=== PATIENT | male | born 1960 | race African-American/Black ===

== ENCOUNTER 2016-08-28 00:13 | Inpatient (IN) | payer MEDICARE, MEDICAID ==
[2016-08-28] VITALS (8 sets, daily range): BP systolic 97–140; BP diastolic 59–78
[~2016-08-28] VITALS: Ht 180.3 cm; Wt 49.9 kg
[2016-08-28] MEDS ORDERED: Morphine Sulfate 2mg/ml Inj IVP ONE (00:30)
[2016-08-28] MEDS ORDERED: Famotidine 20 MG/ 2ML VIAL IVP ONE (01:00)
[2016-08-28 01:16] LABS: APPEARANCE,URINE CLEAR; BASOPHILS % (AUTO) 0.6 % (0.0-2.0); EOSINOPHILS % (AUTO) 1.7 % (0.0-3.0); KETONES,URINE NEGATIVE (NEGATIVE); LEUKOCYTE ESTERASE ,URINE NEGATIVE (NEGATIVE); LYMPHOCYTES % (AUTO) 9.8 % (20.0-45.0); MEAN CORPUSCULAR HEMOGLOBIN 26.6 PG (27.0-31.0); MEAN CORPUSCULAR HGB CONC 31.3 G/DL (32.0-36.0); MEAN CORPUSCULAR VOLUME 85 FL (80-99); MEAN PLATELET VOLUME 5.5 FL (6.5-10.1); MONOCYTES % (AUTO) 5.2 % (1.0-10.0); NEUTROPHILS % (AUTO) 82.7 % (45.0-75.0); NITRITE,URINE NEGATIVE (NEGATIVE); PH,URINE 7 (4.5-8.0); PLATELET COUNT 455 K/UL (150-450); RED BLOOD COUNT 3.73 M/UL (4.70-6.10); RED CELL DISTRIBUTION WIDTH 18.5 % (11.6-14.8); UROBILINOGEN,URINE NORMAL MG/DL (0.0-1.0); WHITE BLOOD COUNT 17.8 K/UL (4.8-10.8)
[2016-08-28 01:17] LABS: PROTEIN,URINE NEGATIVE (NEGATIVE)
[2016-08-28 01:30] LABS: ALANINE AMINOTRANSFERASE 20 U/L (3-41); ALBUMIN/GLOBULIN RATIO 0.6 (1.0-2.7); ANION GAP 13 (5-15); ASPARTATE AMINO TRANSFERASE 34 U/L (5-40); CALCIUM 8.6 mg/dL (8.6-10.2); CARBON DIOXIDE 26 mEQ/L (20-30); CHLORIDE 101 mEQ/L (98-107); CREATININE 0.9 mg/dL (0.7-1.2); GLOMERULAR FILTRATION RATE > 60 mL/min (>60); HEMOLYSIS 19; LIPASE 44 U/L (< 60); POTASSIUM 3.8 mEQ/L (3.4-4.9); SODIUM 140 mEQ/L (135-145); TOTAL PROTEIN 6.3 g/dL (6.6-8.7)
[2016-08-28] MEDS ORDERED: TOPROL XL50 MG ORAL (03:29)
[2016-08-28] MEDS ORDERED: PANTOPRAZOLE SO40 MG ORAL (03:29)
[2016-08-28] MEDS ORDERED: NORCO 10-325 T1 EACH ORAL (03:29)
[2016-08-28] MEDS ORDERED: TAMSULOSIN HCL0.4 MG ORAL (03:29)
[2016-08-28] MEDS ORDERED: DOCUSATE SODIU100 MG ORAL (03:29)
[2016-08-28] MEDS ORDERED: AMLODIPINE BESY10 MG ORAL (03:29)
[2016-08-28] MEDS ORDERED: MILK OF MA2400 MG/10 ORAL (03:29)
--- NOTE | 2016-08-28 03:44 | Emergency Room Report ---
History of Present Illness General Chief Complaint: Abdominal Pain Source: Patient, Medical Record, EMS Present Illness HPI Is a 56-year-old male coming from a senior care. He had a history of gastritis and drug abuse. He was admitted recently to the senior care after abdominal surgery for what sounds like a perforated ulcer. He present tonight with chief complaint abdominal pain with vomiting and diarrhea. This occurred acutely. He said he was vomiting blood and bloody diarrhea. Lerona weak and tired. Denies chest pain. Denies any fever or chills. Pain is 5/10. Allergies: Coded Allergies: No Known Allergies (Unverified , 08/28/16) Patient History Past Medical History: see triage record, old chart reviewed Past Surgical History: other Pertinent Family History: none Social History: Denies: drug use Immunizations: other Reviewed Nursing Documentation: PMH: Agreed, PSxH: Agreed Nursing Documentation-PMH Hx COPD: Yes Hx Cerebrovascular Accident: Yes Review of Systems Eye: Denies: blurred vision, eye pain ENT: Denies: ear pain, nose congestion, throat swelling Respiratory: Denies: cough, shortness of breath Cardiovascular: Denies: chest pain, palpitations Gastrointestinal: Reports: abdominal pain, diarrhea, nausea, vomiting Musculoskeletal: Denies: back pain, joint pain Skin: Denies: rash Neurological: Denies: headache, numbness Endocrine: Denies: increased thirst, increased urine Hematologic/Lymphatic: Denies: easy bruising All Other Systems: negative except mentioned in HPI Physical Exam Vital Signs Date Time Temp Pulse Resp B/P Pulse Ox O2 Delivery O2 Flow Rate FiO2 08/28/16 00:18 97.9 79 18 116/78 100 Room Air vitals normal Sp02 EP Interpretation: reviewed, normal General Appearance: no apparent distress, alert, thin, Chronically Ill Head: normocephalic, atraumatic Eyes: bilateral eye EOMI, bilateral eye PERRL ENT: hearing grossly normal, normal pharynx Neck: full range of motion, supple, no meningismus Respiratory: chest non-tender, lungs clear, normal breath sounds Cardiovascular #1: regular rate, rhythm, no murmur Gastrointestinal: no mass, no organomegaly, no bruit, non-distended, abnormal bowel sounds - Decreased, tenderness - Epigastric Musculoskeletal: back normal, normal range of motion Psychiatric: mood/affect normal Skin: warm/dry Medical Decision Making Diagnostic Impression: Primary Impression: SBO (small bowel obstruction) Additional Impressions: Upper GI bleed Dehydration Anemia in chronic illness ER Course Patient present with epigastric pain and upper GI bleed. Able globe stable. He refused an NG tube. No active bleeding here. Patient hydrated here. Will admit for further workup. Laboratory Tests Test 08/28/16 01:00 White Blood Count 17.8 K/UL (4.8-10.8) H Red Blood Count 3.73 M/UL (4.70-6.10) L Hemoglobin 9.9 G/DL (14.2-18.0) L Hematocrit 31.7 % (42.0-52.0) L Mean Corpuscular Volume 85 FL (80-99) Mean Corpuscular Hemoglobin 26.6 PG (27.0-31.0) L Mean Corpuscular Hemoglobin Concent 31.3 G/DL (32.0-36.0) L Red Cell Distribution Width 18.5 % (11.6-14.8) H Platelet Count 455 K/UL (150-450) H Mean Platelet Volume 5.5 FL (6.5-10.1) L Neutrophils (%) (Auto) 82.7 % (45.0-75.0) H Lymphocytes (%) (Auto) 9.8 % (20.0-45.0) L Monocytes (%) (Auto) 5.2 % (1.0-10.0) Eosinophils (%) (Auto) 1.7 % (0.0-3.0) Basophils (%) (Auto) 0.6 % (0.0-2.0) Urine Color Yellow Urine Appearance Clear Urine pH 7 (4.5-8.0) Urine Specific [place] 1.010 (1.005-1.035) Urine Protein Negative (NEGATIVE) Urine Glucose (UA) 1+ (NEGATIVE) H Urine Ketones Negative (NEGATIVE) Urine Occult Blood Negative (NEGATIVE) Urine Nitrite Negative (NEGATIVE) Urine Bilirubin Negative (NEGATIVE) Urine Urobilinogen Normal MG/DL (0.0-1.0) Urine Leukocyte Esterase Negative (NEGATIVE) Sodium Level 140 mEQ/L (135-145) Potassium Level 3.8 mEQ/L (3.4-4.9) Chloride Level 101 mEQ/L (98-107) Carbon Dioxide Level 26 mEQ/L (20-30) Anion Gap 13 (5-15) Blood Urea Nitrogen 13 mg/dL (7-23) Creatinine 0.9 mg/dL (0.7-1.2) Estimat Glomerular Filtration Rate > 60 mL/min (>60) Glucose Level 143 mg/dL (74-106) H Calcium Level 8.6 mg/dL (8.6-10.2) Total Bilirubin < 0.2 mg/dL (0.0-1.2) Aspartate Amino Transf (AST/SGOT) 34 U/L (5-40) Alanine Aminotransferase (ALT/SGPT) 20 U/L (3-41) Alkaline Phosphatase 98 U/L (40-129) Total Protein 6.3 g/dL (6.6-8.7) L Albumin 2.4 g/dL (3.5-5.2) L Globulin 3.9 g/dL Albumin/Globulin Ratio 0.6 (1.0-2.7) L Lipase 44 U/L (< 60) Lab Results Impression labs with leukocytosis EKG Diagnostic Results EKG Time: 03:43 Rate: normal Rhythm: NSR ST Segments: no acute changes Rhythm Strip Diag. Results Rhythm Strip Time: 03:43 EP Interpretation: yes Rate: 78 Rhythm: NSR, no PVC's, no ectopy CT/MRI/US Diagnostic Results CT/MRI/US Diagnostic Results : Imaging Test Ordered: CT abdomen and pelvis Impression Read by radiologist. Findings concern for obstruction at the level of the third duodenum. Postsurgical changes Last Vital Signs Date Time Temp Pulse Resp B/P Pulse Ox O2 Delivery O2 Flow Rate FiO2 08/28/16 00:25 98.2 76 18 97/59 96 Room Air Status: improved Disposition: ADMITTED INPATIENT Condition: Serious Referrals: NON PHYSICIAN (PCP) NHI LAWRENCE M.D. Aug 28, 2016 03:44
[2016-08-28] MEDS ORDERED: Nitroglycerin Subl 0.4mg tab (Bottle Of 25) SL PRN (07:15)
[2016-08-28] MEDS ORDERED: Miralax 17gm pkt ORAL PRN (07:15)
[2016-08-28] MEDS ORDERED: Mylanta II UD 30ml ORAL PRN (07:15)
--- NOTE | 2016-08-28 07:34 | General Progress Note ---
Progress Note Progress Note Pt with PUD perforation with recent surgery at [facility], discharged 1 week ago, eating well etc.. He developed N/V yesterday with 1 episode of bloody emesis, brought to ED. Now comfortable, no N/V, pain decreased but expected postop pain. Afebrile, VSS Abdomen: soft, BS normal, no masses, old drain sites dry, no distention. WBC 17K H/H OK, Lytes OK. CAT scan abd: distended stomach, otherwise no other obvious problems except for colonic stool large amts. IMP: abdominal pain, 1 episode of bloody emesis yesterday S/P peptic ulcer disease recently operated for perf'd ulcer with OK recovery, R/O gastric outlet obstruction. For now, GI eval, poss endoscopy or UGI series to r/o gastric outlet obstruction. NAM Kang Aug 28, 2016 07:34
--- NOTE | 2016-08-28 08:52 | Diagnostic Imaging Report ---
Indications: Abdominal pain Technique: Continuous helical CT imaging of the abdomen and pelvis was performed with automatic exposure control on a Siemens sensation [address] scanner. Axial, coronal, sagittal images reconstructed at 3 mm slice thickness. No oral or IV contrast was administered per requesting physician's order, despite no contraindications listed. CTDI volume(s): 11 mGy Total DLP: 576 mGy-cm Findings: Comparison: None Lack of IV and oral contrast limits evaluation. Stomach, duodenum to point of crossing between the aorta and superior mesenteric artery are significantly dilated, fluid-filled with air-fluid levels. Multiple branching curvilinear opacities are present adjacent to the gastroduodenal junction. Remainder the gastrointestinal tract nondilated. Multiple segments of small bowel mural thickening in the left side of the abdomen cannot be excluded. Appendix unremarkable. Increased feces throughout colon. He 0.5 cm elongated cystic lesion versus fluid-filled structure resides within or adjacent to the posterior margin of hepatic segment 3. No extraluminal gas or loculated fluid collections demonstrated. Gas is present within multiple mildly dilated left intrahepatic bile ducts. Gallbladder wall is diffusely thickened and edematous. Common bile duct mildly distended and fluid-filled with tiny gas bubble, maximum diameter 8 mm. Subcentimeter circumscribed low-attenuation focus upper pole cortex right kidney. Scattered arterial mural calcifications. No obvious flow-limiting stenosis or occlusion. Urinary bladder distended with apparent mild diffuse mural thickening. Remainder visualized abdominopelvic anatomy demonstrates no other obvious acute abnormality. Increased interstitial markings and dependent portions both lung bases. Disc margin osteophytes lumbar, lower thoracic spine. Impression: Pneumobilia may be secondary to prior sphincterotomy/recent instrumentation, ascending cholangitis, less likely pathologic communication between the bile ducts and adjacent bowel. Diffuse mural thickening/edema of the gallbladder may be secondary to adjacent pathology, though intrinsic inflammation not excluded. Correlate clinically. Nonspecific 3.5 cm fluid-filled structure adjacent to left hepatic lobe, may represent hepatic cysts or adjacent nonspecific fluid collection, etiology indeterminate. Abscess not excludable. Curvilinear densities in right upper quadrant demonstrate a vascular appearance and may represent previous arterial embolization. Correlate historically. Substantial dilation of stomach and duodenum to level of superior mesenteric artery, nondilated distally. This may represent obstruction by extrinsic compression secondary to nutcracker syndrome Pathologic mural thickening of multiple left abdominal small bowel loops not excludable, nonspecific if real Suggestion of constipation Arteriosclerosis Small right renal cortical cyst Pulmonary bibasal interstitial disease, nonspecific Mild degenerative spondylosis Repeat CT scan with full oral and IV contrast preparation recommended for more complete evaluation. This correlates with [facility] preliminary report.
[2016-08-28] MEDS ORDERED: Heparin 5000 units/ml inj SUBQ SCH (09:00)
[2016-08-28] MEDS: D5 1/2NS 1,000 ML IV SCH ×2 (09:50→22:20)
[2016-08-28] MEDS: Piperacillin/Tazobactam 3.375 GM in NS 110 ML IVPB SCH ×2 (10:19→18:12)
--- NOTE | 2016-08-28 12:19 | History and Physical ---
History of Present Illness General Date patient seen: Aug 28, 2016 Reason for Hospitalization: Abdominal Pain Present Illness HPI 56 year old male with hx of Hepatitis C, HTN, cocaine use PUD perforation with recent surgery at [facility], discharged 1 week ago. He developed N/V yesterday with 1 episode of bloody emesis, brought to ED. He is admitted to telemetry for further evaluation. Surgery has seen the patient already. Awaiting GI evaluation. Allergies: Coded Allergies: No Known Allergies (Unverified , 08/28/16) Medication History Scheduled Amlodipine Besylate* (Amlodipine Besylate*), 10 MG ORAL DAILY, (Reported) Docusate Sodium* (Docusate Sodium*), 100 MG ORAL TWICE A DAY, (Reported) Magnesium Hydroxide* (Milk Of Magnesia*), 30 ML ORAL DAILY, (Reported) Metoprolol Succinate* (Toprol Xl*), 50 MG ORAL DAILY, (Reported) Pantoprazole* (Pantoprazole*), 40 MG ORAL DAILY, (Reported) Tamsulosin Hcl (Tamsulosin Hcl*), 0.4 MG ORAL BEDTIME, (Reported) Scheduled PRN Hydrocodone Bit/Acetaminophen 10-325* ([place] 10-325*), 1 TAB ORAL Q6H PRN for For Pain, (Reported) Patient History Healthcare decision maker Resuscitation status Full Code Advanced Directive on File No Past Medical/Surgical History Past Medical/Surgical History: (1) HTN (hypertension) (2) Cocaine abuse (3) Hepatitis C Review of Systems All Other Systems: negative except mentioned in HPI Physical Exam Lines, tubes and drains: central line HEENT: normocephalic, atraumatic Neck: non-tender, normal alignment Respiratory/Chest: chest wall non-tender, lungs clear Breasts: no masses Cardiovascular/Chest: normal peripheral pulses, normal rate Genitourinary/Rectal: normal genital exam Skin Exam: normal pigmentation Last 24 Hour Vital Signs Date Time Temp Pulse Resp B/P Pulse Ox O2 Delivery O2 Flow Rate FiO2 08/28/16 08:43 71 140/78 08/28/16 08:43 79 123/68 08/28/16 08:00 98.2 71 18 140/78 100 Room Air 08/28/16 04:35 98.1 79 20 123/68 100 Room Air 08/28/16 04:34 88 08/28/16 04:25 98.2 72 16 105/69 99 Room Air 08/28/16 04:25 72 16 105/69 99 Room Air 08/28/16 02:20 98.4 74 18 101/68 97 Room Air 08/28/16 01:38 98.4 08/28/16 00:25 98.2 76 18 97/59 96 Room Air 08/28/16 00:18 97.9 79 18 116/78 100 Room Air Intake and Output 08/27/16 08/28/16 19:00 07:00 Intake Total 1120 ml Output Total 300 ml Balance 820 ml Intake Oral 120 ml IV Total 1000 ml Output Urine Total 300 ml # Voids 1 Laboratory Tests Test 08/28/16 01:00 White Blood Count 17.8 K/UL (4.8-10.8) H Red Blood Count 3.73 M/UL (4.70-6.10) L Hemoglobin 9.9 G/DL (14.2-18.0) L Hematocrit 31.7 % (42.0-52.0) L Mean Corpuscular Volume 85 FL (80-99) Mean Corpuscular Hemoglobin 26.6 PG (27.0-31.0) L Mean Corpuscular Hemoglobin Concent 31.3 G/DL (32.0-36.0) L Red Cell Distribution Width 18.5 % (11.6-14.8) H Platelet Count 455 K/UL (150-450) H Mean Platelet Volume 5.5 FL (6.5-10.1) L Neutrophils (%) (Auto) 82.7 % (45.0-75.0) H Lymphocytes (%) (Auto) 9.8 % (20.0-45.0) L Monocytes (%) (Auto) 5.2 % (1.0-10.0) Eosinophils (%) (Auto) 1.7 % (0.0-3.0) Basophils (%) (Auto) 0.6 % (0.0-2.0) Urine Color Yellow Urine Appearance Clear Urine pH 7 (4.5-8.0) Urine Specific [place] 1.010 (1.005-1.035) Urine Protein Negative (NEGATIVE) Urine Glucose (UA) 1+ (NEGATIVE) H Urine Ketones Negative (NEGATIVE) Urine Occult Blood Negative (NEGATIVE) Urine Nitrite Negative (NEGATIVE) Urine Bilirubin Negative (NEGATIVE) Urine Urobilinogen Normal MG/DL (0.0-1.0) Urine Leukocyte Esterase Negative (NEGATIVE) Sodium Level 140 mEQ/L (135-145) Potassium Level 3.8 mEQ/L (3.4-4.9) Chloride Level 101 mEQ/L (98-107) Carbon Dioxide Level 26 mEQ/L (20-30) Anion Gap 13 (5-15) Blood Urea Nitrogen 13 mg/dL (7-23) Creatinine 0.9 mg/dL (0.7-1.2) Estimat Glomerular Filtration Rate > 60 mL/min (>60) Glucose Level 143 mg/dL (74-106) H Calcium Level 8.6 mg/dL (8.6-10.2) Total Bilirubin < 0.2 mg/dL (0.0-1.2) Aspartate Amino Transf (AST/SGOT) 34 U/L (5-40) Alanine Aminotransferase (ALT/SGPT) 20 U/L (3-41) Alkaline Phosphatase 98 U/L (40-129) Total Protein 6.3 g/dL (6.6-8.7) L Albumin 2.4 g/dL (3.5-5.2) L Globulin 3.9 g/dL Albumin/Globulin Ratio 0.6 (1.0-2.7) L Lipase 44 U/L (< 60) Height (Feet): 5 Height (Inches): 11.00 Weight (Pounds): 110 Medications Current Medications Medications (Trade) Dose Ordered Sig/Jaime Route PRN Reason Start Time Stop Time Status Last Admin Dose Admin Acetaminophen (Tylenol) 650 mg Q4H PRN ORAL fever 08/28/16 07:15 09/27/16 07:14 Al Hydroxide/Mg Hydroxide (Mylanta II) 30 ml Q6H PRN ORAL dyspepsia 08/28/16 07:15 09/27/16 07:14 Amlodipine Besylate (Norvasc) 10 mg DAILY ORAL 08/28/16 09:00 09/27/16 08:59 08/28/16 08:43 Dextrose STAT PRN IV Hypoglycemia 08/28/16 07:15 09/27/16 07:14 Dextrose/Sodium Chloride (D5 0.45% NS) 1,000 ml @ 75 mls/hr [id number] IV 08/28/16 09:00 09/27/16 08:59 08/28/16 09:50 Diphenhydramine HCl (Benadryl) 25 mg Q6H PRN ORAL Itching/Pruritis 08/28/16 07:15 09/27/16 07:14 Famotidine (Pepcid I.v.) 20 mg Q12HR IVP 08/28/16 21:00 09/27/16 20:59 Metoprolol Succinate (Toprol XL) 50 mg DAILY ORAL 08/28/16 09:00 09/27/16 08:59 08/28/16 08:43 Morphine Sulfate (Morphine Sulfate) 2 mg EVERY 4 HOURS PRN IVP severe Pain (Pain Scale 7-10) 08/28/16 07:15 09/04/16 07:14 Nitroglycerin (Ntg) 0.4 mg Q5M X 3 DOSES PRN SL Prn Chest Pain 08/28/16 07:15 09/27/16 07:14 Ondansetron HCl (Zofran) 4 mg Q6H PRN IVP Nausea & Vomiting 08/28/16 07:15 09/27/16 07:14 Piperacillin Sod/ Tazobactam Sod/ Sodium Chloride (Zosyn/Sodium Chloride) 110 ml @ 27.5 mls/hr Q8H IVPB 08/28/16 10:00 09/04/16 09:59 08/28/16 10:19 Polyethylene Glycol (Miralax) 17 gm HSPRN PRN ORAL Constipation 08/28/16 07:15 09/27/16 07:14 Tamsulosin HCl 0.4 mg 0.4 mg BEDTIME ORAL 08/28/16 21:00 09/27/16 20:59 Temazepam (Restoril) 15 mg HSPRN PRN ORAL Insomnia 08/28/16 07:15 09/04/16 07:14 Assessment/Plan Problem List: (1) Upper GI bleed ICD Codes: K92.2 - Gastrointestinal hemorrhage, unspecified SNOMED: 76419471 (2) Dehydration ICD Codes: E86.0 - Dehydration SNOMED: 64074696 (3) Perforated gastric ulcer ICD Codes: K25.5 - Chronic or unspecified gastric ulcer with perforation SNOMED: 0827643 (4) HTN (hypertension) ICD Codes: I10 - Essential (primary) hypertension SNOMED: 64194012 (5) Cocaine abuse ICD Codes: F14.10 - Cocaine abuse, uncomplicated SNOMED: 22520925, 466711012 (6) Hepatitis C ICD Codes: B19.20 - Unspecified viral hepatitis C without hepatic coma SNOMED: 63271831 Assessment/Plan NPO IV fluids symptomatic treatment check electrolytes prbc prn dvt prophylaxis monitor bp check h/h in am watch coagulation KASH PAUL Aug 28, 2016 12:19
--- NOTE | 2016-08-28 14:39 | Diagnostic Imaging Report ---
APPROVED REPORT CPT Code: 08913 Present Symptoms Comments: Abdominal pain BILATERAL: Imaging reveals a patent deep venous system bilaterally. There is no evidence of thrombus within the femoral, popliteal or tibial segments. The greater saphenous veins are also within normal limits. Doppler indicates normal spontaneous flow within these segments.
--- NOTE | 2016-08-28 15:17 | GI Initial Consult Note ---
López,Ning Angelo NTucker 08/28/16 1516: History of Present Illness General Date patient seen: Aug 28, 2016 Time patient seen: 15:11 Reason for Hospitalization: Abdominal Pain Referring physician: KASH STROUD Reason for Consultation: UGIB Present Illness HPI Is a 56-year-old male coming from a [facility]. He had a history of gastritis and drug abuse. He was admitted recently to the [facility] after abdominal surgery for what sounds like a perforated ulcer. He present tonight with chief complaint abdominal pain with vomiting and diarrhea. This occurred acutely. He said he was vomiting blood and bloody diarrhea. [place] weak and tired. Denies chest pain. Denies any fever or chills. Pain is 5/10. GI Consult. HPI as noted above. GI consulted for UGIB. Pt seen on floor, awake A&Ox4 NAD with no active s/sx of hematemesis or coffee grounds. According to the patient, he recently underwent an abdominal surgical at [facility] for possible umbilical hernia repair vs ulcer perforation. He stated he had episodes of hematemesis with bloody diarrhea. He presents today with leukocytosis and anemia due to acute blood loss. Unknown colonoscopy history. Home Meds Reported Medications Magnesium Hydroxide* (MILK OF MAGNESIA*) 2,400 Mg/10 Ml Oral.susp, 30 ML ORAL DAILY, ML 08/28/16 Hydrocodone Bit/Acetaminophen 10-325* (NORCO 10-325*) 1 Each Tablet, 1 TAB ORAL Q6H Y for For Pain, #10 TAB 0 Refills PRN PAIN 08/28/16 Docusate Sodium* (DOCUSATE SODIUM*) 100 Mg Capsule, 100 MG ORAL TWICE A DAY, CAP 08/28/16 Pantoprazole* (PANTOPRAZOLE*) 40 Mg Tablet.dr, 40 MG ORAL DAILY, TAB 08/28/16 Tamsulosin Hcl (TAMSULOSIN HCL*) 0.4 Mg Cap.er.24h, 0.4 MG ORAL BEDTIME, CAP 08/28/16 Metoprolol Succinate* (TOPROL XL*) 50 Mg Tab.er.24h, 50 MG ORAL DAILY, TAB 08/28/16 Amlodipine Besylate* (AMLODIPINE BESYLATE*) 10 Mg Tablet, 10 MG ORAL DAILY, TAB 08/28/16 Med list reviewed/reconciled: Yes Allergies: Coded Allergies: No Known Allergies (Unverified , 08/28/16) Patient History History Provided By: Patient, Medical Record PMH Narrative Hx COPD: Yes Hx Cerebrovascular Accident: Yes Social History: Reports: alcohol use - social, smoking - 20+ years Review of Systems All Other Systems: negative except mentioned in HPI Physical Exam Vital Signs Date Time Temp Pulse Resp B/P Pulse Ox O2 Delivery O2 Flow Rate FiO2 08/28/16 00:18 97.9 79 18 116/78 100 Room Air Sp02 EP Interpretation: reviewed Labs Laboratory Tests Test 08/28/16 01:00 White Blood Count 17.8 K/UL (4.8-10.8) H Red Blood Count 3.73 M/UL (4.70-6.10) L Hemoglobin 9.9 G/DL (14.2-18.0) L Hematocrit 31.7 % (42.0-52.0) L Mean Corpuscular Volume 85 FL (80-99) Mean Corpuscular Hemoglobin 26.6 PG (27.0-31.0) L Mean Corpuscular Hemoglobin Concent 31.3 G/DL (32.0-36.0) L Red Cell Distribution Width 18.5 % (11.6-14.8) H Platelet Count 455 K/UL (150-450) H Mean Platelet Volume 5.5 FL (6.5-10.1) L Neutrophils (%) (Auto) 82.7 % (45.0-75.0) H Lymphocytes (%) (Auto) 9.8 % (20.0-45.0) L Monocytes (%) (Auto) 5.2 % (1.0-10.0) Eosinophils (%) (Auto) 1.7 % (0.0-3.0) Basophils (%) (Auto) 0.6 % (0.0-2.0) Urine Color Yellow Urine Appearance Clear Urine pH 7 (4.5-8.0) Urine Specific [place] 1.010 (1.005-1.035) Urine Protein Negative (NEGATIVE) Urine Glucose (UA) 1+ (NEGATIVE) H Urine Ketones Negative (NEGATIVE) Urine Occult Blood Negative (NEGATIVE) Urine Nitrite Negative (NEGATIVE) Urine Bilirubin Negative (NEGATIVE) Urine Urobilinogen Normal MG/DL (0.0-1.0) Urine Leukocyte Esterase Negative (NEGATIVE) Sodium Level 140 mEQ/L (135-145) Potassium Level 3.8 mEQ/L (3.4-4.9) Chloride Level 101 mEQ/L (98-107) Carbon Dioxide Level 26 mEQ/L (20-30) Anion Gap 13 (5-15) Blood Urea Nitrogen 13 mg/dL (7-23) Creatinine 0.9 mg/dL (0.7-1.2) Estimat Glomerular Filtration Rate > 60 mL/min (>60) Glucose Level 143 mg/dL (74-106) H Calcium Level 8.6 mg/dL (8.6-10.2) Total Bilirubin < 0.2 mg/dL (0.0-1.2) Aspartate Amino Transf (AST/SGOT) 34 U/L (5-40) Alanine Aminotransferase (ALT/SGPT) 20 U/L (3-41) Alkaline Phosphatase 98 U/L (40-129) Total Protein 6.3 g/dL (6.6-8.7) L Albumin 2.4 g/dL (3.5-5.2) L Globulin 3.9 g/dL Albumin/Globulin Ratio 0.6 (1.0-2.7) L Lipase 44 U/L (< 60) General Appearance: well appearing, no apparent distress, alert, thin Head: normocephalic EENT: normal ENT inspection Neck: full range of motion, supple Respiratory: normal breath sounds, no respiratory distress Cardiovascular: normal rate Gastrointestinal: soft Rectal: deferred Genitourinary: no CVA tenderness Musculoskeletal: back normal Neurologic: normal inspection, alert, oriented x3, responsive Psychiatric: normal inspection, judgement/insight normal, memory normal Skin: normal inspection, normal color, no rash, warm/dry Lymphatic: normal inspection, no adenopathy Current Medications Current Medications Medications (Trade) Dose Ordered Sig/Jaime Route PRN Reason Start Time Stop Time Status Last Admin Dose Admin Acetaminophen (Tylenol) 650 mg Q4H PRN ORAL fever 08/28/16 07:15 09/27/16 07:14 Al Hydroxide/Mg Hydroxide (Mylanta II) 30 ml Q6H PRN ORAL dyspepsia 08/28/16 07:15 09/27/16 07:14 Amlodipine Besylate (Norvasc) 10 mg DAILY ORAL 08/28/16 09:00 09/27/16 08:59 08/28/16 08:43 Dextrose STAT PRN IV Hypoglycemia 08/28/16 07:15 09/27/16 07:14 Dextrose/Sodium Chloride (D5 0.45% NS) 1,000 ml @ 75 mls/hr [id number] IV 08/28/16 09:00 09/27/16 08:59 08/28/16 09:50 Diphenhydramine HCl (Benadryl) 25 mg Q6H PRN ORAL Itching/Pruritis 08/28/16 07:15 09/27/16 07:14 Famotidine (Pepcid I.v.) 20 mg Q12HR IVP 08/28/16 21:00 09/27/16 20:59 Metoprolol Succinate (Toprol XL) 50 mg DAILY ORAL 08/28/16 09:00 09/27/16 08:59 08/28/16 08:43 Morphine Sulfate (Morphine Sulfate) 2 mg EVERY 4 HOURS PRN IVP severe Pain (Pain Scale 7-10) 08/28/16 07:15 09/04/16 07:14 Nitroglycerin (Ntg) 0.4 mg Q5M X 3 DOSES PRN SL Prn Chest Pain 08/28/16 07:15 09/27/16 07:14 Ondansetron HCl (Zofran) 4 mg Q6H PRN IVP Nausea & Vomiting 08/28/16 07:15 09/27/16 07:14 Piperacillin Sod/ Tazobactam Sod/ Sodium Chloride (Zosyn/Sodium Chloride) 110 ml @ 27.5 mls/hr Q8H IVPB 08/28/16 10:00 09/04/16 09:59 08/28/16 10:19 Polyethylene Glycol (Miralax) 17 gm HSPRN PRN ORAL Constipation 08/28/16 07:15 09/27/16 07:14 Tamsulosin HCl 0.4 mg 0.4 mg BEDTIME ORAL 08/28/16 21:00 09/27/16 20:59 Temazepam (Restoril) 15 mg HSPRN PRN ORAL Insomnia 08/28/16 07:15 09/04/16 07:14 GI: Plan Problems: (1) Severe malnutrition (2) Hepatitis C (3) Anemia in chronic illness (4) Upper GI bleed (5) Perforated gastric ulcer (6) Dehydration Plan EGD scheduled for tomorrow. - CLD, NPO @ [place]. - hold all blood thinners monitor H&H, transfuse prn ppi BID abx fu labs obtain records from [facility] Discussed with . Thank you for referring this patient, we will follow. GAYLE GARCIA 08/29/16 1113: History of Present Illness General Reason for Hospitalization: Abdominal Pain Present Illness Home Meds Reported Medications Magnesium Hydroxide* (MILK OF MAGNESIA*) 2,400 Mg/10 Ml Oral.susp, 30 ML ORAL DAILY, ML 08/28/16 Hydrocodone Bit/Acetaminophen 10-325* (NORCO 10-325*) 1 Each Tablet, 1 TAB ORAL Q6H Y for For Pain, #10 TAB 0 Refills PRN PAIN 08/28/16 Docusate Sodium* (DOCUSATE SODIUM*) 100 Mg Capsule, 100 MG ORAL TWICE A DAY, CAP 08/28/16 Pantoprazole* (PANTOPRAZOLE*) 40 Mg Tablet.dr, 40 MG ORAL DAILY, TAB 08/28/16 Tamsulosin Hcl (TAMSULOSIN HCL*) 0.4 Mg Cap.er.24h, 0.4 MG ORAL BEDTIME, CAP 08/28/16 Metoprolol Succinate* (TOPROL XL*) 50 Mg Tab.er.24h, 50 MG ORAL DAILY, TAB 08/28/16 Amlodipine Besylate* (AMLODIPINE BESYLATE*) 10 Mg Tablet, 10 MG ORAL DAILY, TAB 08/28/16 Allergies: Coded Allergies: No Known Allergies (Unverified , 08/28/16) GI: Plan Plan The patient was seen and examined at bedside and all new and available data was reviewed in the patients chart. I agree with the above findings, impression and plan. (Patient seen earlier today. Signature stamp does not reflect patient encounter time.). -Ester Ray MDh Angelo Covarrubias Aug 28, 2016 15:16 AGYLE GARCIA Aug 29, 2016 11:13
--- NOTE | 2016-08-28 18:37 | Consultation ---
Consult Note Consult Note ID CONSULT: Dict# [id number] Assessment/Plan ASSESSMENT: 56 y/o male with: // Pneumobilia - post-op vs r/o cholangitis / cholecystitis - LFTs WNL - CT: Diffuse mural thickening/edema of the gallbladder may be secondary to adjacent pathology, though intrinsic inflammation not excluded. // Nonspecific 3.5 cm fluid-filled structure adjacent to left hepatic lobe, may represent hepatic cysts or adjacent nonspecific fluid collection, etiology indeterminate. Abscess not excludable. // h/o HCV - LFTs WNL // Leukocytosis, left shift, afebrile // UGIB / hematemesis - GI following, plan EGD - SP recent perforated PUD, hernia repair @ [facility] // Acute blood loss anemia // Gastric distension r/o gastric outlet obstruction // Thrombocytosis // Cachexia // h/o polysubstance abuse // [place] resident // NKDA // Full Code PLAN: - continue empiric zosyn d# 1 - check blood cultures, HIV - EGD per GI - monitor H&H, transfuse prn - monitor CBC, temperatures - monitor CMP Thanks! Will follow COLTON GALVAN Aug 28, 2016 18:37
[2016-08-28] MEDS: Tamsulosin 0.4mg cap ORAL SCH (20:20)
[2016-08-28] MEDS ORDERED: Famotidine 20 MG/ 2ML VIAL IVP SCH (21:00)
[2016-08-28] MEDS: Morphine Sulfate 2mg/ml Inj IVP PRN (21:10)
--- NOTE | 2016-08-28 22:00 | Consultation ---
DATE OF CONSULTATION: 08/28/2016 INFECTIOUS DISEASE CONSULTATION REQUESTING PHYSICIAN: Nilesh Reddy M.D. REASON FOR CONSULTATION: Leukocytosis. HISTORY OF PRESENT ILLNESS: This is a 56-year-old male with a history of polysubstance abuse, was [facility] on [facility]/2016 for evaluation of nausea and hematemesis. The patient reported that he recently had a perforated peptic ulcer repair at [facility]. Denies abdominal pain, fevers, or chills. He has leukocytosis with left shift. No fevers. Hemoglobin is 9.9 and reactive thrombocytosis. No cultures have been sent and he has been started on empiric Zosyn. ID now consulted to assist in management. PAST MEDICAL HISTORY: 1. Gastroesophageal reflux disease. 2. Hepatitis C. 3. Hypertension. 4. Chronic obstructive pulmonary disease. 5. Peptic ulcer disease. 6. History of stroke. PAST SURGICAL HISTORY: Perforated peptic ulcer and hernia repair at [facility]. ALLERGIES: No known drug allergies. MEDICATIONS: 1. Zosyn. 2. Flomax. 3. Protonix. 4. Norvasc. 5. Metoprolol. FAMILY HISTORY: Noncontributory. SOCIAL HISTORY: The patient is resident of a [facility]. He has a history of polysubstance abuse. REVIEW OF SYSTEMS: As per history of present illness. Ten systems reviewed. All pertinent positives and negatives noted. PHYSICAL EXAMINATION: VITAL SIGNS: Maximum temperature 98.4 degrees, blood pressure 111/60, heart rate in the 70s, respiratory rate is 17, and saturating at 100% on room air. GENERAL: No apparent distress. Nontoxic appearing. HEENT: Poor dentition. No thrush. CARDIOVASCULAR: Regular rate and rhythm. No murmurs. PULMONARY: Clear to auscultation bilaterally. GASTROINTESTINAL: Well-healed surgical incision. Hypoactive bowel sounds. Nondistended. Mild tenderness to palpation. MUSCULOSKELETAL: No edema. SKIN: No rash. NEUROLOGIC: Alert and oriented x3, nonfocal. LABORATORY DATA: White blood cell count 17.8 with left shift, hemoglobin 9.9, and platelets 455,000. Sodium 140, potassium 3.8, chloride 101, bicarbonate 26, BUN 13, and creatinine 0.9. Liver function tests and lipase are within normal limits. Urinalysis is negative. MICROBIOLOGY: None. IMAGIN. On 08/28/2016, bilateral lower extremity Doppler ultrasound negative for DVT. 2. CT of abdomen and pelvis with pneumobilia, gallbladder wall thickening, perihepatic fluid, gastric and duodenal distention. Please refer to the full report for full details. ASSESSMENT: 1. Pneumobilia may be postoperative in nature rule out cholangitis or cholecystitis. Liver function tests are within normal limits. CT shows diffuse wall thickening of the gallbladder. 2. Nonspecific perihepatic fluid. Abscess not excludable. 3. History of hepatitis C with normal liver function tests. 4. Leukocytosis with left shift and afebrile. 5. Upper gastrointestinal bleed/hematemesis. Gastrointestinal is following and is planned for esophagogastroduodenoscopy. He is status post recent perforated peptic ulcer and hernia repair at [facility]. 6. Acute blood loss anemia. 7. Gastric distention rule out gastric outlet obstruction. 8. Thrombocytosis. 9. Cachexia. 10. History of polysubstance abuse. 11. skilled nursing resident. 12. No known drug allergies. 13. Full Code. PLAN: 1. Continue empiric Zosyn day #1. 2. Check blood cultures. 3. Upper endoscopy per GI. 4. Monitor H and H and transfuse as needed. 5. Monitor CBC and temperatures. 6. Monitor CMP. Thank you. We will follow. Hector Davidson M.D. DR: FLYNN JOB#: [id number] CC: Nilesh Reddy M.D.; Fax#: [phone] Palu M.D; Fax#: [phone]
[2016-08-29] VITALS (10 sets, daily range): BP systolic 99–140; BP diastolic 60–90
--- NOTE | 2016-08-29 00:29 | Wound Care Consultation ---
Wound Assessment Wound Assessment #1: Wound Present on Admission: Yes New Wound: No Status Change of Wound: No Wound Location Body Site Modif: mid Wound Location Body Site: sacral Wound Type: pressure ulcer Deborah Test: Does not Deborah Wound Thickness: Full Thickness - sacr tissue Wound Length: 1.0 Wound Width: 1.0 Percent of Wound [place]/Red: 100 Wound Drainage Amount: None Wound Drainage Odor: None/Absent Tissue Surrounding Wound: Intact Wound General Appearance: Asymptomatic Wound Assessment #2: Wound Number: #2 Wound Present on Admission: Yes New Wound: No Status Change of Wound: No Wound Location Body Site Modif: right Wound Location Body Site: knee Wound Type: pressure ulcer Deborah Test: Does not Deborah Pressure Ulcer Stage: II - resolving Wound Thickness: Partial Thickness Wound Length: 1.5 Wound Width: 1.0 Percent of Wound [place]/Red: 100 Wound Drainage Amount: None Wound Drainage Odor: None/Absent Tissue Surrounding Wound: Intact Wound General Appearance: Reddened Wound Assessment #3: Wound Number: #3 Wound Present on Admission: Yes New Wound: No Status Change of Wound: No Wound Location Body Site: back Wound Type: pressure ulcer Deborah Test: Does not Deborah Pressure Ulcer Stage: II Wound Thickness: Partial Thickness Wound Length: 0.8 Wound Width: 0.5 Wound Depth: 0.1 Percent of Wound [place]/Red: 100 Wound Drainage Description: Serosanguineous Wound Drainage Amount: Scant Wound Drainage Odor: None/Absent Tissue Surrounding Wound: Intact Wound General Appearance: Reddened Wound Comment #1 Sacral area full thickness scar tissue pressure ulcer #2 Right knee stage II resolving pressure ulcer #3 Mid Back stage II pressure ulcer #4 Scattered dry scabs on abdominal area Recommendation -Right knee stage II resolving pressure ulcer and Mid Back stage II pressure ulcer Cleanse with saline, pat dry, apply Triad cream, cover with bordered gauze daily and PRN soiled/dislodged -Keep clean and dry -Turn and reposition -Optimize nutrition -Low air loss SPR overlay mattress -Heel protector on both heels -Offload both heels -Assess and f/u accordingly for any changes BERONICA MOODY RN Aug 29, 2016 00:29
[2016-08-29] MEDS: Piperacillin/Tazobactam 3.375 GM in NS 110 ML IVPB SCH ×3 (02:25→20:37)
--- NOTE | 2016-08-29 06:41 | Anethesia Preoperative Eval ---
Anesthesia Pre-op PMH/ROS General Date of Evaluation: Aug 29, 2016 Time of Evaluation: 06:40 Anesthesiologist: chela Mallampati Score Class I : Soft palate, uvula, fauces, pillars visible Class II: Soft palate, uvula, fauces visible Class III: Soft palate, base of uvula visible Class IV: Only hard plate visible Mallampati Classification: Class II Surgeon: tyshawn Diagnosis: gibleed Surgical Procedure: colonoscopy Anesthesia History: none Social History: smoking Family History: no anesthesia problems Allergies: Coded Allergies: No Known Allergies (Unverified , 08/28/16) Medications: see eMAR Past Medical History Pulmonary: Reports: COPD Neurologic/Psychiatric: Reports: CVA Hematology/Immune: Reports: anemia PMH Narrative: substance abuse Anesthesia Pre-op Phys. Exam Physician Exam Last Vital Signs Date Time Temp Pulse Resp B/P Pulse Ox O2 Delivery O2 Flow Rate FiO2 08/29/16 11:21 97.5 91 20 114/74 100 Nasal Cannula 2.0 Last Vital Signs Date Time Temp Pulse Resp B/P Pulse Ox O2 Delivery O2 Flow Rate FiO2 08/29/16 04:00 97.6 100 20 99/64 100 Room Air Constitutional: NAD Neurologic: CN 2-12 intact Cardiovascular: RRR Respiratory: CTA Gastrointestinal: S/NT/ND Airway Exam Mallampati Score: Class II MO: full Neck: supple TMD: 2fb ROM: full Teeth: missing Anesthesia Pre-op A/P Labs Labs Test 08/28/16 01:00 08/29/16 07:25 White Blood Count 17.8 K/UL (4.8-10.8) 11.2 K/UL (4.8-10.8) Red Blood Count 3.73 M/UL (4.70-6.10) 2.41 M/UL (4.70-6.10) Hemoglobin 9.9 G/DL (14.2-18.0) 6.5 G/DL (14.2-18.0) Hematocrit 31.7 % (42.0-52.0) 20.4 % (42.0-52.0) Mean Corpuscular Volume 85 FL (80-99) 85 FL (80-99) Mean Corpuscular Hemoglobin 26.6 PG (27.0-31.0) 27.1 PG (27.0-31.0) Mean Corpuscular Hemoglobin Concent 31.3 G/DL (32.0-36.0) 31.9 G/DL (32.0-36.0) Red Cell Distribution Width 18.5 % (11.6-14.8) 19.0 % (11.6-14.8) Platelet Count 455 K/UL (150-450) 367 K/UL (150-450) Mean Platelet Volume 5.5 FL (6.5-10.1) 5.4 FL (6.5-10.1) Neutrophils (%) (Auto) 82.7 % (45.0-75.0) % (45.0-75.0) Lymphocytes (%) (Auto) 9.8 % (20.0-45.0) % (20.0-45.0) Monocytes (%) (Auto) 5.2 % (1.0-10.0) % (1.0-10.0) Eosinophils (%) (Auto) 1.7 % (0.0-3.0) % (0.0-3.0) Basophils (%) (Auto) 0.6 % (0.0-2.0) % (0.0-2.0) Urine Color Yellow Urine Appearance Clear Urine pH 7 (4.5-8.0) Urine Specific [place] 1.010 (1.005-1.035) Urine Protein Negative (NEGATIVE) Urine Glucose (UA) 1+ (NEGATIVE) Urine Ketones Negative (NEGATIVE) Urine Occult Blood Negative (NEGATIVE) Urine Nitrite Negative (NEGATIVE) Urine Bilirubin Negative (NEGATIVE) Urine Urobilinogen Normal MG/DL (0.0-1.0) Urine Leukocyte Esterase Negative (NEGATIVE) Sodium Level 140 mEQ/L (135-145) 139 mEQ/L (135-145) Potassium Level 3.8 mEQ/L (3.4-4.9) 4.0 mEQ/L (3.4-4.9) Chloride Level 101 mEQ/L (98-107) 101 mEQ/L (98-107) Carbon Dioxide Level 26 mEQ/L (20-30) 25 mEQ/L (20-30) Anion Gap 13 (5-15) 13 (5-15) Blood Urea Nitrogen 13 mg/dL (7-23) 29 mg/dL (7-23) Creatinine 0.9 mg/dL (0.7-1.2) 0.9 mg/dL (0.7-1.2) Estimat Glomerular Filtration Rate > 60 mL/min (>60) > 60 mL/min (>60) Glucose Level 143 mg/dL (74-106) 110 mg/dL (74-106) Calcium Level 8.6 mg/dL (8.6-10.2) 8.3 mg/dL (8.6-10.2) Total Bilirubin < 0.2 mg/dL (0.0-1.2) < 0.2 mg/dL (0.0-1.2) Aspartate Amino Transf (AST/SGOT) 34 U/L (5-40) 26 U/L (5-40) Alanine Aminotransferase (ALT/SGPT) 20 U/L (3-41) 17 U/L (3-41) Alkaline Phosphatase 98 U/L (40-129) 63 U/L (40-129) Total Protein 6.3 g/dL (6.6-8.7) 6.0 g/dL (6.6-8.7) Albumin 2.4 g/dL (3.5-5.2) 2.4 g/dL (3.5-5.2) Globulin 3.9 g/dL 3.6 g/dL Albumin/Globulin Ratio 0.6 (1.0-2.7) 0.6 (1.0-2.7) Lipase 44 U/L (< 60) 29 U/L (< 60) Differential Total Cells Counted 100 Neutrophils % (Manual) 76 % (45-75) Lymphocytes % (Manual) 21 % (20-45) Monocytes % (Manual) 2 % (1-10) Eosinophils % (Manual) 1 % (0-3) Basophils % (Manual) 0 % (0-2) Band Neutrophils 0 % (0-8) Other Cell Type Pathologist comment Platelet Estimate Adequate Platelet Morphology Normal Hypochromasia 1+ Anisocytosis 1+ Prothrombin Time 10.0 SEC (9.30-11.50) Prothromb Time International Ratio 1.0 (0.9-1.1) Activated Partial Thromboplast Time 26 SEC (23-33) Amylase Level 69 U/L (10-110) HIV (1&2) Antibody Rapid Negative (NEGATIVE) Risk Assessment & Plan Assessment: gi bleed anemia Plan: colonoscopy Status Change Before Surgery: No Pre-Antibiotics Drug: LUIGI Gan Aug 29, 2016 06:41
--- NOTE | 2016-08-29 07:58 | General Progress Note ---
Progress Note Progress Note Afebrile, wants to "go home".. No pain, no N/V or distention. Awaiting UGI endoscopy today. Nothing surgical at this time unless GI finds an obstructive process. NAM GILLESPIE Aug 29, 2016 07:58
[2016-08-29 08:02] LABS: MEAN CORPUSCULAR HEMOGLOBIN 27.1 PG (27.0-31.0); MEAN CORPUSCULAR HGB CONC 31.9 G/DL (32.0-36.0); MEAN CORPUSCULAR VOLUME 85 FL (80-99); MEAN PLATELET VOLUME 5.4 FL (6.5-10.1); PLATELET COUNT 367 K/UL (150-450); RED BLOOD COUNT 2.41 M/UL (4.70-6.10); WHITE BLOOD COUNT 11.2 K/UL (4.8-10.8)
[2016-08-29 08:31] LABS: ALANINE AMINOTRANSFERASE 17 U/L (3-41); ALBUMIN/GLOBULIN RATIO 0.6 (1.0-2.7); AMYLASE 69 U/L (10-110); ANION GAP 13 (5-15); ASPARTATE AMINO TRANSFERASE 26 U/L (5-40); CALCIUM 8.3 mg/dL (8.6-10.2); CARBON DIOXIDE 25 mEQ/L (20-30); CHLORIDE 101 mEQ/L (98-107); CREATININE 0.9 mg/dL (0.7-1.2); GLOMERULAR FILTRATION RATE > 60 mL/min (>60); HEMOLYSIS 1; LIPASE 29 U/L (< 60); SODIUM 139 mEQ/L (135-145)
[2016-08-29] MEDS: Morphine Sulfate 2mg/ml Inj IVP PRN ×4 (08:35→20:39)
--- NOTE | 2016-08-29 09:18 | Pre-Procedure Note/Attestation ---
Pre-Procedure Note/Attestation Complete Prior to Procedure Planned Procedure: not applicable Procedure Narrative: egd Indications for Procedure Pre-Operative Diagnosis: gib Attestation I attest that I discussed the nature of the procedure; its benefits; risks and complications; and alternatives (and the risks and benefits of such alternatives ), prior to the procedure, with the patient (or the patient's legal installation service representative). I attest that, if there was a reasonable possibility of needing a blood transfusion, the patient (or the patient's legal installation service representative) was given the [facility] standardized written summary, pursuant to the Deandre Sanju Blood Safety Act ([place] Health and Safety Code # 1645, as amended). I attest that I re-evaluated the patient just prior to the surgery and that there has been no change in the patient's H&P, except as documented below: GAYLE GARCIA Aug 29, 2016 09:18
[2016-08-29 09:33] LABS: ANISOCYTOSIS 1+; BAND NEUTROPHILS % (MANUAL) 0 % (0-8); BASOPHILS % (MANUAL) 0 % (0-2); EOSINOPHILS % (MANUAL) 1 % (0-3); HYPOCHROMASIA 1+; LYMPHOCYTES % (MANUAL) 21 % (20-45); NEUTROPHILS % (MANUAL) 76 % (45-75); PLATELET ESTIMATE ADEQUATE; PLATELET MORPHOLOGY NORMAL; TOTAL CELLS COUNTED 100
--- NOTE | 2016-08-29 10:00 | Infectious Diseases Prog Note ---
Assessment/Plan Assessment/Plan ASSESSMENT: 56 y/o male with: // Pneumobilia - post-op doubt cholangitis vs cholecystitis - LFTs WNL - CT: Diffuse mural thickening/edema of the gallbladder may be secondary to adjacent pathology, though intrinsic inflammation not excluded. // Nonspecific 3.5 cm fluid-filled structure adjacent to left hepatic lobe, may represent hepatic cysts or adjacent nonspecific fluid collection, etiology indeterminate. Abscess not excludable. // h/o HCV - LFTs WNL // Leukocytosis, left shift, improving // HIV: neg // UGIB / hematemesis - GI following, plan EGD - SP recent perforated PUD, hernia repair @ [facility] // Acute blood loss anemia // Gastric distension r/o gastric outlet obstruction // Thrombocytosis // Cachexia // h/o polysubstance abuse // [facility] resident // NKDA // Full Code PLAN: - continue empiric zosyn d# 2 - monitor blood cultures, - EGD per GI - monitor H&H, transfuse prn - monitor CBC, temperatures - monitor CMP - GI and GenSx following Subjective Allergies: Coded Allergies: No Known Allergies (Unverified , 08/28/16) Subjective EGD today Objective Vital Signs Last 24 Hour Vital Signs Date Time Temp Pulse Resp B/P Pulse Ox O2 Delivery O2 Flow Rate FiO2 08/29/16 07:42 97.0 107 20 100/61 99 Room Air 08/29/16 04:00 97.6 100 20 99/64 100 Room Air 08/29/16 04:00 109 08/29/16 00:00 97.6 114 20 116/60 100 Room Air 08/29/16 00:00 120 08/28/16 20:00 79 08/28/16 20:00 99.5 79 20 131/77 100 Room Air 08/28/16 16:00 99.5 82 17 111/68 100 Room Air 08/28/16 16:00 88 08/28/16 12:00 99.4 77 18 127/75 100 Room Air 08/28/16 12:00 77 Height (Feet): 5 Height (Inches): 11.00 Weight (Pounds): 110 HEENT: anicteric Respiratory/Chest: no accessory muscle use Cardiovascular: no gallop/murmur Abdomen: no organomegaly Laboratory Tests Test 08/29/16 07:25 White Blood Count 11.2 K/UL (4.8-10.8) H Red Blood Count 2.41 M/UL (4.70-6.10) L Hemoglobin 6.5 G/DL (14.2-18.0) Hematocrit 20.4 % (42.0-52.0) #L Mean Corpuscular Volume 85 FL (80-99) Mean Corpuscular Hemoglobin 27.1 PG (27.0-31.0) Mean Corpuscular Hemoglobin Concent 31.9 G/DL (32.0-36.0) L Red Cell Distribution Width 19.0 % (11.6-14.8) H Platelet Count 367 K/UL (150-450) Mean Platelet Volume 5.4 FL (6.5-10.1) L Neutrophils (%) (Auto) % (45.0-75.0) Lymphocytes (%) (Auto) % (20.0-45.0) Monocytes (%) (Auto) % (1.0-10.0) Eosinophils (%) (Auto) % (0.0-3.0) Basophils (%) (Auto) % (0.0-2.0) Differential Total Cells Counted 100 Neutrophils % (Manual) 76 % (45-75) H Lymphocytes % (Manual) 21 % (20-45) Monocytes % (Manual) 2 % (1-10) Eosinophils % (Manual) 1 % (0-3) Basophils % (Manual) 0 % (0-2) Band Neutrophils 0 % (0-8) Platelet Estimate Adequate Platelet Morphology Normal Hypochromasia 1+ Anisocytosis 1+ Prothrombin Time 10.0 SEC (9.30-11.50) Prothromb Time International Ratio 1.0 (0.9-1.1) Activated Partial Thromboplast Time 26 SEC (23-33) Sodium Level 139 mEQ/L (135-145) Potassium Level 4.0 mEQ/L (3.4-4.9) Chloride Level 101 mEQ/L (98-107) Carbon Dioxide Level 25 mEQ/L (20-30) Anion Gap 13 (5-15) Blood Urea Nitrogen 29 mg/dL (7-23) H Creatinine 0.9 mg/dL (0.7-1.2) Estimat Glomerular Filtration Rate > 60 mL/min (>60) Glucose Level 110 mg/dL (74-106) H Calcium Level 8.3 mg/dL (8.6-10.2) L Total Bilirubin < 0.2 mg/dL (0.0-1.2) Aspartate Amino Transf (AST/SGOT) 26 U/L (5-40) Alanine Aminotransferase (ALT/SGPT) 17 U/L (3-41) Alkaline Phosphatase 63 U/L (40-129) Total Protein 6.0 g/dL (6.6-8.7) L Albumin 2.4 g/dL (3.5-5.2) L Globulin 3.6 g/dL Albumin/Globulin Ratio 0.6 (1.0-2.7) L Amylase Level 69 U/L (10-110) Lipase 29 U/L (< 60) HIV (1&2) Antibody Rapid Negative (NEGATIVE) Current Medications Medications (Trade) Dose Ordered Sig/Jaime Route PRN Reason Start Time Stop Time Status Last Admin Dose Admin Acetaminophen (Tylenol) 650 mg Q4H PRN ORAL fever 08/28/16 07:15 09/27/16 07:14 Al Hydroxide/Mg Hydroxide (Mylanta II) 30 ml Q6H PRN ORAL dyspepsia 08/28/16 07:15 09/27/16 07:14 08/28/16 23:17 Amlodipine Besylate (Norvasc) 10 mg DAILY ORAL 08/28/16 09:00 09/27/16 08:59 08/28/16 08:43 Dextrose STAT PRN IV Hypoglycemia 08/28/16 07:15 09/27/16 07:14 Dextrose/Sodium Chloride (D5 0.45% NS) 1,000 ml @ 75 mls/hr [id number] IV 08/28/16 09:00 09/27/16 08:59 08/28/16 09:50 Diphenhydramine HCl (Benadryl) 25 mg Q6H PRN ORAL Itching/Pruritis 08/28/16 07:15 09/27/16 07:14 Metoprolol Succinate (Toprol XL) 50 mg DAILY ORAL 08/28/16 09:00 09/27/16 08:59 08/28/16 08:43 Morphine Sulfate (Morphine Sulfate) 2 mg EVERY 4 HOURS PRN IVP severe Pain (Pain Scale 7-10) 08/28/16 07:15 09/04/16 07:14 08/29/16 08:35 Nicotine (Nicoderm) 1 patch Q24H TDERMAL 08/29/16 10:00 09/28/16 09:59 08/29/16 09:43 Nitroglycerin (Ntg) 0.4 mg Q5M X 3 DOSES PRN SL Prn Chest Pain 08/28/16 07:15 09/27/16 07:14 Ondansetron HCl (Zofran) 4 mg Q6H PRN IVP Nausea & Vomiting 08/28/16 07:15 09/27/16 07:14 Pantoprazole (Protonix) 40 mg EVERY 12 HOURS ORAL 08/28/16 21:00 09/27/16 20:59 08/29/16 09:42 Piperacillin Sod/ Tazobactam Sod/ Sodium Chloride (Zosyn/Sodium Chloride) 110 ml @ 27.5 mls/hr Q8H IVPB 08/28/16 10:00 09/04/16 09:59 08/29/16 09:42 Polyethylene Glycol (Miralax) 17 gm HSPRN PRN ORAL Constipation 08/28/16 07:15 09/27/16 07:14 08/28/16 18:30 Tamsulosin HCl 0.4 mg 0.4 mg BEDTIME ORAL 08/28/16 21:00 09/27/16 20:59 08/28/16 20:20 Temazepam (Restoril) 15 mg HSPRN PRN ORAL Insomnia 08/28/16 07:15 09/04/16 07:14 WILLIAM MARTINEZ M.D. Aug 29, 2016 10:00
[2016-08-29] MEDS: D5 1/2NS 1,000 ML IV SCH (11:42)
[2016-08-29 12:06] LABS: OTHERS PATHOLOGIST COMMENT
--- NOTE | 2016-08-29 12:57 | Pulmonology Progress Note ---
Assessment/Plan Problems: (1) Upper GI bleed (2) Dehydration (3) Perforated gastric ulcer (4) HTN (hypertension) (5) Cocaine abuse (6) Hepatitis C Assessment/Plan CT: Nonspecific 3.5 cm fluid-filled structure adjacent to left hepatic lobe, may represent hepatic cysts or adjacent nonspecific fluid collection, etiology indeterminate. Abscess not excludable. awaiting endoscopy prbc prn no bm or vominting abx as per ID Subjective ROS Limited/Unobtainable: No Constitutional: Reports: no symptoms HEENT: Repors: no symptoms Respiratory: Reports: no symptoms Cardiovascular: Reports: no symptoms Allergies: Coded Allergies: No Known Allergies (Unverified , 08/28/16) Objective Last 24 Hour Vital Signs Date Time Temp Pulse Resp B/P Pulse Ox O2 Delivery O2 Flow Rate FiO2 08/29/16 11:21 97.5 91 20 114/74 100 Nasal Cannula 2.0 08/29/16 08:00 109 08/29/16 07:42 97.0 107 20 100/61 99 Room Air 08/29/16 04:00 97.6 100 20 99/64 100 Room Air 08/29/16 04:00 109 08/29/16 00:00 97.6 114 20 116/60 100 Room Air 08/29/16 00:00 120 08/28/16 20:00 79 08/28/16 20:00 99.5 79 20 131/77 100 Room Air 08/28/16 16:00 99.5 82 17 111/68 100 Room Air 08/28/16 16:00 88 Intake and Output 08/28/16 08/29/16 19:00 07:00 Intake Total 1455.0 ml 592.5 ml Output Total 600 ml 1000 ml Balance 855.0 ml -407.5 ml Intake Oral 670 ml IV Total 785.0 ml 592.5 ml Output Urine Total 600 ml 1000 ml # Voids 3 # Bowel Movements 3 General Appearance: cachetic HEENT: normocephalic, atraumatic Respiratory/Chest: chest wall non-tender, lungs clear Cardiovascular: normal peripheral pulses, normal rate Abdomen: normal bowel sounds Genitourinary: normal external genitalia Extremities: no cyanosis Skin: no lesions 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 Microbiology Date/Time Source Procedure Growth Status 08/28/16 04:20 Nasal Nares MRSA Culture - Final Staphylococcus Aureus - Mrsa Complete Laboratory Tests 08/29/16 07:25: White Blood Count 11.2H, Red Blood Count 2.41L, Hemoglobin 6.5#*L, Hematocrit 20.4#L, Mean Corpuscular Volume 85, Mean Corpuscular Hemoglobin 27.1, Mean Corpuscular Hemoglobin Concent 31.9L, Red Cell Distribution Width 19.0H, Platelet Count 367, Mean Platelet Volume 5.4L, Neutrophils (%) (Auto) , Lymphocytes (%) (Auto) , Monocytes (%) (Auto) , Eosinophils (%) (Auto) , Basophils (%) (Auto) , Differential Total Cells Counted 100, Neutrophils % ( Manual) 76H, Lymphocytes % (Manual) 21, Monocytes % (Manual) 2, Eosinophils % ( Manual) 1, Basophils % (Manual) 0, Band Neutrophils 0, Other Cell Type Pathologist comment, Platelet Estimate Adequate, Platelet Morphology Normal, Hypochromasia 1+, Anisocytosis 1+, Prothrombin Time 10.0, Prothromb Time International Ratio 1.0, Activated Partial Thromboplast Time 26, Sodium Level 139, Potassium Level 4.0, Chloride Level 101, Carbon Dioxide Level 25, Anion Gap 13, Blood Urea Nitrogen 29H, Creatinine 0.9, Estimat Glomerular Filtration Rate > 60, Glucose Level 110H, Calcium Level 8.3L, Total Bilirubin < 0.2, Aspartate Amino Transf (AST/SGOT) 26, Alanine Aminotransferase (ALT/SGPT) 17, Alkaline Phosphatase 63, Total Protein 6.0L, Albumin 2.4L, Globulin 3.6, Albumin /Globulin Ratio 0.6L, Amylase Level 69, Lipase 29, HIV (1&2) Antibody Rapid Negative Current Medications Medications (Trade) Dose Ordered Sig/Jaime Route PRN Reason Start Time Stop Time Status Last Admin Dose Admin Acetaminophen (Tylenol) 650 mg Q4H PRN ORAL fever 08/28/16 07:15 09/27/16 07:14 Al Hydroxide/Mg Hydroxide (Mylanta II) 30 ml Q6H PRN ORAL dyspepsia 08/28/16 07:15 09/27/16 07:14 08/28/16 23:17 Amlodipine Besylate (Norvasc) 10 mg DAILY ORAL 08/28/16 09:00 09/27/16 08:59 08/28/16 08:43 Dextrose STAT PRN IV Hypoglycemia 08/28/16 07:15 09/27/16 07:14 Dextrose/Sodium Chloride (D5 0.45% NS) 1,000 ml @ 75 mls/hr [id number] IV 08/28/16 09:00 09/27/16 08:59 08/29/16 11:42 Diphenhydramine HCl (Benadryl) 25 mg Q6H PRN ORAL Itching/Pruritis 08/28/16 07:15 09/27/16 07:14 Metoprolol Succinate (Toprol XL) 50 mg DAILY ORAL 08/28/16 09:00 09/27/16 08:59 08/28/16 08:43 Morphine Sulfate (Morphine Sulfate) 2 mg EVERY 4 HOURS PRN IVP severe Pain (Pain Scale 7-10) 08/28/16 07:15 09/04/16 07:14 08/29/16 08:35 Nicotine (Nicoderm) 1 patch Q24H TDERMAL 08/29/16 10:00 09/28/16 09:59 08/29/16 09:43 Nitroglycerin (Ntg) 0.4 mg Q5M X 3 DOSES PRN SL Prn Chest Pain 08/28/16 07:15 09/27/16 07:14 Ondansetron HCl (Zofran) 4 mg Q6H PRN IVP Nausea & Vomiting 08/28/16 07:15 09/27/16 07:14 Pantoprazole (Protonix) 40 mg EVERY 12 HOURS ORAL 08/28/16 21:00 09/27/16 20:59 08/29/16 09:42 Piperacillin Sod/ Tazobactam Sod/ Sodium Chloride (Zosyn/Sodium Chloride) 110 ml @ 27.5 mls/hr Q8H IVPB 08/28/16 10:00 09/04/16 09:59 08/29/16 09:42 Polyethylene Glycol (Miralax) 17 gm HSPRN PRN ORAL Constipation 08/28/16 07:15 09/27/16 07:14 08/28/16 18:30 Tamsulosin HCl 0.4 mg 0.4 mg BEDTIME ORAL 08/28/16 21:00 09/27/16 20:59 08/28/16 20:20 Temazepam (Restoril) 15 mg HSPRN PRN ORAL Insomnia 08/28/16 07:15 09/04/16 07:14 KASH PAUL Aug 29, 2016 12:57
--- NOTE | 2016-08-29 13:45 | Consultation ---
DATE OF CONSULTATION: SURGICAL CONSULTATION CONSULTING PHYSICIAN: Yariel Louie M.D. REFERRING PHYSICIAN: Nilesh Reddy M.D. PERTINENT HISTORY: The patient is a thin 56-year-old male, who recently underwent an exploratory laparotomy for perforated ulcer. We do not have the records to see the location of the ulcer, but it with the upper gastrointestinal. He did well at [facility] where the surgery was done, and was discharged to go home approximately a week ago. There is evidence of a upper midline scar as well as the drains on the right and left side, and he comes into the hospital now with some nausea, vomiting, abdominal distention and blood in the emesis. For that reason, we were called for evaluation for possible bleeding from the stomach. PAST MEDICAL HISTORY: As above. MEDICATIONS: See chart. ALLERGIES: None known. REVIEW OF SYSTEMS: HEENT: No headaches or tinnitus. Cardiopulmonary: No history of chest pain, shortness of breath, cough or sputum. Gastrointestinal: As above, has damion eating okay at home until he developed the nausea and vomiting. Did not have difficulties before he left the hospital a week ago in regards to his eating. Bowel movements have been normal. No blood in the stool. No melena. PHYSICAL EXAMINATION: VITAL SIGNS: Blood pressure is 130/82, temperature is 98.0 degrees, pulse is 88, and respirations are 16. GENERAL: Well-developed, thin middle-aged male, in no distress, wants to go home. Denies any abdominal pain. No further nausea or vomiting since the emergency room arrival. No evidence of any further bleeding. HEENT: The mucosa are slightly pale. Mouth, throat is clear. NECK: Supple. LUNGS: Clear. HEART: Rhythmic and regular. ABDOMEN: Soft and flat. Bowel sounds are normoactive. No masses. EXTREMITIES: Good range of motion. No edema or cyanosis. IMPRESSION: 1. Status post exploratory laparotomy for perforated ulcer most likely gastric or duodenal, unknown type at repair [facility]. 2. Hematemesis, nausea or vomiting, rule out gastric outlet obstruction from inflammatory changes and/or some degree of obstruction after the hernia surgery. PLAN: The patient is admitted, will be watched closely, there is no significant leukocytosis at this time and no evidence of abscess on the CAT scan, there is some inflammatory changes around the gallbladder in the right upper quadrant and the stomach is distended with possible insight. PLAN: The patient is admitted, will be kept NPO. Gastroenterology has been requested to evaluate with a possible upper gastrointestinal endoscopy and/or an upper gastrointestinal with small-bowel follow-through. At this point, there is no evidence of any surgical issue, however there is still significant stenosis we may have to address this surgically in near future, otherwise inflammatory process should subside. We will follow the patient with you. Yariel Louie M.D. DR: DARIAN/serenity JOB#: [id number] CC:
[2016-08-29] MEDS ORDERED: Propofol 10mg/ml 20ml IV ONE (14:00)
[2016-08-29] MEDS ORDERED: Lidocaine 1% MPF 10mg/ml 5ml ONE (14:00)
[2016-08-29] MEDS ORDERED: NS 550ML IV ONE (14:05)
[2016-08-29] MEDS ORDERED: Tubing Blood Filter IV ONE (14:05)
--- NOTE | 2016-08-29 14:34 | Pre-Procedure Note/Attestation ---
Pre-Procedure Note/Attestation Complete Prior to Procedure Planned Procedure: not applicable Indications for Procedure Pre-Operative Diagnosis: gib Attestation I attest that I discussed the nature of the procedure; its benefits; risks and complications; and alternatives (and the risks and benefits of such alternatives ), prior to the procedure, with the patient (or the patient's legal advertising representative). I attest that, if there was a reasonable possibility of needing a blood transfusion, the patient (or the patient's legal advertising representative) was given the [facility] standardized written summary, pursuant to the Deandre Sanju Blood Safety Act ([place] Health and Safety Code # 1645, as amended). I attest that I re-evaluated the patient just prior to the surgery and that there has been no change in the patient's H&P, except as documented below: GAYLE GARCIA Aug 29, 2016 14:34
--- NOTE | 2016-08-29 15:04 | Cardiology Report ---
APPROVED REPORT EKG Measurement Heart [id number] MI [id number] Normal sinus rhythm Moderate voltage criteria for LVH, may be normal variant Prolonged QT Abnormal ECG
--- NOTE | 2016-08-29 15:34 | Endoscopy Procedure Note ---
Endoscopy Procedure Note Indication for Procedure: gib Procedures Performed: EGD Operative Findings/Diagnosis: gastric ulcer Specimen: yes Pt Tolerated Procedure Well: Yes Estimated Blood Loss: none Anesthesiologist: gomez holman Anesthesia: MAC Implant(s) used?: No 50 yrs or older w/o bx or poly: Not Applicable 10yrs. F/U not recommended: Not Applicable GAYLE GARCIA Aug 29, 2016 15:34
--- NOTE | 2016-08-29 15:37 | Immediate Post-Op Evaluation ---
Immediate Post-Op Evalulation Immediate Post-Op Evalulation Procedure: egd Date of Evaluation: Aug 29, 2016 Time of Evaluation: 15:36 IV Fluids: 250 ml 0.9ns Blood Products: pRBCs Estimated Blood Loss: Negligible Blood Pressure Systolic: 126 Blood Pressure Diastolic: 80 Pulse Rate: 85 Respiratory Rate: 18 O2 Sat by Pulse Oximetry: 100 Temperature (Fahrenheit): 97.8 Pain Score (1-10): 0 Nausea: No Vomiting: No Complications none Patient Status: awake, reacts, patent Hydration Status: adequate Drug: LUIGI Gan Aug 29, 2016 15:37
--- NOTE | 2016-08-29 15:39 | 48 Hour Post Anesthesia Eval ---
Post Anesthesia Evaluation Procedure: egd Date of Evaluation: Aug 29, 2016 Blood Pressure Systolic: 119 0: 89 Pulse Rate: 90 Respiratory Rate: 18 Temperature (Fahrenheit): 97.8 O2 Sat by Pulse Oximetry: 100 Nausea: No Vomiting: No Pain Intensity: 0 Hydration Status: adequate Cardiopulmonary Status: stable Mental Status/LOC: patient returned to baseline Post-Anesthesia Complications: none Follow-up care needed: N/A LUIGI MULLINS Aug 29, 2016 15:39
[2016-08-29] MEDS ORDERED: Hydromorphone 0.5mg/0.5ml inj IVP PRN (15:45)
[2016-08-29] MEDS ORDERED: Atropine Inj 1mg/10ml Syr IV PRN (15:45)
[2016-08-29] MEDS ORDERED: Midazolam 2mg/2ml Inj IVP PRN (15:45)
[2016-08-29] MEDS ORDERED: DiphenhydrAMINE 50mg/ml Inj IVP PRN (15:45)
--- NOTE | 2016-08-29 16:30 | Procedure Note ---
DATE OF PROCEDURE: 08/29/2016 SURGEON: Yvan Carreno M.D. PROCEDURE: Upper endoscopy with biopsy. ANESTHESIOLOGIST: Joslyn Kenyon M.D. INSTRUMENT: Olympus adult flexible upper endoscope. INDICATION: Upper gastrointestinal bleeding. REASON FOR PROCEDURE: The procedure, risks, benefits, and possible consequences, including hemorrhage, aspiration, perforation and infection, and alternative treatments, were explained to the patient/legal guardian by Dr. Yvan Carreno and the patient/legal guardian understood and accepted these risks. DESCRIPTION OF PROCEDURE: After informed consent was obtained and the patient was adequately sedated, Olympus upper endoscope was advanced from mouth into the second portion of duodenum and retroflexion was performed in the stomach. The patient had evidence of an ulcer in the prepylorus region without any adherent clot or visible vessel roughly about 1 cm. Then, we advanced the scope in the duodenal bulb where there was a huge ulcer in the duodenal bulb with one visible vessel which we actually clipped. We were able to pass the scope into the second portion of duodenum. There was also a communication between this ulcer and outside, we could see air bubbling too, I am not sure where exactly this communication goes to, we tried to clip it. We used two clips so we could not close this communication. At this time, we pulled the scope back in the stomach. Random biopsy from antrum was obtained to rule out H. pylori infection. At the end, we removed the scope. SUMMARY OF FINDINGS: 1. Irregular lining at the GE junction. 2. Gastric ulcers, see above for details. 3. Duodenal ulcer with a visible vessel and communication with possibly peritoneum, status post hemostasis. RECOMMENDATIONS: 1. The patient to be kept NPO. 2. Transfuse as needed to keep hemoglobin above 7. 3. We will discuss with the surgeon regarding this finding. 4. We are going to order upper gastrointestinal with Gastrografin to see what this communication is. 5. Recommend to continue on PPI. 6. Continue on Carafate. 7. Follow biopsy results. I want to thank, Dr. Reddy for this kind referral. Jose E PackD. DR: Raul JOB#: [id number] CC: Nilesh Reddy M.D.; Fax#: [phone]
[2016-08-29] MEDS: Tamsulosin 0.4mg cap ORAL SCH (20:37)
[2016-08-30] VITALS (7 sets, daily range): BP systolic 121–149; BP diastolic 68–92
[2016-08-30] MEDS: D5 1/2NS 1,000 ML IV SCH ×2 (01:40→11:08)
[2016-08-30] MEDS: Morphine Sulfate 2mg/ml Inj IVP PRN ×4 (01:47→20:21)
[2016-08-30] MEDS: Piperacillin/Tazobactam 3.375 GM in NS 110 ML IVPB SCH ×3 (01:47→17:06)
[2016-08-30 08:35] LABS: MEAN CORPUSCULAR VOLUME 87 FL (80-99); MEAN PLATELET VOLUME 5.6 FL (6.5-10.1); PLATELET COUNT 271 K/UL (150-450); RED BLOOD COUNT 2.77 M/UL (4.70-6.10); RED CELL DISTRIBUTION WIDTH 17.9 % (11.6-14.8)
[2016-08-30 08:42] LABS: INR 0.9 (0.9-1.1); PROTHROMBIN TIME 9.6 SEC (9.30-11.50)
[2016-08-30 09:00] LABS: EOSINOPHILS % (MANUAL) 2 % (0-3); LYMPHOCYTES % (MANUAL) 17 % (20-45); NEUTROPHILS % (MANUAL) 72 % (45-75); TOTAL CELLS COUNTED 100
[2016-08-30 09:01] LABS: ANISOCYTOSIS 2+; BAND NEUTROPHILS % (MANUAL) 0 % (0-8); BASOPHILS % (MANUAL) 0 % (0-2); HYPOCHROMASIA 3+; PLATELET ESTIMATE ADEQUATE; PLATELET MORPHOLOGY NORMAL
[2016-08-30 09:15] LABS: MAGNESIUM 1.9 mg/dL (1.7-2.5); PHOSPHORUS 3.1 mg/dL (2.5-4.8)
[2016-08-30 09:18] LABS: ALANINE AMINOTRANSFERASE 14 U/L (3-41); ALBUMIN/GLOBULIN RATIO 0.7 (1.0-2.7); ANION GAP 13 (5-15); ASPARTATE AMINO TRANSFERASE 23 U/L (5-40); CALCIUM 8.2 mg/dL (8.6-10.2); CARBON DIOXIDE 24 mEQ/L (20-30); CHLORIDE 101 mEQ/L (98-107); GLOMERULAR FILTRATION RATE > 60 mL/min (>60); HEMOLYSIS 1; POTASSIUM 3.6 mEQ/L (3.4-4.9); SODIUM 138 mEQ/L (135-145); TOTAL PROTEIN 5.6 g/dL (6.6-8.7)
--- NOTE | 2016-08-30 13:40 | GI Progress Note ---
Assessment/Plan Problems: (1) Perforated gastric ulcer ICD Codes: K25.5 - Chronic or unspecified gastric ulcer with perforation SNOMED: 3809061 (2) Severe malnutrition ICD Codes: E43 - Unspecified severe protein-calorie malnutrition SNOMED: 51749680 (3) Dehydration ICD Codes: E86.0 - Dehydration SNOMED: 52736749 (4) Upper GI bleed ICD Codes: K92.2 - Gastrointestinal hemorrhage, unspecified SNOMED: 94389706 (5) Anemia in chronic illness ICD Codes: D63.8 - Anemia in other chronic diseases classified elsewhere SNOMED: 978280585 (6) Cocaine abuse ICD Codes: F14.10 - Cocaine abuse, uncomplicated SNOMED: 23815404, 438471736 (7) Hepatitis C ICD Codes: B19.20 - Unspecified viral hepatitis C without hepatic coma SNOMED: 42262530 Status: unchanged Status Narrative Discussed with Dr. Carreno. Assessment/Plan [facility] >> s/p duodenal and gastric perforation repair, umbilical hernia repair, abdominal washout, see full procedural report in physical chart. s/p EGD SUMMARY OF FINDINGS: 1. Irregular lining at the GE junction. 2. Gastric ulcers, see above for details. 3. Duodenal ulcer with a visible vessel and communication with possibly peritoneum, status post hemostasis. RECOMMENDATIONS: 1. Clear liquid diet 2. Transfuse as needed to keep hemoglobin above 7. 3. We will discuss with the surgeon regarding this finding. 4. FU UGI with Gastrografin 5. Recommend to continue on PPI. 6. Continue on Carafate. 7. Follow biopsy results. Subjective Subjective hungry Objective Last 24 Hour Vital Signs Date Time Temp Pulse Resp B/P Pulse Ox O2 Delivery O2 Flow Rate FiO2 08/30/16 12:29 96.8 68 20 149/92 98 Nasal Cannula 2.0 08/30/16 08:45 69 137/74 08/30/16 08:45 69 137/74 08/30/16 08:00 70 08/30/16 07:47 96.6 69 20 137/74 100 Nasal Cannula 3.0 08/30/16 06:29 98.7 08/30/16 04:00 98.7 67 18 125/70 100 Nasal Cannula 2.0 08/30/16 04:00 63 08/30/16 00:00 78 08/29/16 23:56 98.8 77 19 108/68 100 Nasal Cannula 2.0 08/29/16 23:00 Nasal Cannula 2.0 28 08/29/16 23:00 98 Nasal Cannula 2.0 28 08/29/16 20:00 72 08/29/16 19:58 98.2 71 20 136/76 98 Nasal Cannula 2.0 08/29/16 16:00 84 08/29/16 15:39 90 18 100 08/29/16 15:37 98.6 78 20 140/90 100 Nasal Cannula 2.0 08/29/16 15:37 85 18 100 08/29/16 15:24 89 20 126/87 100 Nasal Cannula 2.0 08/29/16 15:20 85 20 127/83 100 Nasal Cannula 2.0 08/29/16 15:15 97.0 83 20 121/83 100 Nasal Cannula 2.0 Intake and Output 08/29/16 08/30/16 19:00 07:00 Intake Total 860.0 ml 720 ml Output Total 600 ml 500 ml Balance 260.0 ml 220 ml Intake Oral 200 ml IV Total 610.0 ml 520 ml Blood Product 250 ml Output Urine Total 600 ml 500 ml # Voids 1 Laboratory Tests Test 08/30/16 07:15 White Blood Count 7.0 K/UL (4.8-10.8) Red Blood Count 2.77 M/UL (4.70-6.10) L Hemoglobin 7.8 G/DL (14.2-18.0) L Hematocrit 24.2 % (42.0-52.0) L Mean Corpuscular Volume 87 FL (80-99) Mean Corpuscular Hemoglobin 28.0 PG (27.0-31.0) Mean Corpuscular Hemoglobin Concent 32.0 G/DL (32.0-36.0) Red Cell Distribution Width 17.9 % (11.6-14.8) H Platelet Count 271 K/UL (150-450) Mean Platelet Volume 5.6 FL (6.5-10.1) L Neutrophils (%) (Auto) % (45.0-75.0) Lymphocytes (%) (Auto) % (20.0-45.0) Monocytes (%) (Auto) % (1.0-10.0) Eosinophils (%) (Auto) % (0.0-3.0) Basophils (%) (Auto) % (0.0-2.0) Differential Total Cells Counted 100 Neutrophils % (Manual) 72 % (45-75) Lymphocytes % (Manual) 17 % (20-45) L Monocytes % (Manual) 9 % (1-10) Eosinophils % (Manual) 2 % (0-3) Basophils % (Manual) 0 % (0-2) Band Neutrophils 0 % (0-8) Platelet Estimate Adequate Platelet Morphology Normal Hypochromasia 3+ Anisocytosis 2+ Prothrombin Time 9.6 SEC (9.30-11.50) Prothromb Time International Ratio 0.9 (0.9-1.1) Activated Partial Thromboplast Time 26 SEC (23-33) Sodium Level 138 mEQ/L (135-145) Potassium Level 3.6 mEQ/L (3.4-4.9) Chloride Level 101 mEQ/L (98-107) Carbon Dioxide Level 24 mEQ/L (20-30) Anion Gap 13 (5-15) Blood Urea Nitrogen 24 mg/dL (7-23) H Creatinine 1.0 mg/dL (0.7-1.2) Estimat Glomerular Filtration Rate > 60 mL/min (>60) Glucose Level 89 mg/dL (74-106) Calcium Level 8.2 mg/dL (8.6-10.2) L Phosphorus Level 3.1 mg/dL (2.5-4.8) Magnesium Level 1.9 mg/dL (1.7-2.5) Total Bilirubin 0.3 mg/dL (0.0-1.2) Aspartate Amino Transf (AST/SGOT) 23 U/L (5-40) Alanine Aminotransferase (ALT/SGPT) 14 U/L (3-41) Alkaline Phosphatase 60 U/L (40-129) Total Protein 5.6 g/dL (6.6-8.7) L Albumin 2.4 g/dL (3.5-5.2) L Globulin 3.2 g/dL Albumin/Globulin Ratio 0.7 (1.0-2.7) L Height (Feet): 5 Height (Inches): 11.00 Weight (Pounds): 110 General Appearance: no apparent distress, alert, thin Cardiovascular: normal rate Respiratory/Chest: normal breath sounds, no respiratory distress Abdominal Exam: normal bowel sounds, non tender, soft Extremities: normal range of motion Ning López N.P. Aug 30, 2016 13:40
--- NOTE | 2016-08-30 15:10 | Pulmonology Progress Note ---
Assessment/Plan Problems: (1) Upper GI bleed (2) Dehydration (3) Perforated gastric ulcer (4) HTN (hypertension) (5) Cocaine abuse (6) Hepatitis C Assessment/Plan CT: Nonspecific 3.5 cm fluid-filled structure adjacent to left hepatic lobe, may represent hepatic cysts or adjacent nonspecific fluid collection, etiology indeterminate. Abscess not excludable. awaiting reports of surgery from [facility] prbc prn no bm or vominting abx as per ID Subjective ROS Limited/Unobtainable: No Constitutional: Reports: no symptoms HEENT: Repors: no symptoms Respiratory: Reports: no symptoms Allergies: Coded Allergies: No Known Allergies (Unverified , 08/28/16) Objective Last 24 Hour Vital Signs Date Time Temp Pulse Resp B/P Pulse Ox O2 Delivery O2 Flow Rate FiO2 08/30/16 12:29 96.8 68 20 149/92 98 Nasal Cannula 2.0 08/30/16 12:00 60 08/30/16 08:45 69 137/74 08/30/16 08:45 69 137/74 08/30/16 08:00 70 08/30/16 07:47 96.6 69 20 137/74 100 Nasal Cannula 3.0 08/30/16 06:29 98.7 08/30/16 04:00 98.7 67 18 125/70 100 Nasal Cannula 2.0 08/30/16 04:00 63 08/30/16 00:00 78 08/29/16 23:56 98.8 77 19 108/68 100 Nasal Cannula 2.0 08/29/16 23:00 Nasal Cannula 2.0 28 08/29/16 23:00 98 Nasal Cannula 2.0 28 08/29/16 20:00 72 08/29/16 19:58 98.2 71 20 136/76 98 Nasal Cannula 2.0 08/29/16 16:00 84 08/29/16 15:39 90 18 100 08/29/16 15:37 98.6 78 20 140/90 100 Nasal Cannula 2.0 08/29/16 15:37 85 18 100 08/29/16 15:24 89 20 126/87 100 Nasal Cannula 2.0 08/29/16 15:20 85 20 127/83 100 Nasal Cannula 2.0 08/29/16 15:15 97.0 83 20 121/83 100 Nasal Cannula 2.0 Intake and Output 08/29/16 08/30/16 19:00 07:00 Intake Total 860.0 ml 720 ml Output Total 600 ml 500 ml Balance 260.0 ml 220 ml Intake Oral 200 ml IV Total 610.0 ml 520 ml Blood Product 250 ml Output Urine Total 600 ml 500 ml # Voids 1 General Appearance: WD/WN HEENT: normocephalic, atraumatic Respiratory/Chest: chest wall non-tender, lungs clear Cardiovascular: normal peripheral pulses, normal rate Abdomen: normal bowel sounds, soft, non tender Extremities: no cyanosis Skin: no rash Neurologic/Psychiatric: barback II-XII grossly normal Microbiology Date/Time Source Procedure Growth Status 08/28/16 17:40 Blood Blood Culture - Preliminary NO GROWTH AFTER 24 HOURS Resulted 08/28/16 17:30 Blood Blood Culture - Preliminary NO GROWTH AFTER 24 HOURS Resulted 08/28/16 04:20 Nasal Nares MRSA Culture - Final Staphylococcus Aureus - Mrsa Complete 08/28/16 04:20 Rectum VRE Culture - Final Enterococcus Faecium - Vre Complete Laboratory Tests 08/30/16 07:15: White Blood Count 7.0, Red Blood Count 2.77L, Hemoglobin 7.8L, Hematocrit 24.2L , Mean Corpuscular Volume 87, Mean Corpuscular Hemoglobin 28.0, Mean Corpuscular Hemoglobin Concent 32.0, Red Cell Distribution Width 17.9H, Platelet Count 271, Mean Platelet Volume 5.6L, Neutrophils (%) (Auto) , Lymphocytes (%) (Auto) , Monocytes (%) (Auto) , Eosinophils (%) (Auto) , Basophils (%) (Auto) , Differential Total Cells Counted 100, Neutrophils % ( Manual) 72, Lymphocytes % (Manual) 17L, Monocytes % (Manual) 9, Eosinophils % ( Manual) 2, Basophils % (Manual) 0, Band Neutrophils 0, Platelet Estimate Adequate, Platelet Morphology Normal, Hypochromasia 3+, Anisocytosis 2+, Prothrombin Time 9.6, Prothromb Time International Ratio 0.9, Activated Partial Thromboplast Time 26, Sodium Level 138, Potassium Level 3.6, Chloride Level 101 , Carbon Dioxide Level 24, Anion Gap 13, Blood Urea Nitrogen 24H, Creatinine 1.0 , Estimat Glomerular Filtration Rate > 60, Glucose Level 89, Calcium Level 8.2L , Phosphorus Level 3.1, Magnesium Level 1.9, Total Bilirubin 0.3, Aspartate Amino Transf (AST/SGOT) 23, Alanine Aminotransferase (ALT/SGPT) 14, Alkaline Phosphatase 60, Total Protein 5.6L, Albumin 2.4L, Globulin 3.2, Albumin/ Globulin Ratio 0.7L Current Medications Medications (Trade) Dose Ordered Sig/Jaime Route PRN Reason Start Time Stop Time Status Last Admin Dose Admin Acetaminophen (Tylenol) 650 mg Q4H PRN ORAL fever 08/28/16 07:15 09/27/16 07:14 Al Hydroxide/Mg Hydroxide (Mylanta II) 30 ml Q6H PRN ORAL dyspepsia 08/28/16 07:15 09/27/16 07:14 08/28/16 23:17 Amlodipine Besylate (Norvasc) 10 mg DAILY ORAL 08/28/16 09:00 09/27/16 08:59 08/30/16 08:45 Dextrose STAT PRN IV Hypoglycemia 08/28/16 07:15 09/27/16 07:14 Dextrose/Sodium Chloride (D5 0.45% NS) 1,000 ml @ 75 mls/hr [id number] IV 08/28/16 09:00 09/27/16 08:59 08/30/16 11:08 Diphenhydramine HCl (Benadryl) 25 mg Q6H PRN ORAL Itching/Pruritis 08/28/16 07:15 09/27/16 07:14 Metoprolol Succinate (Toprol XL) 50 mg DAILY ORAL 08/28/16 09:00 09/27/16 08:59 08/30/16 08:45 Morphine Sulfate (Morphine Sulfate) 2 mg EVERY 4 HOURS PRN IVP severe Pain (Pain Scale 7-10) 08/28/16 07:15 09/04/16 07:14 08/30/16 11:08 Nicotine (Nicoderm) 1 patch Q24H TDERMAL 08/29/16 10:00 09/28/16 09:59 08/30/16 11:09 Nitroglycerin (Ntg) 0.4 mg Q5M X 3 DOSES PRN SL Prn Chest Pain 08/28/16 07:15 09/27/16 07:14 Ondansetron HCl (Zofran) 4 mg Q6H PRN IVP Nausea & Vomiting 08/28/16 07:15 09/27/16 07:14 Pantoprazole (Protonix) 40 mg EVERY 12 HOURS ORAL 08/28/16 21:00 09/27/16 20:59 08/30/16 08:45 Piperacillin Sod/ Tazobactam Sod/ Sodium Chloride (Zosyn/Sodium Chloride) 110 ml @ 27.5 mls/hr Q8H IVPB 08/28/16 10:00 09/04/16 09:59 08/30/16 11:09 Polyethylene Glycol (Miralax) 17 gm HSPRN PRN ORAL Constipation 08/28/16 07:15 09/27/16 07:14 08/28/16 18:30 Tamsulosin HCl 0.4 mg 0.4 mg BEDTIME ORAL 08/28/16 21:00 09/27/16 20:59 08/29/16 20:37 Temazepam (Restoril) 15 mg HSPRN PRN ORAL Insomnia 08/28/16 07:15 09/04/16 07:14 08/29/16 20:37 KASH PAUL Aug 30, 2016 15:10
[2016-08-30] MEDS: Tamsulosin 0.4mg cap ORAL SCH (20:22)
[2016-08-30] MEDS ORDERED: Sucralfate 1gm tab ORAL SCH (21:00)
--- NOTE | 2016-08-30 21:27 | Infectious Diseases Prog Note ---
Assessment/Plan Assessment/Plan ASSESSMENT: 56 y/o male with: // Pneumobilia - post-op doubt cholangitis vs cholecystitis - LFTs WNL - CT: Diffuse mural thickening/edema of the gallbladder may be secondary to adjacent pathology, though intrinsic inflammation not excluded. // Nonspecific 3.5 cm fluid-filled structure adjacent to left hepatic lobe, may represent hepatic cysts or adjacent nonspecific fluid collection, etiology indeterminate. Abscess not excludable. // h/o HCV - LFTs WNL // Leukocytosis ,SP // HIV: neg // UGIB / hematemesis - GI following, EGD: and DU - SP recent perforated PUD, hernia repair @ [facility] // Acute blood loss anemia // Gastric distension r/o gastric outlet obstruction // Thrombocytosis // Cachexia // h/o polysubstance abuse // [place] resident // NKDA // Full Code PLAN: - continue empiric zosyn d# 3 - monitor blood cultures, - monitor H&H, transfuse prn - monitor CBC, temperatures - monitor CMP - GI and GenSx following Subjective Constitutional: Denies: anorexia, chills, drenching sweats, fatigue, fever, no symptoms, other Allergies: Coded Allergies: No Known Allergies (Unverified , 08/28/16) Subjective EGD today Objective Vital Signs Last 24 Hour Vital Signs Date Time Temp Pulse Resp B/P Pulse Ox O2 Delivery O2 Flow Rate FiO2 08/30/16 20:00 98.1 62 20 142/69 100 Nasal Cannula 2.0 08/30/16 16:40 98 Nasal Cannula 2.0 28 08/30/16 16:40 Nasal Cannula 2.0 28 08/30/16 16:00 73 08/30/16 15:17 96.7 78 20 121/68 100 Nasal Cannula 2.0 08/30/16 12:29 96.8 68 20 149/92 98 Nasal Cannula 2.0 08/30/16 12:00 60 08/30/16 08:45 69 137/74 08/30/16 08:45 69 137/74 08/30/16 08:00 70 08/30/16 07:47 96.6 69 20 137/74 100 Nasal Cannula 3.0 08/30/16 06:29 98.7 08/30/16 04:00 98.7 67 18 125/70 100 Nasal Cannula 2.0 08/30/16 04:00 63 08/30/16 00:00 78 08/29/16 23:56 98.8 77 19 108/68 100 Nasal Cannula 2.0 08/29/16 23:00 Nasal Cannula 2.0 28 08/29/16 23:00 98 Nasal Cannula 2.0 28 Height (Feet): 5 Height (Inches): 11.00 Weight (Pounds): 110 HEENT: mucous membranes moist Respiratory/Chest: normal breath sounds Cardiovascular: regularly irregular Abdomen: no organomegaly Microbiology Date/Time Source Procedure Growth Status 08/28/16 17:40 Blood Blood Culture - Preliminary NO GROWTH AFTER 24 HOURS Resulted 08/28/16 17:30 Blood Blood Culture - Preliminary NO GROWTH AFTER 24 HOURS Resulted 08/28/16 04:20 Nasal Nares MRSA Culture - Final Staphylococcus Aureus - Mrsa Complete 08/28/16 04:20 Rectum VRE Culture - Final Enterococcus Faecium - Vre Complete Laboratory Tests Test 08/30/16 07:15 White Blood Count 7.0 K/UL (4.8-10.8) Red Blood Count 2.77 M/UL (4.70-6.10) L Hemoglobin 7.8 G/DL (14.2-18.0) L Hematocrit 24.2 % (42.0-52.0) L Mean Corpuscular Volume 87 FL (80-99) Mean Corpuscular Hemoglobin 28.0 PG (27.0-31.0) Mean Corpuscular Hemoglobin Concent 32.0 G/DL (32.0-36.0) Red Cell Distribution Width 17.9 % (11.6-14.8) H Platelet Count 271 K/UL (150-450) Mean Platelet Volume 5.6 FL (6.5-10.1) L Neutrophils (%) (Auto) % (45.0-75.0) Lymphocytes (%) (Auto) % (20.0-45.0) Monocytes (%) (Auto) % (1.0-10.0) Eosinophils (%) (Auto) % (0.0-3.0) Basophils (%) (Auto) % (0.0-2.0) Differential Total Cells Counted 100 Neutrophils % (Manual) 72 % (45-75) Lymphocytes % (Manual) 17 % (20-45) L Monocytes % (Manual) 9 % (1-10) Eosinophils % (Manual) 2 % (0-3) Basophils % (Manual) 0 % (0-2) Band Neutrophils 0 % (0-8) Platelet Estimate Adequate Platelet Morphology Normal Hypochromasia 3+ Anisocytosis 2+ Prothrombin Time 9.6 SEC (9.30-11.50) Prothromb Time International Ratio 0.9 (0.9-1.1) Activated Partial Thromboplast Time 26 SEC (23-33) Sodium Level 138 mEQ/L (135-145) Potassium Level 3.6 mEQ/L (3.4-4.9) Chloride Level 101 mEQ/L (98-107) Carbon Dioxide Level 24 mEQ/L (20-30) Anion Gap 13 (5-15) Blood Urea Nitrogen 24 mg/dL (7-23) H Creatinine 1.0 mg/dL (0.7-1.2) Estimat Glomerular Filtration Rate > 60 mL/min (>60) Glucose Level 89 mg/dL (74-106) Calcium Level 8.2 mg/dL (8.6-10.2) L Phosphorus Level 3.1 mg/dL (2.5-4.8) Magnesium Level 1.9 mg/dL (1.7-2.5) Total Bilirubin 0.3 mg/dL (0.0-1.2) Aspartate Amino Transf (AST/SGOT) 23 U/L (5-40) Alanine Aminotransferase (ALT/SGPT) 14 U/L (3-41) Alkaline Phosphatase 60 U/L (40-129) Total Protein 5.6 g/dL (6.6-8.7) L Albumin 2.4 g/dL (3.5-5.2) L Globulin 3.2 g/dL Albumin/Globulin Ratio 0.7 (1.0-2.7) L Current Medications Medications (Trade) Dose Ordered Sig/Jaime Route PRN Reason Start Time Stop Time Status Last Admin Dose Admin Acetaminophen (Tylenol) 650 mg Q4H PRN ORAL fever 08/28/16 07:15 09/27/16 07:14 Al Hydroxide/Mg Hydroxide (Mylanta II) 30 ml Q6H PRN ORAL dyspepsia 08/28/16 07:15 09/27/16 07:14 08/28/16 23:17 Amlodipine Besylate (Norvasc) 10 mg DAILY ORAL 08/28/16 09:00 09/27/16 08:59 08/30/16 08:45 Dextrose STAT PRN IV Hypoglycemia 08/28/16 07:15 09/27/16 07:14 Dextrose/Sodium Chloride (D5 0.45% NS) 1,000 ml @ 75 mls/hr [id number] IV 08/28/16 09:00 09/27/16 08:59 08/30/16 11:08 Diphenhydramine HCl (Benadryl) 25 mg Q6H PRN ORAL Itching/Pruritis 08/28/16 07:15 09/27/16 07:14 Metoprolol Succinate (Toprol XL) 50 mg DAILY ORAL 08/28/16 09:00 09/27/16 08:59 08/30/16 08:45 Morphine Sulfate (Morphine Sulfate) 2 mg EVERY 4 HOURS PRN IVP severe Pain (Pain Scale 7-10) 08/28/16 07:15 09/04/16 07:14 08/30/16 20:21 Nicotine (Nicoderm) 1 patch Q24H TDERMAL 08/29/16 10:00 09/28/16 09:59 08/30/16 11:09 Nitroglycerin (Ntg) 0.4 mg Q5M X 3 DOSES PRN SL Prn Chest Pain 08/28/16 07:15 09/27/16 07:14 Ondansetron HCl (Zofran) 4 mg Q6H PRN IVP Nausea & Vomiting 08/28/16 07:15 09/27/16 07:14 Pantoprazole (Protonix) 40 mg EVERY 12 HOURS ORAL 08/28/16 21:00 09/27/16 20:59 08/30/16 20:22 Piperacillin Sod/ Tazobactam Sod/ Sodium Chloride (Zosyn/Sodium Chloride) 110 ml @ 27.5 mls/hr Q8H IVPB 08/28/16 10:00 09/04/16 09:59 08/30/16 17:06 Polyethylene Glycol (Miralax) 17 gm HSPRN PRN ORAL Constipation 08/28/16 07:15 09/27/16 07:14 08/28/16 18:30 Sucralfate (Carafate) 1 gm FOUR TIMES A DAY ORAL 08/30/16 21:00 09/29/16 20:59 08/30/16 20:22 Tamsulosin HCl 0.4 mg 0.4 mg BEDTIME ORAL 08/28/16 21:00 09/27/16 20:59 08/30/16 20:22 Temazepam (Restoril) 15 mg HSPRN PRN ORAL Insomnia 08/28/16 07:15 09/04/16 07:14 08/29/16 20:37 WILLIAM MARTINEZ M.D. Aug 30, 2016 21:27
[2016-08-31] VITALS: BP 113/63
[2016-08-31] MEDS: D5 1/2NS 1,000 ML IV SCH (03:00)
[2016-08-31] MEDS: Piperacillin/Tazobactam 3.375 GM in NS 110 ML IVPB SCH ×3 (03:00→18:00)
[2016-08-31 04:00] VITALS: BP 132/69
[2016-08-31] MEDS ORDERED: D5 1/2NS 1,000 ML IV SCH (06:45)
[2016-08-31] MEDS ORDERED: Nitroglycerin Subl 0.4mg tab (Bottle Of 25) SL PRN (06:45)
[2016-08-31] MEDS ORDERED: Miralax 17gm pkt ORAL PRN (07:15)
[2016-08-31] MEDS ORDERED: Mylanta II UD 30ml ORAL PRN (07:15)
--- NOTE | 2016-08-31 07:24 | Pulmonology Progress Note ---
Subjective Allergies: Coded Allergies: No Known Allergies (Unverified , 08/28/16) Objective Last 24 Hour Vital Signs Date Time Temp Pulse Resp B/P Pulse Ox O2 Delivery O2 Flow Rate FiO2 08/31/16 04:00 97.0 83 20 132/69 100 Nasal Cannula 2.0 08/31/16 00:00 98.0 76 20 113/63 100 Nasal Cannula 2.0 08/31/16 00:00 70 08/30/16 20:00 71 08/30/16 20:00 98.1 62 20 142/69 100 Nasal Cannula 2.0 08/30/16 16:40 98 Nasal Cannula 2.0 28 08/30/16 16:40 Nasal Cannula 2.0 28 08/30/16 16:00 73 08/30/16 15:17 96.7 78 20 121/68 100 Nasal Cannula 2.0 08/30/16 12:29 96.8 68 20 149/92 98 Nasal Cannula 2.0 08/30/16 12:00 60 08/30/16 08:45 69 137/74 08/30/16 08:45 69 137/74 08/30/16 08:00 70 08/30/16 07:47 96.6 69 20 137/74 100 Nasal Cannula 3.0 Intake and Output 08/30/16 08/31/16 19:00 07:00 Intake Total 2111.3 ml 1487.5 ml Output Total 600 ml 300 ml Balance 1511.3 ml 1187.5 ml Intake Oral 1350 ml 600 ml IV Total 761.3 ml 637.5 ml Blood Product 250 ml Output Urine Total 600 ml 300 ml # Voids 1 1 # Bowel Movements 4 1 Microbiology Date/Time Source Procedure Growth Status 08/28/16 17:40 Blood Blood Culture - Preliminary NO GROWTH AFTER 48 HOURS Resulted 08/28/16 17:30 Blood Blood Culture - Preliminary NO GROWTH AFTER 48 HOURS Resulted Current Medications Medications (Trade) Dose Ordered Sig/Jaime Route PRN Reason Start Time Stop Time Status Last Admin Dose Admin Acetaminophen (Tylenol) 650 mg Q4H PRN ORAL fever 08/31/16 07:15 09/30/16 07:14 Al Hydroxide/Mg Hydroxide (Mylanta II) 30 ml Q6H PRN ORAL dyspepsia 08/31/16 07:15 09/30/16 07:14 Amlodipine Besylate (Norvasc) 10 mg DAILY ORAL 08/31/16 09:00 09/30/16 08:59 Dextrose (Dextrose 50%) STAT PRN IV Hypoglycemia 08/31/16 07:15 09/30/16 07:14 Dextrose/Sodium Chloride 1,000 ml @ 75 mls/hr [id number] IV 08/31/16 06:45 09/30/16 06:44 Diphenhydramine HCl (Benadryl) 25 mg Q6H PRN ORAL Itching/Pruritis 08/31/16 07:15 09/30/16 07:14 Metoprolol Succinate (Toprol XL) 50 mg DAILY ORAL 08/31/16 09:00 09/30/16 08:59 Morphine Sulfate (Morphine Sulfate) 2 mg EVERY 4 HOURS PRN IVP severe Pain (Pain Scale 7-10) 08/31/16 09:00 09/07/16 08:59 Nicotine (Nicoderm) 1 patch Q24H TDERMAL 08/31/16 10:00 09/30/16 09:59 Nitroglycerin (Ntg) 0.4 mg Q5M X 3 DOSES PRN SL Prn Chest Pain 08/31/16 06:45 09/30/16 06:44 Ondansetron HCl (Zofran) 4 mg Q6H PRN IVP Nausea & Vomiting 08/31/16 07:15 09/30/16 07:14 Pantoprazole (Protonix) 40 mg EVERY 12 HOURS ORAL 08/31/16 09:00 09/30/16 08:59 Piperacillin Sod/ Tazobactam Sod/ Sodium Chloride (Zosyn/Sodium Chloride) 110 ml @ 27.5 mls/hr Q8H IVPB 08/31/16 10:00 09/04/16 09:59 Polyethylene Glycol (Miralax) 17 gm HSPRN PRN ORAL Constipation 08/31/16 07:15 09/30/16 07:14 Sucralfate (Carafate) 1 gm FOUR TIMES A DAY ORAL 08/31/16 09:00 09/30/16 08:59 Tamsulosin HCl (Flomax) 0.4 mg BEDTIME ORAL 08/31/16 21:00 09/30/16 20:59 Temazepam (Restoril) 15 mg HSPRN PRN ORAL Insomnia 08/31/16 07:15 09/07/16 07:14 Christian ([facility])Elizabeth NP Aug 31, 2016 07:24
[2016-08-31 08:08] VITALS: BP 131/84
--- NOTE | 2016-08-31 08:24 | Diagnostic Imaging Report ---
Indication: Gastric ulcer perforation, and expected pneumobilia on recent CT scan, evaluation for leak and possible duodenal biliary fistula Technique: Patient ingested horizontal contrast. Rapid sequence spot images, static spot images, and overhead images obtained. Total fluoroscopy time 8.7 minutes. Total dose area product 423 mGycm2 Comparison: None. Reference made to CT abdomen pelvis 08/28/2016 Findings: Recovery Coordinator image demonstrates recent clips in the region of the duodenal bulb. Linear metallic densities project immediately inferiorly, and are consistent with prior surgery in this area. Bowel gas pattern is unremarkable. Although not visible on the boatswain mate images, subsequent overhead images demonstrate pneumobilia as described on recent CT scan. The esophagus demonstrates grossly normal motility. The stomach demonstrates normal contour and distensibility. No active leak from the duodenum was observed. However, later images demonstrate a linear contrast collection medial is posterior to the duodenal bulb and just medial to the second portion of the duodenum. This presumably represents the common bile duct. However, despite careful observation in multiple obliquities, definite fistulous connection between it and the duodenal bulb could not be visualized. The proximal small bowel appears unremarkable. Impression: Contrast opacifies the common bile duct.. However, the entry into the common bile duct was not observed fluoroscopically. Therefore, it is uncertain whether this is due to a fistula between the duodenum and the common bile duct, versus retrograde entry via an incompetent sphincter of Oddi. Suspect the latter although the former is not completely excludable Other findings as noted Procedure and findings discussed by phone with Dr. Carreno previously
[2016-08-31] MEDS: Sucralfate 1gm tab ORAL SCH ×3 (08:38→17:29)
[2016-08-31] MEDS ORDERED: Morphine Sulfate 2mg/ml Inj IVP PRN (09:00)
--- NOTE | 2016-08-31 09:00 | Infectious Diseases Prog Note ---
Assessment/Plan Assessment/Plan ASSESSMENT: 56 y/o male with: // Pneumobilia - post-op doubt cholangitis vs cholecystitis UGI : Contrast opacifies the common bile duct - LFTs WNL - CT: Diffuse mural thickening/edema of the gallbladder may be secondary to adjacent pathology, though intrinsic inflammation not excluded. // Nonspecific 3.5 cm fluid-filled structure adjacent to left hepatic lobe, may represent hepatic cysts or adjacent nonspecific fluid collection, etiology indeterminate. Abscess not excludable. // h/o HCV - LFTs WNL // Leukocytosis ,SP // HIV: neg // UGIB / hematemesis - GI following, EGD: and DU - SP recent perforated PUD, hernia repair @ [facility] // Acute blood loss anemia // Gastric distension r/o gastric outlet obstruction // Thrombocytosis // Cachexia // h/o polysubstance abuse // [place] resident // NKDA // Full Code PLAN: - continue empiric zosyn d# 4 / 7 , upon DC will change to Augmentin to complete the course - monitor blood cultures, - monitor H&H, transfuse prn - monitor CBC, temperatures - monitor CMP - GI and GenSx following Subjective Allergies: Coded Allergies: No Known Allergies (Unverified , 08/28/16) Subjective afebrile today Objective Vital Signs Last 24 Hour Vital Signs Date Time Temp Pulse Resp B/P Pulse Ox O2 Delivery O2 Flow Rate FiO2 08/31/16 08:38 68 131/84 08/31/16 08:38 68 131/84 08/31/16 08:08 98.4 68 20 131/84 100 Room Air 08/31/16 04:00 97.0 83 20 132/69 100 Nasal Cannula 2.0 08/31/16 00:00 98.0 76 20 113/63 100 Nasal Cannula 2.0 08/31/16 00:00 70 08/30/16 20:00 71 08/30/16 20:00 98.1 62 20 142/69 100 Nasal Cannula 2.0 08/30/16 16:40 98 Nasal Cannula 2.0 28 08/30/16 16:40 Nasal Cannula 2.0 28 08/30/16 16:00 73 08/30/16 15:17 96.7 78 20 121/68 100 Nasal Cannula 2.0 08/30/16 12:29 96.8 68 20 149/92 98 Nasal Cannula 2.0 08/30/16 12:00 60 Height (Feet): 5 Height (Inches): 11.00 Weight (Pounds): 110 HEENT: mucous membranes moist Respiratory/Chest: normal breath sounds Cardiovascular: regular rhythm Abdomen: no organomegaly Microbiology Date/Time Source Procedure Growth Status 08/28/16 17:40 Blood Blood Culture - Preliminary NO GROWTH AFTER 48 HOURS Resulted 08/28/16 17:30 Blood Blood Culture - Preliminary NO GROWTH AFTER 48 HOURS Resulted Current Medications Medications (Trade) Dose Ordered Sig/Jaime Route PRN Reason Start Time Stop Time Status Last Admin Dose Admin Acetaminophen (Tylenol) 650 mg Q4H PRN ORAL fever 08/31/16 07:15 09/30/16 07:14 Al Hydroxide/Mg Hydroxide (Mylanta II) 30 ml Q6H PRN ORAL dyspepsia 08/31/16 07:15 09/30/16 07:14 Amlodipine Besylate (Norvasc) 10 mg DAILY ORAL 08/31/16 09:00 09/30/16 08:59 08/31/16 08:38 Dextrose (Dextrose 50%) STAT PRN IV Hypoglycemia 08/31/16 07:15 09/30/16 07:14 Dextrose/Sodium Chloride 1,000 ml @ 75 mls/hr [id number] IV 08/31/16 06:45 09/30/16 06:44 Diphenhydramine HCl (Benadryl) 25 mg Q6H PRN ORAL Itching/Pruritis 08/31/16 07:15 09/30/16 07:14 Metoprolol Succinate (Toprol XL) 50 mg DAILY ORAL 08/31/16 09:00 09/30/16 08:59 08/31/16 08:38 Morphine Sulfate (Morphine Sulfate) 2 mg EVERY 4 HOURS PRN IVP severe Pain (Pain Scale 7-10) 08/31/16 09:00 09/07/16 08:59 Nicotine (Nicoderm) 1 patch Q24H TDERMAL 08/31/16 10:00 09/30/16 09:59 Nitroglycerin (Ntg) 0.4 mg Q5M X 3 DOSES PRN SL Prn Chest Pain 08/31/16 06:45 09/30/16 06:44 Ondansetron HCl (Zofran) 4 mg Q6H PRN IVP Nausea & Vomiting 08/31/16 07:15 09/30/16 07:14 Pantoprazole (Protonix) 40 mg EVERY 12 HOURS ORAL 08/31/16 09:00 09/30/16 08:59 08/31/16 08:38 Piperacillin Sod/ Tazobactam Sod/ Sodium Chloride (Zosyn/Sodium Chloride) 110 ml @ 27.5 mls/hr Q8H IVPB 08/31/16 10:00 09/04/16 09:59 Polyethylene Glycol (Miralax) 17 gm HSPRN PRN ORAL Constipation 08/31/16 07:15 09/30/16 07:14 Sucralfate (Carafate) 1 gm FOUR TIMES A DAY ORAL 08/31/16 09:00 09/30/16 08:59 08/31/16 08:38 Tamsulosin HCl (Flomax) 0.4 mg BEDTIME ORAL 08/31/16 21:00 09/30/16 20:59 Temazepam (Restoril) 15 mg HSPRN PRN ORAL Insomnia 08/31/16 07:15 09/07/16 07:14 WILLIAM MARTINEZ M.D. Aug 31, 2016 09:00
[2016-08-31 09:38] LABS: MEAN CORPUSCULAR HEMOGLOBIN 28.5 PG (27.0-31.0); MEAN CORPUSCULAR HGB CONC 32.4 G/DL (32.0-36.0); MEAN CORPUSCULAR VOLUME 88 FL (80-99); MEAN PLATELET VOLUME 5.2 FL (6.5-10.1); PLATELET COUNT 317 K/UL (150-450); RED BLOOD COUNT 2.66 M/UL (4.70-6.10); RED CELL DISTRIBUTION WIDTH 17.4 % (11.6-14.8); WHITE BLOOD COUNT 7.3 K/UL (4.8-10.8)
[2016-08-31 09:51] LABS: MAGNESIUM 1.7 mg/dL (1.7-2.5); PHOSPHORUS 2.5 mg/dL (2.5-4.8)
[2016-08-31 09:52] LABS: ALANINE AMINOTRANSFERASE 13 U/L (3-41); ALBUMIN/GLOBULIN RATIO 0.7 (1.0-2.7); ANION GAP 12 (5-15); ASPARTATE AMINO TRANSFERASE 22 U/L (5-40); CALCIUM 8.1 mg/dL (8.6-10.2); CARBON DIOXIDE 24 mEQ/L (20-30); CHLORIDE 101 mEQ/L (98-107); CREATININE 0.8 mg/dL (0.7-1.2); GLOMERULAR FILTRATION RATE > 60 mL/min (>60); HEMOLYSIS 2; POTASSIUM 3.3 mEQ/L (3.4-4.9); SODIUM 137 mEQ/L (135-145); TOTAL PROTEIN 5.7 g/dL (6.6-8.7)
[2016-08-31 10:11] LABS: ANISOCYTOSIS 1+; BAND NEUTROPHILS % (MANUAL) 0 % (0-8); BASOPHILS % (MANUAL) 0 % (0-2); EOSINOPHILS % (MANUAL) 1 % (0-3); HYPOCHROMASIA 1+; LYMPHOCYTES % (MANUAL) 10 % (20-45); NEUTROPHILS % (MANUAL) 84 % (45-75); PLATELET ESTIMATE ADEQUATE; PLATELET MORPHOLOGY NORMAL; TOTAL CELLS COUNTED 100
[2016-08-31 11:41] VITALS: BP 118/73
--- NOTE | 2016-08-31 12:56 | Pulmonology Progress Note ---
Assessment/Plan Assessment/Plan ASSESSMENT upper GI bleeding s/p upper endoscopy with biopsy hastric ulcer duopdenal ucler with a visible vessel and communication with possibly peritoneum, status post hemostasis. anemia of acute blood loss cachexia R knee st 2 decub ulcer POA middle back decub ulcer stage 2 POA s/p recent perforated ulcer dehydration HTN cocaine abuse Hep C PLAN OF CARE MS floor tolerated diet HH at baseline, still below 8 will give 1 u PRBC upper GI series noted , discussed with Alessandra GI cleared for dc abx ID follows, blood cx preliminary negative, change to Auigmentin upon dc to complete course as per ID continue PPI , Carafate awaiting biopsy results wound care as per wound nurse recombinations BP management with BB and CCB stable outpt treatment for hep C dc t SNF today after blood transfusion case discussed and evaluated by supervising physician Subjective Allergies: Coded Allergies: No Known Allergies (Unverified , 08/28/16) Subjective tolerated diet HH remains stable no further episodes of GI bleeding afebrile, leukocytosis resolved Objective Last 24 Hour Vital Signs Date Time Temp Pulse Resp B/P Pulse Ox O2 Delivery O2 Flow Rate FiO2 08/31/16 11:41 98.0 79 20 118/73 100 Room Air 08/31/16 08:38 68 131/84 08/31/16 08:38 68 131/84 08/31/16 08:08 98.4 68 20 131/84 100 Room Air 08/31/16 04:00 97.0 83 20 132/69 100 Nasal Cannula 2.0 08/31/16 00:00 98.0 76 20 113/63 100 Nasal Cannula 2.0 08/31/16 00:00 70 08/30/16 20:00 71 08/30/16 20:00 98.1 62 20 142/69 100 Nasal Cannula 2.0 08/30/16 16:40 98 Nasal Cannula 2.0 28 08/30/16 16:40 Nasal Cannula 2.0 28 08/30/16 16:00 73 08/30/16 15:17 96.7 78 20 121/68 100 Nasal Cannula 2.0 Intake and Output 08/30/16 08/31/16 19:00 07:00 Intake Total 2111.3 ml 1487.5 ml Output Total 600 ml 300 ml Balance 1511.3 ml 1187.5 ml Intake Oral 1350 ml 600 ml IV Total 761.3 ml 637.5 ml Blood Product 250 ml Output Urine Total 600 ml 300 ml # Voids 1 1 # Bowel Movements 4 1 General Appearance: no acute distress, cachetic HEENT: normocephalic, atraumatic, anicteric, mucous membranes moist Respiratory/Chest: lungs clear, no respiratory distress, no accessory muscle use Cardiovascular: normal rate, regular rhythm Abdomen: soft, non tender Extremities: no edema Neurologic/Psychiatric: alert, responsive, normal mood/affect Microbiology Date/Time Source Procedure Growth Status 08/28/16 17:40 Blood Blood Culture - Preliminary NO GROWTH AFTER 48 HOURS Resulted 08/28/16 17:30 Blood Blood Culture - Preliminary NO GROWTH AFTER 48 HOURS Resulted Laboratory Tests 08/31/16 09:05: White Blood Count 7.3, Red Blood Count 2.66L, Hemoglobin 7.6L, Hematocrit 23.4L , Mean Corpuscular Volume 88, Mean Corpuscular Hemoglobin 28.5, Mean Corpuscular Hemoglobin Concent 32.4, Red Cell Distribution Width 17.4H, Platelet Count 317, Mean Platelet Volume 5.2L, Neutrophils (%) (Auto) , Lymphocytes (%) (Auto) , Monocytes (%) (Auto) , Eosinophils (%) (Auto) , Basophils (%) (Auto) , Differential Total Cells Counted 100, Neutrophils % ( Manual) 84H, Lymphocytes % (Manual) 10L, Monocytes % (Manual) 5, Eosinophils % ( Manual) 1, Basophils % (Manual) 0, Band Neutrophils 0, Platelet Estimate Adequate, Platelet Morphology Normal, Hypochromasia 1+, Anisocytosis 1+, Sodium Level 137, Potassium Level 3.3L, Chloride Level 101, Carbon Dioxide Level 24, Anion Gap 12, Blood Urea Nitrogen 6L, Creatinine 0.8, Estimat Glomerular Filtration Rate > 60, Glucose Level 117H, Calcium Level 8.1L, Phosphorus Level 2.5, Magnesium Level 1.7, Total Bilirubin < 0.2, Aspartate Amino Transf (AST/ SGOT) 22, Alanine Aminotransferase (ALT/SGPT) 13, Alkaline Phosphatase 62, Total Protein 5.7L, Albumin 2.4L, Globulin 3.3, Albumin/Globulin Ratio 0.7L Current Medications Medications (Trade) Dose Ordered Sig/Jaime Route PRN Reason Start Time Stop Time Status Last Admin Dose Admin Acetaminophen (Tylenol) 650 mg Q4H PRN ORAL fever 08/31/16 07:15 09/30/16 07:14 Al Hydroxide/Mg Hydroxide (Mylanta II) 30 ml Q6H PRN ORAL dyspepsia 08/31/16 07:15 09/30/16 07:14 Amlodipine Besylate (Norvasc) 10 mg DAILY ORAL 08/31/16 09:00 09/30/16 08:59 08/31/16 08:38 Dextrose (Dextrose 50%) STAT PRN IV Hypoglycemia 08/31/16 07:15 09/30/16 07:14 Dextrose/Sodium Chloride 1,000 ml @ 75 mls/hr [id number] IV 08/31/16 06:45 09/30/16 06:44 Diphenhydramine HCl (Benadryl) 25 mg Q6H PRN ORAL Itching/Pruritis 08/31/16 07:15 09/30/16 07:14 Metoprolol Succinate (Toprol XL) 50 mg DAILY ORAL 08/31/16 09:00 09/30/16 08:59 08/31/16 08:38 Morphine Sulfate (Morphine Sulfate) 2 mg EVERY 4 HOURS PRN IVP severe Pain (Pain Scale 7-10) 08/31/16 09:00 09/07/16 08:59 Nicotine (Nicoderm) 1 patch Q24H TDERMAL 08/31/16 10:00 09/30/16 09:59 08/31/16 11:53 Nitroglycerin (Ntg) 0.4 mg Q5M X 3 DOSES PRN SL Prn Chest Pain 08/31/16 06:45 09/30/16 06:44 Ondansetron HCl (Zofran) 4 mg Q6H PRN IVP Nausea & Vomiting 08/31/16 07:15 09/30/16 07:14 Pantoprazole (Protonix) 40 mg EVERY 12 HOURS ORAL 08/31/16 09:00 09/30/16 08:59 08/31/16 08:38 Piperacillin Sod/ Tazobactam Sod/ Sodium Chloride (Zosyn/Sodium Chloride) 110 ml @ 27.5 mls/hr Q8H IVPB 08/31/16 10:00 09/04/16 09:59 08/31/16 10:14 Polyethylene Glycol (Miralax) 17 gm HSPRN PRN ORAL Constipation 08/31/16 07:15 09/30/16 07:14 Sucralfate (Carafate) 1 gm FOUR TIMES A DAY ORAL 08/31/16 09:00 09/30/16 08:59 08/31/16 08:38 Tamsulosin HCl (Flomax) 0.4 mg BEDTIME ORAL 08/31/16 21:00 09/30/16 20:59 Temazepam (Restoril) 15 mg HSPRN PRN ORAL Insomnia 08/31/16 07:15 09/07/16 07:14 [facility] [place] [facility]Elizabeth Coronado NP Aug 31, 2016 12:56
[2016-08-31] MEDS ORDERED: AUGMENTIN 500-1 EACH ORAL (13:06)
[2016-08-31] MEDS ORDERED: CARAFATE1 G1 ORAL (13:06)
--- NOTE | 2016-08-31 14:08 | GI Progress Note ---
Assessment/Plan Problems: (1) Perforated gastric ulcer ICD Codes: K25.5 - Chronic or unspecified gastric ulcer with perforation SNOMED: 1008840 (2) Severe malnutrition ICD Codes: E43 - Unspecified severe protein-calorie malnutrition SNOMED: 93199619 (3) Dehydration ICD Codes: E86.0 - Dehydration SNOMED: 40341914 (4) Upper GI bleed ICD Codes: K92.2 - Gastrointestinal hemorrhage, unspecified SNOMED: 48992117 (5) Anemia in chronic illness ICD Codes: D63.8 - Anemia in other chronic diseases classified elsewhere SNOMED: 950929037 (6) Cocaine abuse ICD Codes: F14.10 - Cocaine abuse, uncomplicated SNOMED: 26521489, 526357104 (7) Hepatitis C ICD Codes: B19.20 - Unspecified viral hepatitis C without hepatic coma SNOMED: 04946901 Status: stable Status Narrative Discussed with Dr. Carreno. Assessment/Plan [facility] RECORDS >> s/p duodenal and gastric perforation repair, umbilical hernia repair, abdominal washout, see full procedural report in physical chart. s/p EGD SUMMARY OF FINDINGS: 1. Irregular lining at the GE junction. 2. Gastric ulcers, see above for details. 3. Duodenal ulcer with a visible vessel and communication with possibly peritoneum, status post hemostasis. UGI with Gastrografin Indication: Gastric ulcer perforation, and expected pneumobilia on recent CT scan, evaluation for leak and possible duodenal biliary fistula Linear metallic densities project immediately inferiorly, and are consistent with prior surgery in this area. Bowel gas pattern is unremarkable. Although not visible on the fare collector images, subsequent overhead images demonstrate pneumobilia as described on recent CT scan. The esophagus demonstrates grossly normal motility. The stomach demonstrates normal contour and distensibility. No active leak from the duodenum was observed. However, later images demonstrate a linear contrast collection medial is posterior to the duodenal bulb and just medial to the second portion of the duodenum. This presumably represents the common bile duct. However, despite careful observation in multiple obliquities, definite fistulous connection between it and the duodenal bulb could not be visualized. The proximal small bowel appears unremarkable. Impression: Contrast opacifies the common bile duct. However, the entry into the common bile duct was not observed fluoroscopically. Therefore, it is uncertain whether this is due to a fistula between the duodenum and the common bile duct, versus retrograde entry via an incompetent sphincter of Oddi. Suspect the latter although the former is not completely excludable RECOMMENDATIONS: adv to regular diet, tolerating abdominal pain resolved monitor H&H, transfuse prn for Hgb above 7. cont PPI + Carafate fu biopsy report pt will require fu with primary surgeon Subjective Subjective tolerating diet ready to go home Objective Last 24 Hour Vital Signs Date Time Temp Pulse Resp B/P Pulse Ox O2 Delivery O2 Flow Rate FiO2 08/31/16 11:41 98.0 79 20 118/73 100 Room Air 08/31/16 08:38 68 131/84 08/31/16 08:38 68 131/84 08/31/16 08:08 98.4 68 20 131/84 100 Room Air 08/31/16 04:00 97.0 83 20 132/69 100 Nasal Cannula 2.0 08/31/16 00:00 98.0 76 20 113/63 100 Nasal Cannula 2.0 08/31/16 00:00 70 08/30/16 20:00 71 08/30/16 20:00 98.1 62 20 142/69 100 Nasal Cannula 2.0 08/30/16 16:40 98 Nasal Cannula 2.0 28 08/30/16 16:40 Nasal Cannula 2.0 28 08/30/16 16:00 73 08/30/16 15:17 96.7 78 20 121/68 100 Nasal Cannula 2.0 Intake and Output 08/30/16 08/31/16 19:00 07:00 Intake Total 2111.3 ml 1487.5 ml Output Total 600 ml 300 ml Balance 1511.3 ml 1187.5 ml Intake Oral 1350 ml 600 ml IV Total 761.3 ml 637.5 ml Blood Product 250 ml Output Urine Total 600 ml 300 ml # Voids 1 1 # Bowel Movements 4 1 Laboratory Tests Test 08/31/16 09:05 White Blood Count 7.3 K/UL (4.8-10.8) Red Blood Count 2.66 M/UL (4.70-6.10) L Hemoglobin 7.6 G/DL (14.2-18.0) L Hematocrit 23.4 % (42.0-52.0) L Mean Corpuscular Volume 88 FL (80-99) Mean Corpuscular Hemoglobin 28.5 PG (27.0-31.0) Mean Corpuscular Hemoglobin Concent 32.4 G/DL (32.0-36.0) Red Cell Distribution Width 17.4 % (11.6-14.8) H Platelet Count 317 K/UL (150-450) Mean Platelet Volume 5.2 FL (6.5-10.1) L Neutrophils (%) (Auto) % (45.0-75.0) Lymphocytes (%) (Auto) % (20.0-45.0) Monocytes (%) (Auto) % (1.0-10.0) Eosinophils (%) (Auto) % (0.0-3.0) Basophils (%) (Auto) % (0.0-2.0) Differential Total Cells Counted 100 Neutrophils % (Manual) 84 % (45-75) H Lymphocytes % (Manual) 10 % (20-45) L Monocytes % (Manual) 5 % (1-10) Eosinophils % (Manual) 1 % (0-3) Basophils % (Manual) 0 % (0-2) Band Neutrophils 0 % (0-8) Platelet Estimate Adequate Platelet Morphology Normal Hypochromasia 1+ Anisocytosis 1+ Sodium Level 137 mEQ/L (135-145) Potassium Level 3.3 mEQ/L (3.4-4.9) L Chloride Level 101 mEQ/L (98-107) Carbon Dioxide Level 24 mEQ/L (20-30) Anion Gap 12 (5-15) Blood Urea Nitrogen 6 mg/dL (7-23) L Creatinine 0.8 mg/dL (0.7-1.2) Estimat Glomerular Filtration Rate > 60 mL/min (>60) Glucose Level 117 mg/dL (74-106) H Calcium Level 8.1 mg/dL (8.6-10.2) L Phosphorus Level 2.5 mg/dL (2.5-4.8) Magnesium Level 1.7 mg/dL (1.7-2.5) Total Bilirubin < 0.2 mg/dL (0.0-1.2) Aspartate Amino Transf (AST/SGOT) 22 U/L (5-40) Alanine Aminotransferase (ALT/SGPT) 13 U/L (3-41) Alkaline Phosphatase 62 U/L (40-129) Total Protein 5.7 g/dL (6.6-8.7) L Albumin 2.4 g/dL (3.5-5.2) L Globulin 3.3 g/dL Albumin/Globulin Ratio 0.7 (1.0-2.7) L Height (Feet): 5 Height (Inches): 11.00 Weight (Pounds): 110 General Appearance: no apparent distress, alert, thin Cardiovascular: normal rate Respiratory/Chest: normal breath sounds, no respiratory distress Abdominal Exam: normal bowel sounds, non tender, soft Extremities: normal range of motion Ning López N.P. Aug 31, 2016 14:08
--- NOTE | 2016-08-31 14:22 | General Progress Note ---
Progress Note Progress Note Surgery: no acute events. doing okay. afebrile, HD stable, labs okay. exam benign. CT reviewed, Upper GI reviewed, EDG results noted. Interesting case given findings. fortunately patient is currently stable and no acute intervention necessary. Recommend Diet as tolerated PPI given ulcers Will need repeat EGD in future after discharge to monitor ulcers Will need to follow up with Surgeon after discharge as well. No acute surgical intervention necessary at this time. Kleber Davis Aug 31, 2016 14:22
[2016-08-31 15:58] VITALS: BP 133/74
[2016-08-31] MEDS ORDERED: Tubing IV Secondary IV ONE (18:29)
[2016-08-31] MEDS ORDERED: Tubing Blood Filter IV ONE (18:29)
[2016-08-31] MEDS ORDERED: NS 275ml ONE (18:29)
[2016-08-31] MEDS ORDERED: D5 1/2NS 1000ml IV ONE ×3 (18:29)
[2016-08-31] MEDS ORDERED: Tamsulosin 0.4mg cap ORAL SCH (21:00)
--- NOTE | 2016-09-03 10:25 | Discharge Summary ---
Discharge Summary Hospital Course Date of Admission Aug 28, 2016 at 03:12 Date of Discharge Aug 31, 2016 at 18:30 Admitting Diagnosis UPPER GI BLEED HPI Jean Chand is a 56 year old male who was admitted on Aug 28, 2016 at 03:12 for Upper Gastrointestinal Bleed Hospital Course dc summary #[id number] Discharge Medications New Medications: Amoxicillin/Potassium Clav 500-125 Tablet* (Augmentin 500-125 Tablet*) 1 Each Tablet 1 TAB ORAL THREE TIMES A DAY, #9 TAB Sucralfate* (Carafate*) 1 Gm Tablet 1 GM ORAL FOUR TIMES A DAY, #120 TAB Continued Medications: Amlodipine Besylate* (Amlodipine Besylate*) 10 Mg Tablet 10 MG ORAL DAILY, TAB Docusate Sodium* (Docusate Sodium*) 100 Mg Capsule 100 MG ORAL TWICE A DAY, CAP Hydrocodone Bit/Acetaminophen 10-325* ([place] 10-325*) 1 Each Tablet 1 TAB ORAL Q6H PRN for For Pain, #10 TAB 0 Refills PRN PAIN Magnesium Hydroxide* (Milk Of Magnesia*) 2,400 Mg/10 Ml Oral.susp 30 ML ORAL DAILY, ML Metoprolol Succinate* (Toprol Xl*) 50 Mg Tab.er.24h 50 MG ORAL DAILY, TAB Pantoprazole* (Pantoprazole*) 40 Mg Tablet.dr 40 MG ORAL DAILY, TAB Tamsulosin Hcl (Tamsulosin Hcl*) 0.4 Mg Cap.er.24h 0.4 MG ORAL BEDTIME, CAP Discharge Condition Upon Discharge: stable Discharge Disposition Patient was discharged to SNF/Subacute Facility(03) Discharge Diagnoses: Christian (Pepper)Elizabeth NP Sep 03, 2016 10:25
--- NOTE | 2016-09-03 11:46 | Discharge Summary 2 SIG ---
DATE OF ADMISSION: 08/28/2016 DATE OF DISCHARGE: 08/31/2016 REASON FOR ADMISSION: 56-year-old male, resident of the prison facility with history of gastritis and drug abuse, recently admitted to prison facility after surgery for perforated ulcer, presented to emergency room with complaint of abdominal pain, vomiting, and diarrhea. The patient reported blood in vomitus and bloody diarrhea. He felt weak and tired. He denied chest pain, fever, or chills. He denied shortness of breath. The patient was afebrile , leukocytosis - 17.8, hemoglobin initially - 9.9, and hematocrit- 31.7. The patient was admitted for further management. ADMITTING DIAGNOSES: 1. Upper gastrointestinal bleeding. 2. Dehydration. 3. Anemia. 4. History of perforated ulcer. 5. History of drug abuse. HOSPITAL STAY: The patient was admitted, made NPO and started on intravenous fluids. GI consult was requested. Subsequently, the patient was scheduled for EGD. Upper endoscopy with biopsy was done on 08/29/2016, the patient found to have irregular lining at the gastroesophageal junction, gastric ulcer, and duodenal ulcer with a visible vessel and communication with possibly peritoneum, status post hemostasis. Per Gastroenterology, the patient was kept NPO. Biopsy result still pending. GI recommended transfuse as needed to keep hemoglobin above 7 , Surgery consult, and upper gastrointestinal series with Gastrografin to evaluate where was the communication of duodenal ulcer. The patient was started on PPI. Carafate continued. Upper gastrointestinal series revealed findings with likelihood of retrograde entry via incomplete sphincter of Oddi, however, could not exclude completely fistula between duodenum and the common bile duct. Surgery followed. Per surgery, the patient was stable. No acute interventions were needed; exam was benign. Surgeon concurred with PPI , given ulcer; recommended repeat esophagogastroduodenoscopy in the future to monitor for ulcer and follow up with the surgeon after discharge. No acute surgical intervention at this time. Hemoglobin and hematocrit were closely monitored. On the next day, on 08/29/2016, hemoglobin down to 6.5 and hematocrit -20.4. The patient was transfused with 2 units of packed red blood cells. On day of discharge, hemoglobin -7.6 and hematocrit- 23.1. Additional unit of packed red blood cells was given prior to discharge. No further episodes of bleeding. Serology for HIV was negative. Venous duplex of bilateral lower extremities was negative. CT of the abdomen and pelvis was reviewed carefully by GI and the surgeon. According to surgeon, CAT scan have some inflammatory changes around gallbladder and possible distention of stomach. The patient was improved symptomatically. ID also followed the patient, ID doubted cholangitis or cholecystitis. LFTs were within normal limits. Status post leukocytosis, resolved. The patient was on empiric Zosyn. Upon discharge changed to oral Augmentin to complete the course. Blood pressure was managed with beta-ediwn and calcium channel edwin and was stable. Recommended outpatient treatment for hepatitis C. Continue PPI and Carafate. Patient was counseled on abstinence from illicit drug use. Wound care was provided as per wound care nurse recommendation. The patient was able to tolerate diet. No further episodes of the upper GI bleeding or blood in stool. Vital signs were stable. Pulse oximetry was stable on the room air. The patient was stable for discharge to prison facility. Follow up as an outpatient with gastrointestinal specialist and surgeon. Follow up with biopsy results. DISCHARGE DIAGNOSES: 1. Upper gastrointestinal bleeding 2. status post upper endoscopy with biopsy. 3. Gastric ulcer. 4. Duodenal ulcer with visible vessel and communication with possibly peritoneal, status post hemostasis. 5. Anemia of acute blood loss. 6. Cachexia. 7. Right knee stage II decubitus ulcer present on admission. and mid back decubitus ulcer stage II present on admission. 8. History of recent perforated ulcer. 9. Dehydration. 10. Hypertension. 11. History of Cocaine abuse. 12. Hepatitis C. DISCHARGE INSTRUCTIONS: The patient discharged to prison facility. Follow up with medical doctor. Follow up as outpatient surgeon and GI. DISCHARGE MEDICATIONS: See medication reconciliation list. Nilesh Reddy M.D. Elizabeth YangU.S. Army [facility] Hospital [facility]) N.PTommy DR: THEODORA JOB#: [id number] CC: CURTIS
== END 2016-08-31 18:30 | DRG 377 ==
LOC: ENRESERVDT → ENRESERVTM → EDBD 00:13 → EMR 00:26 → 2E 03:12 → EDBEDREQ 03:20 → 4W 08-31 07:06
PROC: 0W3P8ZZ Control Bleeding in Gastrointestinal Tract, Via Natural or Artificial Opening Endoscopic (ICD-10-PCS; principal; 2016-08-29 14:36)
PROC: 30233N1 Transfusion of Nonautologous Red Blood Cells into Peripheral Vein, Percutaneous Approach (ICD-10-PCS; principal; 2016-08-29 14:36)
PROC: 0DB68ZX Excision of Stomach, Via Natural or Artificial Opening Endoscopic, Diagnostic (ICD-10-PCS; principal; 2016-08-29 14:36)
DX: K92.2 Gastrointestinal hemorrhage, unspecified (principal); E43 Unspecified severe protein-calorie malnutrition; L89.102 Pressure ulcer of unspecified part of back, stage 2; R64 Cachexia; L89.892 Pressure ulcer of other site, stage 2; K83.8 Other specified diseases of biliary tract; E86.0 Dehydration; D62 Acute posthemorrhagic anemia; Z68.1 Body mass index [BMI] 19.9 or less, adult; B19.20 Unspecified viral hepatitis C without hepatic coma; D47.3 Essential (hemorrhagic) thrombocythemia; K25.9 Gastric ulcer, unspecified as acute or chronic, without hemorrhage or perforation; R10.9 Unspecified abdominal pain; I10 Essential (primary) hypertension; F14.21 Cocaine dependence, in remission; D63.8 Anemia in other chronic diseases classified elsewhere; F19.21 Other psychoactive substance dependence, in remission; K21.9 Gastro-esophageal reflux disease without esophagitis; J44.9 Chronic obstructive pulmonary disease, unspecified; Z86.73 Personal history of transient ischemic attack (TIA), and cerebral infarction without residual deficits; K25.5 Chronic or unspecified gastric ulcer with perforation
CPT/HCPCS: 36415; 74177; 74247; 80053; 81003; 82150; 83690; 83735; 84100; 85007; 85025; 85610; 85730; 86703; 86850; 86900; 86901; 86920; 87040; 87081; 93005; 93970; 94003; 94150; 94760; J2405; J8499

== ENCOUNTER 2016-09-04 15:37 | Inpatient (IN) | payer MEDICARE, MEDICAID ==
[~2016-09-04] VITALS: Ht 180.3 cm; Wt 49.0 kg
[~2016-09-04 15:37] MED LIST: AMLODIPINE BESY10 MG ORAL; AUGMENTIN 500-1 EACH ORAL; CARAFATE1 G1 ORAL; DOCUSATE SODIU100 MG ORAL; MILK OF MA2400 MG/10 ORAL; NORCO 10-325 T1 EACH ORAL; PANTOPRAZOLE SO40 MG ORAL; TAMSULOSIN HCL0.4 MG ORAL; TOPROL XL50 MG ORAL
[2016-09-04 15:41] VITALS: BP 139/73
--- NOTE | 2016-09-04 16:02 | Emergency Room Report ---
History of Present Illness General Chief Complaint: Vomiting Source: Patient, EMS Present Illness HPI Patient is a 56-year-old male sent in from senior living for vomiting for the past 2 days. The patient prior history of ulcer disease. He denies any pain. He reported having multiple episodes of vomiting over the past few days. He reported having been given Maalox by facility. He denied any pain at this time. He denied headache. The patient was currently in the facility for a leg fracture. Allergies: Coded Allergies: No Known Allergies (Unverified , 08/28/16) Patient History Past Medical History: see triage record Reviewed Nursing Documentation: PMH: Agreed, PSxH: Agreed Nursing Documentation-PMH Past Medical History: No History, Except For Hx Cardiac Problems: No Hx Hypertension: Yes Hx Cancer: No Review of Systems All Other Systems: negative except mentioned in HPI Physical Exam Vital Signs Date Time Temp Pulse Resp B/P Pulse Ox O2 Delivery O2 Flow Rate FiO2 09/04/16 15:30 97.9 50 16 148/89 98 Room Air Sp02 EP Interpretation: reviewed, normal General Appearance: normal inspection, well appearing, no apparent distress, alert, GCS 15, thin, Chronically Ill Head: atraumatic ENT: normal ENT inspection, hearing grossly normal, normal voice Neck: normal inspection, full range of motion, supple, no bony tend Respiratory: normal inspection, lungs clear, normal breath sounds, no respiratory distress, no retraction, no wheezing Cardiovascular #1: regular rate, rhythm, no edema Gastrointestinal: normal inspection, normal bowel sounds, non tender, soft, no guarding, no hernia Genitourinary: no CVA tenderness Musculoskeletal: normal inspection, back normal, normal range of motion Neurologic: normal inspection, alert, oriented x3, responsive, varnisher III-XII nml as tested, speech normal Psychiatric: normal inspection, judgement/insight normal, mood/affect normal Skin: normal inspection, normal color, no rash Medical Decision Making Diagnostic Impression: Primary Impression: Cholecystitis Additional Impression: Peptic ulcer disease ER Course Patient presented for abdominal pain. Differential diagnoses included ischemic bowel, appendicitis, perforated viscus, abdominal aortic aneurysm, inferior myocardial infarction, viral gastroenteritis Because of complexity of patient's case laboratory testing and imaging studies were ordered.Laboratory studies showed elevated white blood count compared to previous. Patient was noted to have a recent hospitalization in which he was noted to have a normal white blood count. The patient was given IV acid blockers as well as IV fluids. Dr. Reddy was contacted for inpatient management due to complexity of medical condition. Labs Test 09/04/16 18:28 09/04/16 18:37 Urine Color Pale yellow Urine Appearance Clear Urine pH 9 (4.5-8.0) Urine Specific [place] 1.010 (1.005-1.035) Urine Protein 1+ (NEGATIVE) Urine Glucose (UA) Negative (NEGATIVE) Urine Ketones Negative (NEGATIVE) Urine Occult Blood Negative (NEGATIVE) Urine Nitrite Negative (NEGATIVE) Urine Bilirubin Negative (NEGATIVE) Urine Urobilinogen Normal MG/DL (0.0-1.0) Urine Leukocyte Esterase Negative (NEGATIVE) Urine RBC 0-2 /HPF (0 - 0) Urine WBC 0-2 /HPF (0 - 0) Urine Squamous Epithelial Cells Few /LPF (NONE/OCC) Urine Bacteria Occasional /HPF (NONE) Urine Opiates Screen Positive (NEGATIVE) Urine Barbiturates Screen Negative (NEGATIVE) Phencyclidine (PCP) Screen Negative (NEGATIVE) Urine Amphetamines Screen Negative (NEGATIVE) Urine Benzodiazepines Screen Negative (NEGATIVE) Urine Cocaine Screen Negative (NEGATIVE) Urine Marijuana (THC) Screen Negative (NEGATIVE) White Blood Count 16.0 K/UL (4.8-10.8) Red Blood Count 4.04 M/UL (4.70-6.10) Hemoglobin 11.6 G/DL (14.2-18.0) Hematocrit 34.7 % (42.0-52.0) Mean Corpuscular Volume 86 FL (80-99) Mean Corpuscular Hemoglobin 28.6 PG (27.0-31.0) Mean Corpuscular Hemoglobin Concent 33.3 G/DL (32.0-36.0) Red Cell Distribution Width 18.1 % (11.6-14.8) Platelet Count 548 K/UL (150-450) Mean Platelet Volume 5.0 FL (6.5-10.1) Neutrophils (%) (Auto) 85.3 % (45.0-75.0) Lymphocytes (%) (Auto) 8.6 % (20.0-45.0) Monocytes (%) (Auto) 5.0 % (1.0-10.0) Eosinophils (%) (Auto) 0.6 % (0.0-3.0) Basophils (%) (Auto) 0.5 % (0.0-2.0) Prothrombin Time 9.5 SEC (9.30-11.50) Prothromb Time International Ratio 0.9 (0.9-1.1) Activated Partial Thromboplast Time 28 SEC (23-33) Sodium Level 139 mEQ/L (135-145) Potassium Level 3.7 mEQ/L (3.4-4.9) Chloride Level 90 mEQ/L (98-107) Carbon Dioxide Level 37 mEQ/L (20-30) Anion Gap 12 (5-15) Blood Urea Nitrogen 10 mg/dL (7-23) Creatinine 0.9 mg/dL (0.7-1.2) Estimat Glomerular Filtration Rate > 60 mL/min (>60) Glucose Level 121 mg/dL (74-106) Calcium Level 9.7 mg/dL (8.6-10.2) Total Bilirubin 0.3 mg/dL (0.0-1.2) Aspartate Amino Transf (AST/SGOT) 27 U/L (5-40) Alanine Aminotransferase (ALT/SGPT) 15 U/L (3-41) Alkaline Phosphatase 102 U/L (40-129) Troponin I < 0.30 ng/mL (<=0.30) Total Protein 8.1 g/dL (6.6-8.7) Albumin 3.2 g/dL (3.5-5.2) Globulin 4.9 g/dL Albumin/Globulin Ratio 0.6 (1.0-2.7) Lipase 22 U/L (< 60) Last Vital Signs Date Time Temp Pulse Resp B/P Pulse Ox O2 Delivery O2 Flow Rate FiO2 09/04/16 15:41 97.9 78 20 139/73 98 Room Air Status: unchanged Disposition: ADMITTED INPATIENT Condition: Joel Luong Sep 04, 2016 16:02
[2016-09-04] MEDS ORDERED: Metoclopramide 10mg/2ml Inj IVP ONE (16:15)
[2016-09-04] MEDS ORDERED: Famotidine 20 MG/ 2ML VIAL IVP ONE (16:15)
[2016-09-04 18:12] VITALS: BP 153/81
[2016-09-04 18:59] LABS: MEAN CORPUSCULAR HEMOGLOBIN 28.6 PG (27.0-31.0); MEAN CORPUSCULAR HGB CONC 33.3 G/DL (32.0-36.0); MEAN CORPUSCULAR VOLUME 86 FL (80-99); PLATELET COUNT 548 K/UL (150-450); RED BLOOD COUNT 4.04 M/UL (4.70-6.10); RED CELL DISTRIBUTION WIDTH 18.1 % (11.6-14.8)
[2016-09-04 19:01] LABS: APPEARANCE,URINE CLEAR; KETONES,URINE NEGATIVE (NEGATIVE); LEUKOCYTE ESTERASE ,URINE NEGATIVE (NEGATIVE); NITRITE,URINE NEGATIVE (NEGATIVE); PH,URINE 9 (4.5-8.0); PROTEIN,URINE 1+ (NEGATIVE); UROBILINOGEN,URINE NORMAL MG/DL (0.0-1.0)
[2016-09-04 19:03] LABS: BASOPHILS % (AUTO) 0.5 % (0.0-2.0); EOSINOPHILS % (AUTO) 0.6 % (0.0-3.0); LYMPHOCYTES % (AUTO) 8.6 % (20.0-45.0); NEUTROPHILS % (AUTO) 85.3 % (45.0-75.0)
[2016-09-04 19:07] LABS: INR 0.9 (0.9-1.1); PROTHROMBIN TIME 9.5 SEC (9.30-11.50)
[2016-09-04 19:10] LABS: TROPONIN I < 0.30 ng/mL (<=0.30)
[2016-09-04 19:13] LABS: ALANINE AMINOTRANSFERASE 15 U/L (3-41); ALBUMIN/GLOBULIN RATIO 0.6 (1.0-2.7); ANION GAP 12 (5-15); ASPARTATE AMINO TRANSFERASE 27 U/L (5-40); CALCIUM 9.7 mg/dL (8.6-10.2); CARBON DIOXIDE 37 mEQ/L (20-30); CHLORIDE 90 mEQ/L (98-107); CREATININE 0.9 mg/dL (0.7-1.2); GLOMERULAR FILTRATION RATE > 60 mL/min (>60); HEMOLYSIS 25; LIPASE 22 U/L (< 60); POTASSIUM 3.7 mEQ/L (3.4-4.9); SODIUM 139 mEQ/L (135-145); TOTAL PROTEIN 8.1 g/dL (6.6-8.7)
[2016-09-04 19:17] LABS: BACTERIA,URINE OCCASIONAL /HPF; RBC,URINE 0-2 /HPF (0 - 0); SQUAMOUS EPITHELIAL CELL,UR FEW /LPF (NONE/OCC); WBC,URINE 0-2 /HPF (0 - 0)
[2016-09-04 19:34] VITALS: BP 123/63
[2016-09-04] MEDS ORDERED: Miralax 17gm pkt ORAL PRN (20:15)
[2016-09-04] MEDS ORDERED: Mylanta II UD 30ml ORAL PRN (20:15)
[2016-09-04] MEDS ORDERED: Nitroglycerin Subl 0.4mg tab (Bottle Of 25) SL PRN (20:15)
[2016-09-04 21:24] VITALS: BP 113/72
[2016-09-04 21:56] VITALS: BP 153/91
[2016-09-04] MEDS: Tamsulosin 0.4mg cap ORAL SCH (22:00)
[2016-09-04] MEDS: Heparin 5000 units/ml inj SUBQ SCH (22:00)
[2016-09-04] MEDS: D5 1/2NS 1,000 ML IV SCH (22:06)
[2016-09-04] MEDS: Morphine Sulfate 2mg/ml Inj IVP PRN (22:06)
[2016-09-04] MEDS ORDERED: ACETAMINOPHEN325 M1 ORAL (22:24)
[2016-09-04 23:07] VITALS: BP 119/74
[2016-09-04] MEDS: Piperacillin/Tazobactam 3.375 GM in NS 110 ML IVPB SCH (23:14)
[2016-09-05 03:15] VITALS: BP 163/84
[2016-09-05] MEDS: Morphine Sulfate 2mg/ml Inj IVP PRN ×5 (03:27→22:36)
[2016-09-05] MEDS: Piperacillin/Tazobactam 3.375 GM in NS 110 ML IVPB SCH ×3 (05:18→21:20)
[2016-09-05 07:34] LABS: BASOPHILS % (AUTO) 0.2 % (0.0-2.0); EOSINOPHILS % (AUTO) 1.5 % (0.0-3.0); LYMPHOCYTES % (AUTO) 17.6 % (20.0-45.0); MEAN CORPUSCULAR HEMOGLOBIN 29.1 PG (27.0-31.0); MEAN CORPUSCULAR HGB CONC 32.4 G/DL (32.0-36.0); MEAN CORPUSCULAR VOLUME 90 FL (80-99); MEAN PLATELET VOLUME 5.2 FL (6.5-10.1); MONOCYTES % (AUTO) 7.3 % (1.0-10.0); NEUTROPHILS % (AUTO) 73.5 % (45.0-75.0); PLATELET COUNT 505 K/UL (150-450); RED BLOOD COUNT 3.45 M/UL (4.70-6.10); RED CELL DISTRIBUTION WIDTH 17.6 % (11.6-14.8); WHITE BLOOD COUNT 10.2 K/UL (4.8-10.8)
[2016-09-05 07:54] VITALS: BP 141/74
[2016-09-05 08:15] LABS: ALANINE AMINOTRANSFERASE 13 U/L (3-41); ALBUMIN/GLOBULIN RATIO 0.6 (1.0-2.7); AMYLASE 93 U/L (10-110); ANION GAP 9 (5-15); ASPARTATE AMINO TRANSFERASE 21 U/L (5-40); CALCIUM 9.2 mg/dL (8.6-10.2); CARBON DIOXIDE 35 mEQ/L (20-30); CHLORIDE 94 mEQ/L (98-107); CREATININE 1.1 mg/dL (0.7-1.2); GLOMERULAR FILTRATION RATE > 60 mL/min (>60); HEMOLYSIS 2; POTASSIUM 4.3 mEQ/L (3.4-4.9); SODIUM 138 mEQ/L (135-145); TOTAL PROTEIN 7.2 g/dL (6.6-8.7)
[2016-09-05] MEDS: Pantoprazole Inj IVP SCH (08:18)
[2016-09-05] MEDS: Heparin 5000 units/ml inj SUBQ SCH ×2 (08:20→21:22)
--- NOTE | 2016-09-05 09:24 | Diagnostic Imaging Report ---
Indication: Abdominal pain and vomiting Technique: Continuous helical transaxial imaging of the abdomen and pelvis was obtained from the lung bases to the pubic symphysis. No intravenous contrast was administered. Coronal 2-D reformats were also obtained. Total Dose length Product (DLP): [address] Dose Index Volume (CTDIvol): 9 mGy Comparison: none Findings: Metallic clips obscure visualization of the upper abdomen. The study should be repeated with IV and oral contrast especially given the history of vomiting, the extensive surgery that has been done and the absence of intra-abdominal fat. There is distention of the stomach. Whether there is gastric outlet impediment or obstruction is unknown. There is no significant definite small bowel dilatation to suggest bowel obstruction. There is a moderate amount of fecal retention in the colon. There is pneumobilia present. The surgical clips in the antrum of the stomach may reflect partial gastric resection. This is not evaluated adequately. The area of the pancreatic head/duodenum is not evaluated well. The gallbladder is probably absent. In the gallbladder fossa there is a complex, centrally low-attenuation structure measuring about 5 x 3.5 CM which could be part of the gastric antrum/first portion duodenum. This could be a complex fluid collection or distended gallbladder with thickened wall. Aorta is moderately calcified. There is no hydronephrosis obviously seen. There is no obvious free air or free fluid. Appendix is partially seen and normal as such. Calcification in the medial segment middle lobe may be old granulomatous disease. The lung bases are clear otherwise. Impression: Limited study as discussed above. Suggest repeat with IV and oral contrast. Consider endoscopy for further evaluation of the stomach. Complex cystic focus in the gallbladder fossa. This could be part of the stomach. This could be the gallbladder with thickened wall. Other fluid collection is not excluded. Distended stomach. Gastric outlet impediment/obstruction not excluded. Moderate stool Atherosclerotic vascular disease Partial visualization of the appendix which appears normal as visualized. Pneumobilia. Thickening of the distal wall of esophagus. Inflammatory versus neoplastic. The CT scanner at [facility] is accredited by the [employer] and the scans are performed using dose optimization techniques as appropriate to a performed exam including Automatic Exposure control.
[2016-09-05 12:10] VITALS: BP 127/70
--- NOTE | 2016-09-05 13:01 | Consultation ---
DATE OF CONSULTATION: 09/05/2016 SURGICAL CONSULTATION SURGEON: Baldo Recio M.D. REASON FOR CONSULT: Abdominal pain, nausea, and vomiting. PRESENT HISTORY: This 56-year-old gentleman, known to us from his previous admission one week ago. The patient had been seen and admitted to the hospital after having undergone a laparotomy and repair of a perforated peptic ulcer. Details of the operation were not available. The patient had undergone repeat endoscopy showing the presence of a pre-pyloric ulcer and a large ulcer involving most of the first portion of the duodenum, additionally was noted by the endoscopist that appeared to be bubbling in the area and suspected fistula was officially suspected. He had upper gastrointestinal study done last time that shows pneumobilia as well as an apparent connection between the duodenum and the bile duct. It was not well defined. The patient had been discharged and was readmitted for multiple episodes of vomiting. He was seen in the emergency department and underwent a CT scan unfortunately. Once again, they did not give oral IV contrast making the study far less valuable. The CT scan has been reviewed with the radiologist, who recommends that we will repeat the CT scan at this time with oral and intravenous contrast to better define the problem. PAST MEDICAL HISTORY: Remarkable for hepatitis C, hypertension, and history of cocaine use. MEDICATIONS: Previous medications included amlodipine, docusate, milk of magnesia, Toprol, pantoprazole, and tamsulosin. PHYSICAL EXAMINATION: GENERAL: Reveals a well-developed, pleasant gentleman, in no acute distress. VITAL SIGNS: Show a temperature of 98 degrees, pulse of 55, respirations 21, and blood pressure is 141/74. HEENT: Normocephalic. There is no scleral icterus. Pupils round and reactive to light. His throat is clear. No exudates or pharyngitis. NECK: Supple. LUNGS: Clear bilaterally. HEART: Normal sinus rhythm. ABDOMEN: Soft. There is a healing midline wound in the epigastrium. There is a small palpable suture present in the top part of the wound. Drain sites are healed with no guarding, rebound, or tenderness. LABORATORY DATA: Laboratory exam show a white blood count of 16, hemoglobin 11.6, hematocrit 34.7, and platelet count is 548,000. Chemistry shows a sodium of 139, potassium 3.7, chloride 98, bicarbonate 37, BUN of 10, and creatinine 0.9. Total bilirubin 0.3. ALT of 27, AST of 15, and alkaline phosphatase 102. Total protein 9.1. Amylase of 93 and lipase of 22. IMPRESSION: 1. Abdominal pain. 2. Peptic ulcer disease involving stomach and duodenum. 3. 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 PLAN: The patient will undergo repeat CT scan this time with oral and intravenous contrast. Depending on the findings, may proceed with other studies. The patient may require surgery for same. Baldo Recio M.D. DR: SUNG JOB#: [id number] CC:
[2016-09-05] MEDS: D5 1/2NS 1,000 ML IV SCH (13:17)
[2016-09-05] MEDS: Sucralfate 1gm tab ORAL SCH ×3 (13:17→21:21)
--- NOTE | 2016-09-05 16:05 | History and Physical ---
History of Present Illness General Date patient seen: Sep 05, 2016 Reason for Hospitalization: Vomiting Present Illness HPI 56-year-old male with recent hospitalization for UGI bleeding at [facility] and prior hospitalization at [place] [facility] is sent in from senior care for vomiting for the past 2 days. The patient prior history of ulcer disease. He denies any pain. He reported having multiple episodes of vomiting over the past few days. Allergies: Coded Allergies: No Known Allergies (Unverified , 08/28/16) Medication History Scheduled Amlodipine Besylate* (Amlodipine Besylate*), 10 MG ORAL DAILY, (Reported) Amoxicillin/Potassium Clav 500-125 Tablet* (Augmentin 500-125 Tablet*), 1 TAB ORAL THREE TIMES A DAY Docusate Sodium* (Docusate Sodium*), 100 MG ORAL TWICE A DAY, (Reported) Metoprolol Succinate* (Toprol Xl*), 50 MG ORAL BID, (Reported) Pantoprazole* (Pantoprazole*), 40 MG ORAL DAILY, (Reported) Sucralfate* (Carafate*), 1 GM ORAL FOUR TIMES A DAY Tamsulosin Hcl (Tamsulosin Hcl*), 0.4 MG ORAL BEDTIME, (Reported) Scheduled PRN Acetaminophen* (Acetaminophen 325MG Tablet*), 650 MG ORAL Q4H PRN for Mild Pain/ Temp > 100.5, (Reported) Hydrocodone Bit/Acetaminophen 10-325* ([place] 10-325*), 1 TAB ORAL Q6H PRN for For Pain, (Reported) Magnesium Hydroxide* (Milk Of Magnesia*), 30 ML ORAL DAILY PRN for Constipation, (Reported) Patient History Healthcare decision maker N Resuscitation status Full Code Advanced Directive on File Past Medical/Surgical History Past Medical/Surgical History: (1) Hepatitis C (2) Cocaine abuse (3) Peptic ulcer disease (4) Cholecystitis (5) HTN (hypertension) Review of Systems All Other Systems: negative except mentioned in HPI Physical Exam General Appearance: cachetic Lines, tubes and drains: peripheral HEENT: normocephalic, atraumatic Neck: non-tender, normal alignment Respiratory/Chest: chest wall non-tender, lungs clear Cardiovascular/Chest: normal peripheral pulses, normal rate Abdomen: normal bowel sounds, non tender Genitourinary/Rectal: normal genital exam Extremities: normal range of motion Skin Exam: cyanotic Last 24 Hour Vital Signs Date Time Temp Pulse Resp B/P Pulse Ox O2 Delivery O2 Flow Rate FiO2 09/05/16 13:59 97.5 09/05/16 12:10 97.5 71 22 127/70 99 Room Air 09/05/16 08:18 55 141/74 09/05/16 08:17 55 141/74 09/05/16 07:54 98.0 55 21 141/74 95 Room Air 09/05/16 03:15 98.2 61 17 163/84 99 Room Air 09/04/16 23:07 99.7 73 18 119/74 100 Room Air 09/04/16 21:56 97.3 69 16 153/91 100 Room Air 09/04/16 21:42 97.9 79 20 113/72 98 Room Air 09/04/16 21:24 97.9 79 20 113/72 98 Room Air 09/04/16 19:34 97.9 63 24 123/63 98 Room Air 09/04/16 18:12 97.9 89 19 153/81 100 Room Air Intake and Output 09/04/16 09/05/16 19:00 07:00 Intake Total 1237.5 ml Balance 1237.5 ml Intake IV Total 1237.5 ml # Voids 1 1 Laboratory Tests Test 09/04/16 18:28 09/04/16 18:37 09/05/16 06:15 09/05/16 06:25 Urine Color Pale yellow Urine Appearance Clear Urine pH 9 (4.5-8.0) Urine Specific [place] 1.010 (1.005-1.035) Urine Protein 1+ (NEGATIVE) H Urine Glucose (UA) Negative (NEGATIVE) Urine Ketones Negative (NEGATIVE) Urine Occult Blood Negative (NEGATIVE) Urine Nitrite Negative (NEGATIVE) Urine Bilirubin Negative (NEGATIVE) Urine Urobilinogen Normal MG/DL (0.0-1.0) Urine Leukocyte Esterase Negative (NEGATIVE) Urine RBC 0-2 /HPF (0 - 0) H Urine WBC 0-2 /HPF (0 - 0) Urine Squamous Epithelial Cells Few /LPF (NONE/OCC) Urine Bacteria Occasional /HPF (NONE) Urine Opiates Screen Positive (NEGATIVE) H Urine Barbiturates Screen Negative (NEGATIVE) Phencyclidine (PCP) Screen Negative (NEGATIVE) Urine Amphetamines Screen Negative (NEGATIVE) Urine Benzodiazepines Screen Negative (NEGATIVE) Urine Cocaine Screen Negative (NEGATIVE) Urine Marijuana (THC) Screen Negative (NEGATIVE) White Blood Count 16.0 K/UL (4.8-10.8) H 10.2 K/UL (4.8-10.8) Red Blood Count 4.04 M/UL (4.70-6.10) L 3.45 M/UL (4.70-6.10) L Hemoglobin 11.6 G/DL (14.2-18.0) L 10.1 G/DL (14.2-18.0) L Hematocrit 34.7 % (42.0-52.0) L 31.0 % (42.0-52.0) L Mean Corpuscular Volume 86 FL (80-99) 90 FL (80-99) Mean Corpuscular Hemoglobin 28.6 PG (27.0-31.0) 29.1 PG (27.0-31.0) Mean Corpuscular Hemoglobin Concent 33.3 G/DL (32.0-36.0) 32.4 G/DL (32.0-36.0) Red Cell Distribution Width 18.1 % (11.6-14.8) H 17.6 % (11.6-14.8) H Platelet Count 548 K/UL (150-450) H 505 K/UL (150-450) H Mean Platelet Volume 5.0 FL (6.5-10.1) L 5.2 FL (6.5-10.1) L Neutrophils (%) (Auto) 85.3 % (45.0-75.0) H 73.5 % (45.0-75.0) Lymphocytes (%) (Auto) 8.6 % (20.0-45.0) L 17.6 % (20.0-45.0) L Monocytes (%) (Auto) 5.0 % (1.0-10.0) 7.3 % (1.0-10.0) Eosinophils (%) (Auto) 0.6 % (0.0-3.0) 1.5 % (0.0-3.0) Basophils (%) (Auto) 0.5 % (0.0-2.0) 0.2 % (0.0-2.0) Prothrombin Time 9.5 SEC (9.30-11.50) Prothromb Time International Ratio 0.9 (0.9-1.1) Activated Partial Thromboplast Time 28 SEC (23-33) Sodium Level 139 mEQ/L (135-145) 138 mEQ/L (135-145) Potassium Level 3.7 mEQ/L (3.4-4.9) 4.3 mEQ/L (3.4-4.9) Chloride Level 90 mEQ/L (98-107) L 94 mEQ/L (98-107) L Carbon Dioxide Level 37 mEQ/L (20-30) H 35 mEQ/L (20-30) H Anion Gap 12 (5-15) 9 (5-15) Blood Urea Nitrogen 10 mg/dL (7-23) 11 mg/dL (7-23) Creatinine 0.9 mg/dL (0.7-1.2) 1.1 mg/dL (0.7-1.2) Estimat Glomerular Filtration Rate > 60 mL/min (>60) > 60 mL/min (>60) Glucose Level 121 mg/dL (74-106) H 95 mg/dL (74-106) Calcium Level 9.7 mg/dL (8.6-10.2) 9.2 mg/dL (8.6-10.2) Total Bilirubin 0.3 mg/dL (0.0-1.2) 0.4 mg/dL (0.0-1.2) Aspartate Amino Transf (AST/SGOT) 27 U/L (5-40) 21 U/L (5-40) Alanine Aminotransferase (ALT/SGPT) 15 U/L (3-41) 13 U/L (3-41) Alkaline Phosphatase 102 U/L (40-129) 89 U/L (40-129) Troponin I < 0.30 ng/mL (<=0.30) Total Protein 8.1 g/dL (6.6-8.7) 7.2 g/dL (6.6-8.7) Albumin 3.2 g/dL (3.5-5.2) L 2.8 g/dL (3.5-5.2) L Globulin 4.9 g/dL 4.4 g/dL Albumin/Globulin Ratio 0.6 (1.0-2.7) L 0.6 (1.0-2.7) L Lipase 22 U/L (< 60) Amylase Level 93 U/L (10-110) Test 09/05/16 07:00 Activated Partial Thromboplast Time 29 SEC (23-33) Height (Feet): 5 Height (Inches): 11.00 Weight (Pounds): 108 Medications Current Medications Medications (Trade) Dose Ordered Sig/Jaime Route PRN Reason Start Time Stop Time Status Last Admin Dose Admin Acetaminophen (Tylenol) 650 mg Q4H PRN ORAL fever 09/04/16 20:15 10/04/16 20:14 Al Hydroxide/Mg Hydroxide (Mylanta II) 30 ml Q6H PRN ORAL dyspepsia 09/04/16 20:15 10/04/16 20:14 Amlodipine Besylate (Norvasc) 10 mg DAILY ORAL 09/05/16 09:00 10/05/16 08:59 09/05/16 08:18 Dextrose STAT PRN IV Hypoglycemia 09/04/16 20:15 10/04/16 20:14 Dextrose/Sodium Chloride (D5 0.45% NS) 1,000 ml @ 75 mls/hr [id number] IV 09/04/16 22:00 10/04/16 21:59 09/05/16 13:17 Diphenhydramine HCl (Benadryl) 25 mg Q6H PRN ORAL Itching/Pruritis 09/04/16 20:15 10/04/16 20:14 Heparin Sodium (Porcine) (Heparin 5000 units/ml) 5,000 units EVERY 12 HOURS SUBQ 09/04/16 22:00 10/04/16 21:59 09/05/16 08:20 Metoprolol Succinate (Toprol XL) 50 mg DAILY ORAL 09/05/16 09:00 10/05/16 08:59 09/05/16 08:17 Morphine Sulfate (Morphine Sulfate) 2 mg Q4H PRN IVP severe Pain (Pain Scale 7-10) 09/04/16 20:15 09/11/16 20:14 09/05/16 13:29 Nitroglycerin (Ntg) 0.4 mg Q5M X 3 DOSES PRN SL Prn Chest Pain 09/04/16 20:15 10/04/16 20:14 Ondansetron HCl (Zofran) 4 mg Q6H PRN IVP Nausea & Vomiting 09/04/16 20:15 10/04/16 20:14 Pantoprazole (Protonix) 40 mg DAILY IVP 09/05/16 09:00 10/05/16 08:59 09/05/16 08:18 Piperacillin Sod/ Tazobactam Sod/ Sodium Chloride (Zosyn/Sodium Chloride) 110 ml @ 27.5 mls/hr EVERY 8 HOURS IVPB 09/04/16 23:00 09/11/16 22:59 09/05/16 13:17 Polyethylene Glycol (Miralax) 17 gm HSPRN PRN ORAL Constipation 09/04/16 20:15 10/04/16 20:14 Sucralfate (Carafate) 1 gm FOUR TIMES A DAY ORAL 09/05/16 13:00 10/05/16 12:59 09/05/16 13:17 Tamsulosin HCl 0.4 mg 0.4 mg BEDTIME ORAL 09/04/16 22:00 10/04/16 21:59 Temazepam (Restoril) 15 mg HSPRN PRN ORAL Insomnia 09/04/16 20:15 09/11/16 20:14 Assessment/Plan Problem List: (1) Intractable nausea and vomiting ICD Codes: R11.2 - Nausea with vomiting, unspecified SNOMED: 908270790, 696194085 (2) Severe malnutrition ICD Codes: E43 - Unspecified severe protein-calorie malnutrition SNOMED: 60957966 (3) Peptic ulcer disease ICD Codes: K27.9 - Peptic ulcer, site unspecified, unspecified as acute or chronic, without hemorrhage or perforation SNOMED: 47932994, 36356289 (4) Hepatitis C ICD Codes: B19.20 - Unspecified viral hepatitis C without hepatic coma SNOMED: 01516621 (5) Cocaine abuse ICD Codes: F14.10 - Cocaine abuse, uncomplicated SNOMED: 56719491, 752709693 Assessment/Plan NPO IV fluids GI and surgery consult check electrolytes. KASH PAUL Sep 05, 2016 16:05
[2016-09-05 16:13] VITALS: BP 133/77
--- NOTE | 2016-09-05 16:37 | GI Initial Consult Note ---
History of Present Illness General Date patient seen: Sep 05, 2016 Time patient seen: 10:00 Reason for Hospitalization: Vomiting Referring physician: KASH STROUD Reason for Consultation: N/V Present Illness HPI Patient is a 56-year-old male sent in from residential for vomiting for the past 2 days. The patient prior history of ulcer disease. He denies any pain. He reported having multiple episodes of vomiting over the past few days. He reported having been given Maalox by facility. He denied any pain at this time. He denied headache. The patient was currently in the facility for a leg fracture. GI Consult. HPI as noted above. GI consulted for N/V. s/p EGD on 08/29/2016 found to have gastric and duodenal ulcers. UGI Xray on previous admission reveals "Contrast opacifies the common bile duct.. However, the entry into the common bile duct was not observed fluoroscopically. Therefore, it is uncertain whether this is due to a fistula between the duodenum and the common bile duct, versus retrograde entry via an incompetent sphincter of Oddi. Suspect the latter although the former is not completely excludable." He presents today with anemia, N/V, and hypoalbuminemia. DATE OF PROCEDURE: 08/29/2016 SURGEON: Yvan Carreno M.D. PROCEDURE: Upper endoscopy with biopsy. SUMMARY OF FINDINGS: 1. Irregular lining at the GE junction. 2. Gastric ulcers, see above for details. 3. Duodenal ulcer with a visible vessel and communication with possibly peritoneum, status post hemostasis. RECOMMENDATIONS: 1. The patient to be kept NPO. 2. Transfuse as needed to keep hemoglobin above 7. 3. We will discuss with the surgeon regarding this finding. 4. We are going to order upper gastrointestinal with Gastrografin to see what this communication is. 5. Recommend to continue on PPI. 6. Continue on Carafate. 7. Follow biopsy results. Home Meds Active Scripts Amoxicillin/Potassium Clav 500-125 Tablet* (AUGMENTIN 500-125 TABLET*) 1 Each Tablet, 1 TAB ORAL THREE TIMES A DAY, #9 TAB Prov:Christian (Vanchtmaggie)Elizabeth DIRECTOR OF ANNUAL GIVING 08/31/16 Sucralfate* (CARAFATE*) 1 Gm Tablet, 1 GM ORAL FOUR TIMES A DAY, #120 TAB Prov:Christian (Vanchtein)Elizabeth DIRECTOR OF ANNUAL GIVING 08/31/16 Reported Medications Acetaminophen* (ACETAMINOPHEN 325MG TABLET*) 325 Mg Tablet, 650 MG ORAL Q4H Y for Mild Pain/Temp > 100.5, TAB 09/04/16 Magnesium Hydroxide* (MILK OF MAGNESIA*) 2,400 Mg/10 Ml Oral.susp, 30 ML ORAL DAILY Y for Constipation, ML 08/28/16 Hydrocodone Bit/Acetaminophen 10-325* (NORCO 10-325*) 1 Each Tablet, 1 TAB ORAL Q6H Y for For Pain, #10 TAB 0 Refills PRN PAIN 08/28/16 Docusate Sodium* (DOCUSATE SODIUM*) 100 Mg Capsule, 100 MG ORAL TWICE A DAY, CAP 08/28/16 Pantoprazole* (PANTOPRAZOLE*) 40 Mg Tablet.dr, 40 MG ORAL DAILY, TAB 08/28/16 Tamsulosin Hcl (TAMSULOSIN HCL*) 0.4 Mg Cap.er.24h, 0.4 MG ORAL BEDTIME, CAP 08/28/16 Metoprolol Succinate* (TOPROL XL*) 50 Mg Tab.er.24h, 50 MG ORAL BID, TAB 08/28/16 Amlodipine Besylate* (AMLODIPINE BESYLATE*) 10 Mg Tablet, 10 MG ORAL DAILY, TAB 08/28/16 Med list reviewed/reconciled: Yes Allergies: Coded Allergies: No Known Allergies (Unverified , 08/28/16) Patient History History Provided By: Patient, Medical Record [facility] Narrative Past Medical History: No History, Except For Hx Cardiac Problems: No Hx Hypertension: Yes Hx Cancer: No Review of Systems All Other Systems: negative except mentioned in HPI Physical Exam Vital Signs Date Time Temp Pulse Resp B/P Pulse Ox O2 Delivery O2 Flow Rate FiO2 09/04/16 15:30 97.9 50 16 148/89 98 Room Air Sp02 EP Interpretation: reviewed Labs Laboratory Tests Test 09/04/16 18:28 09/04/16 18:37 09/05/16 06:15 09/05/16 06:25 Urine Color Pale yellow Urine Appearance Clear Urine pH 9 (4.5-8.0) Urine Specific [place] 1.010 (1.005-1.035) Urine Protein 1+ (NEGATIVE) H Urine Glucose (UA) Negative (NEGATIVE) Urine Ketones Negative (NEGATIVE) Urine Occult Blood Negative (NEGATIVE) Urine Nitrite Negative (NEGATIVE) Urine Bilirubin Negative (NEGATIVE) Urine Urobilinogen Normal MG/DL (0.0-1.0) Urine Leukocyte Esterase Negative (NEGATIVE) Urine RBC 0-2 /HPF (0 - 0) H Urine WBC 0-2 /HPF (0 - 0) Urine Squamous Epithelial Cells Few /LPF (NONE/OCC) Urine Bacteria Occasional /HPF (NONE) Urine Opiates Screen Positive (NEGATIVE) H Urine Barbiturates Screen Negative (NEGATIVE) Phencyclidine (PCP) Screen Negative (NEGATIVE) Urine Amphetamines Screen Negative (NEGATIVE) Urine Benzodiazepines Screen Negative (NEGATIVE) Urine Cocaine Screen Negative (NEGATIVE) Urine Marijuana (THC) Screen Negative (NEGATIVE) White Blood Count 16.0 K/UL (4.8-10.8) H 10.2 K/UL (4.8-10.8) Red Blood Count 4.04 M/UL (4.70-6.10) L 3.45 M/UL (4.70-6.10) L Hemoglobin 11.6 G/DL (14.2-18.0) L 10.1 G/DL (14.2-18.0) L Hematocrit 34.7 % (42.0-52.0) L 31.0 % (42.0-52.0) L Mean Corpuscular Volume 86 FL (80-99) 90 FL (80-99) Mean Corpuscular Hemoglobin 28.6 PG (27.0-31.0) 29.1 PG (27.0-31.0) Mean Corpuscular Hemoglobin Concent 33.3 G/DL (32.0-36.0) 32.4 G/DL (32.0-36.0) Red Cell Distribution Width 18.1 % (11.6-14.8) H 17.6 % (11.6-14.8) H Platelet Count 548 K/UL (150-450) H 505 K/UL (150-450) H Mean Platelet Volume 5.0 FL (6.5-10.1) L 5.2 FL (6.5-10.1) L Neutrophils (%) (Auto) 85.3 % (45.0-75.0) H 73.5 % (45.0-75.0) Lymphocytes (%) (Auto) 8.6 % (20.0-45.0) L 17.6 % (20.0-45.0) L Monocytes (%) (Auto) 5.0 % (1.0-10.0) 7.3 % (1.0-10.0) Eosinophils (%) (Auto) 0.6 % (0.0-3.0) 1.5 % (0.0-3.0) Basophils (%) (Auto) 0.5 % (0.0-2.0) 0.2 % (0.0-2.0) Prothrombin Time 9.5 SEC (9.30-11.50) Prothromb Time International Ratio 0.9 (0.9-1.1) Activated Partial Thromboplast Time 28 SEC (23-33) Sodium Level 139 mEQ/L (135-145) 138 mEQ/L (135-145) Potassium Level 3.7 mEQ/L (3.4-4.9) 4.3 mEQ/L (3.4-4.9) Chloride Level 90 mEQ/L (98-107) L 94 mEQ/L (98-107) L Carbon Dioxide Level 37 mEQ/L (20-30) H 35 mEQ/L (20-30) H Anion Gap 12 (5-15) 9 (5-15) Blood Urea Nitrogen 10 mg/dL (7-23) 11 mg/dL (7-23) Creatinine 0.9 mg/dL (0.7-1.2) 1.1 mg/dL (0.7-1.2) Estimat Glomerular Filtration Rate > 60 mL/min (>60) > 60 mL/min (>60) Glucose Level 121 mg/dL (74-106) H 95 mg/dL (74-106) Calcium Level 9.7 mg/dL (8.6-10.2) 9.2 mg/dL (8.6-10.2) Total Bilirubin 0.3 mg/dL (0.0-1.2) 0.4 mg/dL (0.0-1.2) Aspartate Amino Transf (AST/SGOT) 27 U/L (5-40) 21 U/L (5-40) Alanine Aminotransferase (ALT/SGPT) 15 U/L (3-41) 13 U/L (3-41) Alkaline Phosphatase 102 U/L (40-129) 89 U/L (40-129) Troponin I < 0.30 ng/mL (<=0.30) Total Protein 8.1 g/dL (6.6-8.7) 7.2 g/dL (6.6-8.7) Albumin 3.2 g/dL (3.5-5.2) L 2.8 g/dL (3.5-5.2) L Globulin 4.9 g/dL 4.4 g/dL Albumin/Globulin Ratio 0.6 (1.0-2.7) L 0.6 (1.0-2.7) L Lipase 22 U/L (< 60) Amylase Level 93 U/L (10-110) Test 09/05/16 07:00 Activated Partial Thromboplast Time 29 SEC (23-33) General Appearance: well appearing, no apparent distress, alert Head: normocephalic EENT: normal ENT inspection Neck: supple Respiratory: normal breath sounds, no respiratory distress Cardiovascular: normal rate Gastrointestinal: normal inspection, non tender, soft Musculoskeletal: back normal Neurologic: normal inspection, alert, oriented x3, responsive Psychiatric: normal inspection, judgement/insight normal, memory normal Skin: normal inspection, normal color, no rash, warm/dry Lymphatic: normal inspection, no adenopathy Current Medications Current Medications Medications (Trade) Dose Ordered Sig/Jaime Route PRN Reason Start Time Stop Time Status Last Admin Dose Admin Acetaminophen (Tylenol) 650 mg Q4H PRN ORAL fever 09/04/16 20:15 10/04/16 20:14 Al Hydroxide/Mg Hydroxide (Mylanta II) 30 ml Q6H PRN ORAL dyspepsia 09/04/16 20:15 10/04/16 20:14 Amlodipine Besylate (Norvasc) 10 mg DAILY ORAL 09/05/16 09:00 10/05/16 08:59 09/05/16 08:18 Dextrose STAT PRN IV Hypoglycemia 09/04/16 20:15 10/04/16 20:14 Dextrose/Sodium Chloride (D5 0.45% NS) 1,000 ml @ 75 mls/hr [id number] IV 09/04/16 22:00 10/04/16 21:59 09/05/16 13:17 Diphenhydramine HCl (Benadryl) 25 mg Q6H PRN ORAL Itching/Pruritis 09/04/16 20:15 10/04/16 20:14 Heparin Sodium (Porcine) (Heparin 5000 units/ml) 5,000 units EVERY 12 HOURS SUBQ 09/04/16 22:00 10/04/16 21:59 09/05/16 08:20 Metoprolol Succinate (Toprol XL) 50 mg DAILY ORAL 09/05/16 09:00 10/05/16 08:59 09/05/16 08:17 Morphine Sulfate (Morphine Sulfate) 2 mg Q4H PRN IVP severe Pain (Pain Scale 7-10) 09/04/16 20:15 09/11/16 20:14 09/05/16 13:29 Nitroglycerin (Ntg) 0.4 mg Q5M X 3 DOSES PRN SL Prn Chest Pain 09/04/16 20:15 10/04/16 20:14 Ondansetron HCl (Zofran) 4 mg Q6H PRN IVP Nausea & Vomiting 09/04/16 20:15 10/04/16 20:14 Pantoprazole (Protonix) 40 mg DAILY IVP 09/05/16 09:00 10/05/16 08:59 09/05/16 08:18 Piperacillin Sod/ Tazobactam Sod/ Sodium Chloride (Zosyn/Sodium Chloride) 110 ml @ 27.5 mls/hr EVERY 8 HOURS IVPB 09/04/16 23:00 09/11/16 22:59 09/05/16 13:17 Polyethylene Glycol (Miralax) 17 gm HSPRN PRN ORAL Constipation 09/04/16 20:15 10/04/16 20:14 Sucralfate (Carafate) 1 gm FOUR TIMES A DAY ORAL 09/05/16 13:00 10/05/16 12:59 09/05/16 13:17 Tamsulosin HCl 0.4 mg 0.4 mg BEDTIME ORAL 09/04/16 22:00 10/04/16 21:59 Temazepam (Restoril) 15 mg HSPRN PRN ORAL Insomnia 09/04/16 20:15 09/11/16 20:14 GI: Plan Problems: (1) Hepatitis C (2) Cocaine abuse (3) Intractable nausea and vomiting (4) Severe malnutrition (5) Peptic ulcer disease (6) Perforated gastric ulcer Plan [facility] RECORDS >> s/p duodenal and gastric perforation repair, umbilical hernia repair, abdominal washout, see full procedural report in physical chart. s/p EGD SUMMARY OF FINDINGS 08/29/16 1. Irregular lining at the GE junction. 2. Gastric ulcers, see above for details. 3. Duodenal ulcer with a visible vessel and communication with possibly peritoneum, status post hemostasis. UGI with Gastrografin Indication: Gastric ulcer perforation, and expected pneumobilia on recent CT scan, evaluation for leak and possible duodenal biliary fistula Linear metallic densities project immediately inferiorly, and are consistent with prior surgery in this area. Bowel gas pattern is unremarkable. Although not visible on the aml analyst images, subsequent overhead images demonstrate pneumobilia as described on recent CT scan. The esophagus demonstrates grossly normal motility. The stomach demonstrates normal contour and distensibility. No active leak from the duodenum was observed. However, later images demonstrate a linear contrast collection medial is posterior to the duodenal bulb and just medial to the second portion of the duodenum. This presumably represents the common bile duct. However, despite careful observation in multiple obliquities, definite fistulous connection between it and the duodenal bulb could not be visualized. The proximal small bowel appears unremarkable. Impression: Contrast opacifies the common bile duct. However, the entry into the common bile duct was not observed fluoroscopically. Therefore, it is uncertain whether this is due to a fistula between the duodenum and the common bile duct, versus retrograde entry via an incompetent sphincter of Oddi. Suspect the latter although the former is not completely excludable RECOMMENDATIONS: fu surgical consult >> repeat APCT with contrast maintain NPO + IVFs electrolyte correction monitor H&H, transfuse prn for Hgb above 7. cont PPI + Carafate fu biopsy report >> NO H. Pylori present and NO intestinal metaplasia present fu labs Discussed with Dr. Carreno. Thank you for referring this patient, we will follow. Ning López N.P. Sep 05, 2016 16:37
[2016-09-05 20:00] VITALS: BP 121/65
--- NOTE | 2016-09-05 20:35 | Consultation ---
Consult Note Consult Note [id number] WILLIAM MARTINEZ M.D. Sep 05, 2016 20:35
[2016-09-05] MEDS: Tamsulosin 0.4mg cap ORAL SCH (21:20)
--- NOTE | 2016-09-05 22:45 | Consultation ---
DATE OF CONSULTATION: INFECTIOUS DISEASE CONSULTATION CONSULTING PHYSICIAN: Piero Patten M.D. REQUESTING PHYSICIAN: Nilesh Reddy M.D. REASON FOR CONSULTATION: Evaluation of the patient for possible intraabdominal abscess/sepsis and antibiotic management. HISTORY OF PRESENT ILLNESS: The patient is a 56-year-old male, who was admitted to his medical center for abdominal pain, nausea, and vomiting. The patient underwent surgical repair of perforated gastric ulcer. The patient's CT scan shows evidence of possible fluid collection in the gallbladder fossa. An Infectious Disease consultation has been requested for further evaluation of the patient and antibiotic management. PAST MEDICAL HISTORY: 1. History of hepatitis C. 2. History of upper GI bleed. 3. History of gastric and duodenal ulcer. 4. Status post repair of perforated gastric ulcer recently. 5. Anemia. 6. Thrombocytopenia. 7. Cachexia. 8. History of polysubstance abuse. MEDICATIONS: IV Zosyn. ALLERGIES: No known drug allergies. SOCIAL HISTORY: Significant for smoking and history of cocaine abuse. FAMILY HISTORY: Unavailable. REVIEW OF SYSTEMS: The patient overall is a poor historian. Much of the information is gathered through the chart and speaking to the staff. PHYSICAL EXAMINATION: VITAL SIGNS: Temperature 97.5 degrees, pulse 86, respiratory rate 18, T-max 99.7 degrees, and blood pressure 133/77. HEENT: Mild pale conjunctivae. No icterus. NECK: No lymphadenopathy. CHEST: Clear. HEART: S1 and S2. ABDOMEN: Soft. Mild left upper quadrant tenderness. Nondistended. The wound is healing. EXTREMITIES: No cyanosis at this time. NEUROLOGIC: Awake. LABORATORY DATA: White blood cells 10, at the time of admission 16, hemoglobin 10, and platelets 505,000. UA unremarkable. BUN unremarkable. HIV serology negative. CT scan of the abdomen without contrast shows complete cystic fluid in gallbladder fossa. ASSESSMENT: 1. The patient is a 56-year-old male with multiple medical problems, as listed above, who is admitted to this medical center due to nausea and vomiting. 2. Status post abdominal pain. 3. Possible fluid collection in gallbladder fossa, rule out abscess. PLAN: 1. We will continue the patient on IV Zosyn. 2. Monitor CBC. 3. Monitor BMP. 4. Monitor blood culture. 5. CT scan of the abdomen with oral IV contrast tomorrow morning. 6. We will follow surgical recommendations. 7. Based on the patient's clinical course, labs, and cultures, we will give further recommendations. Thank you, Dr. Reddy, for allowing me to participate in the care of this patient. I will follow the patient with you during this hospitalization. Piero Patten M.D. DR: LANA JOB#: [id number] CC:
[2016-09-06] VITALS: BP 119/65
[2016-09-06] MEDS: D5 1/2NS 1,000 ML IV SCH ×2 (01:02→13:23)
[2016-09-06] MEDS: Morphine Sulfate 2mg/ml Inj IVP PRN ×3 (02:37→13:36)
[2016-09-06 04:00] VITALS: BP 131/64
[2016-09-06] MEDS: Piperacillin/Tazobactam 3.375 GM in NS 110 ML IVPB SCH ×2 (04:52→13:22)
[2016-09-06 07:56] VITALS: BP 129/60
[2016-09-06 07:59] LABS: BASOPHILS % (AUTO) 0.6 % (0.0-2.0); LYMPHOCYTES % (AUTO) 17.8 % (20.0-45.0); MEAN CORPUSCULAR HEMOGLOBIN 27.6 PG (27.0-31.0); MEAN CORPUSCULAR HGB CONC 30.8 G/DL (32.0-36.0); MEAN CORPUSCULAR VOLUME 90 FL (80-99); MEAN PLATELET VOLUME 4.8 FL (6.5-10.1); MONOCYTES % (AUTO) 12.1 % (1.0-10.0); NEUTROPHILS % (AUTO) 67.5 % (45.0-75.0); PLATELET COUNT 441 K/UL (150-450); RED BLOOD COUNT 3.19 M/UL (4.70-6.10); RED CELL DISTRIBUTION WIDTH 17.3 % (11.6-14.8); WHITE BLOOD COUNT 6.5 K/UL (4.8-10.8)
[2016-09-06 08:14] LABS: ANION GAP 8 (5-15); CALCIUM 8.6 mg/dL (8.6-10.2); CARBON DIOXIDE 29 mEQ/L (20-30); CHLORIDE 100 mEQ/L (98-107); CREATININE 1.1 mg/dL (0.7-1.2); GLOMERULAR FILTRATION RATE > 60 mL/min (>60); HEMOLYSIS 0; PHOSPHORUS 3.2 mg/dL (2.5-4.8); POTASSIUM 4.4 mEQ/L (3.4-4.9); SODIUM 137 mEQ/L (135-145)
[2016-09-06] MEDS: Sucralfate 1gm tab ORAL SCH ×3 (10:03→18:34)
[2016-09-06] MEDS: Pantoprazole Inj IVP SCH (10:05)
[2016-09-06] MEDS: Heparin 5000 units/ml inj SUBQ SCH (10:06)
[2016-09-06] MEDS ORDERED: D5 1/2NS 1000ml IV ONE (10:33)
[2016-09-06] MEDS ORDERED: Tubing IV Secondary IV ONE (10:33)
[2016-09-06] MEDS ORDERED: NS 275ml ONE (10:33)
--- NOTE | 2016-09-06 10:39 | Wound Nurse Progress Note ---
Wound RN Progress Note Wound Consult skin assessed no pressure ulcers present . noted dry resolving scabs to abdomen,right knee and mid back. sites are clean and dry. SUSAN SUAREZ Sep 06, 2016 10:39
--- NOTE | 2016-09-06 10:46 | General Progress Note ---
Progress Note Progress Note Afebrile. Pt is feeling better. CT with contrast shows no evidence of SBO, no abscess. Biliary tract does not show any contrast. We will order a Fleets enema today. In the abscense of a biliary obstruction plus normal LFTs there is no need for surgical intervention. Humble Prieto MD Sep 06, 2016 10:46
--- NOTE | 2016-09-06 11:35 | Diagnostic Imaging Report ---
Indication: Abdominal pain Technique: Continuous helical transaxial imaging of the abdomen was obtained from the lung bases to the iliac crests during intravenous contrast administration. Coronal 2-D reformats were also obtained. Study obtained in a Siemens sensation [address] Total Dose length Product (DLP): [address] Dose Index Volume (CTDIvol): 10 mGy Comparison: Noncontrast CT 09/04/16. CT abdomen 08/28/16 Findings: Both lower on IV contrast was given for this examination. It is now clear that the gallbladder is present in the gallbladder fossa. There is enhancement of the wall and severe edema of the gallbladder wall present. Similar finding was noted on 08/28/16. Extensive surgical clips are present adjacent to the gallbladder involving the area of the distal stomach in the area the pylorus and first portion of duodenum. Is oral contrast is seen within the stomach lumen. There is little to no contrast within the duodenum but multiple loops of jejunum show oral contrast indicating there is no gastric outlet obstruction. Once again we note pneumobilia and fluid within the dilated intrahepatic biliary ducts. The CBD is better demonstrated. The distal part of the CBD at the level the pancreatic head and ampulla appears unremarkable. The more proximal portion of the CBD as well as the common hepatic duct in the area of the cystic duct shows moderate wall thickening. There is no intrabiliary contrast identified. However presence of air suggests either previous papillotomy or abnormal communication between the enteric tract, probably duodenum and the CBD. The other possibility probably least likely is cholangitis with gas-forming infection. Clinically, the patient does not currently present with cholangitis type picture. Please correlate clinically. There is no abscess identified. The pancreas is unremarkable. Arterial vascular consultations are present. Kidneys are unremarkable. Spleen is unremarkable. There is thickening of the wall of the distal esophagus. Findings could be due to esophagitis. Please correlate clinically. Impression: Evidence of chronic cholecystitis with severe gallbladder wall edema, pneumobilia with biliary ductal dilatation and wall thickening indicative of endobiliary inflammation. Cholangitis is not excluded. The possibility of a choledochoduodenal fistula is not excluded. Endoscopy may be of benefit for further evaluation. Postsurgical changes in the area of the distal antrum/first portion duodenum. Although this area is narrowed, contrast does extend through into the small bowel indicating there is no obstruction. No evidence of abscess. Similar findings noted 08/28/16. Atherosclerotic vascular disease Thickening of the wall the distal esophagus again noted. Endoscopy may be of benefit for further evaluation. The CT scanner at [facility] is accredited by the [employer] and the scans are performed using protocols designed to limit radiation exposure to as low as reasonably achievable to attain images of sufficient resolution adequate for diagnostic evaluation.
[2016-09-06 11:43] VITALS: BP 156/83
--- NOTE | 2016-09-06 12:08 | GI Progress Note ---
Assessment/Plan Problems: (1) Hepatitis C ICD Codes: B19.20 - Unspecified viral hepatitis C without hepatic coma SNOMED: 07448251 (2) Cocaine abuse ICD Codes: F14.10 - Cocaine abuse, uncomplicated SNOMED: 54933362, 561395731 (3) Perforated gastric ulcer ICD Codes: K25.5 - Chronic or unspecified gastric ulcer with perforation SNOMED: 0510760 (4) HTN (hypertension) ICD Codes: I10 - Essential (primary) hypertension SNOMED: 91547713 (5) Severe malnutrition ICD Codes: E43 - Unspecified severe protein-calorie malnutrition SNOMED: 90168215 (6) Peptic ulcer disease ICD Codes: K27.9 - Peptic ulcer, site unspecified, unspecified as acute or chronic, without hemorrhage or perforation SNOMED: 37166967, 72004186 (7) Cholecystitis ICD Codes: K81.9 - Cholecystitis, unspecified SNOMED: 56494982, 73971540 Status: unchanged Status Narrative Discussed with Dr. Carreno. Assessment/Plan [facility] RECORDS >> s/p duodenal and gastric perforation repair, umbilical hernia repair, abdominal washout, see full procedural report in physical chart. s/p EGD SUMMARY OF FINDINGS 08/29/16 1. Irregular lining at the GE junction. 2. Gastric ulcers, see above for details. 3. Duodenal ulcer with a visible vessel and communication with possibly peritoneum, status post hemostasis. fu biopsy report >> NO H. Pylori present and NO intestinal metaplasia present UGI with Gastrografin on previous admission reviewed, see lifetime report. RECOMMENDATIONS: will cancel EGD tomorrow. Follow up as outpatient for EGD with [place] to close gastric fistula. (equipment must be ordered) Adv diet as tolerated, ok for dc once abdominal pain and N/V controlled. fu surgical consult >> repeat APCT with contrast >> no surgical intervention needed at this time electrolyte correction monitor H&H, transfuse prn for Hgb above 7. cont PPI + Carafate fleets enema fu labs Subjective Subjective hungry Objective Last 24 Hour Vital Signs Date Time Temp Pulse Resp B/P Pulse Ox O2 Delivery O2 Flow Rate FiO2 09/06/16 11:43 97.7 54 22 156/83 97 Room Air 09/06/16 10:03 49 129/60 09/06/16 10:02 49 129/60 09/06/16 07:56 98.1 49 19 129/60 100 Room Air 09/06/16 07:04 98.1 09/06/16 04:00 98.1 57 18 131/64 100 Room Air 09/06/16 00:00 99.1 62 18 119/65 98 Room Air 09/05/16 20:00 100.0 65 18 121/65 100 Room Air 09/05/16 16:13 98.0 83 22 133/77 99 Room Air 09/05/16 12:10 97.5 71 22 127/70 99 Room Air Intake and Output 09/05/16 09/06/16 19:00 07:00 Intake Total 1237.5 ml 1545.0 ml Output Total 400 ml 1150 ml Balance 837.5 ml 395.0 ml Intake Oral 480 ml 480 ml IV Total 757.5 ml 1065.0 ml Output Urine Total 400 ml 1150 ml # Voids 2 4 # Bowel Movements 1 Laboratory Tests Test 09/06/16 07:10 White Blood Count 6.5 K/UL (4.8-10.8) Red Blood Count 3.19 M/UL (4.70-6.10) L Hemoglobin 8.8 G/DL (14.2-18.0) L Hematocrit 28.6 % (42.0-52.0) L Mean Corpuscular Volume 90 FL (80-99) Mean Corpuscular Hemoglobin 27.6 PG (27.0-31.0) Mean Corpuscular Hemoglobin Concent 30.8 G/DL (32.0-36.0) L Red Cell Distribution Width 17.3 % (11.6-14.8) H Platelet Count 441 K/UL (150-450) Mean Platelet Volume 4.8 FL (6.5-10.1) L Neutrophils (%) (Auto) 67.5 % (45.0-75.0) Lymphocytes (%) (Auto) 17.8 % (20.0-45.0) L Monocytes (%) (Auto) 12.1 % (1.0-10.0) H Eosinophils (%) (Auto) 2.0 % (0.0-3.0) Basophils (%) (Auto) 0.6 % (0.0-2.0) Sodium Level 137 mEQ/L (135-145) Potassium Level 4.4 mEQ/L (3.4-4.9) Chloride Level 100 mEQ/L (98-107) Carbon Dioxide Level 29 mEQ/L (20-30) Anion Gap 8 (5-15) Blood Urea Nitrogen 12 mg/dL (7-23) Creatinine 1.1 mg/dL (0.7-1.2) Estimat Glomerular Filtration Rate > 60 mL/min (>60) Glucose Level 98 mg/dL (74-106) Calcium Level 8.6 mg/dL (8.6-10.2) Phosphorus Level 3.2 mg/dL (2.5-4.8) Magnesium Level 2.0 mg/dL (1.7-2.5) Height (Feet): 5 Height (Inches): 11.00 Weight (Pounds): 108 General Appearance: no apparent distress, alert Cardiovascular: normal rate Respiratory/Chest: normal breath sounds, no respiratory distress Abdominal Exam: normal bowel sounds, non tender, soft Extremities: normal range of motion Ning López N.P. Sep 06, 2016 12:08
--- NOTE | 2016-09-06 14:50 | Infectious Diseases Prog Note ---
Assessment/Plan Assessment/Plan Assessment: 56 y/o male with remote h/o duodenal and gastric perforation repair/umbilical hernia repair/abdominal washout, s/p recent admission for EGD demonstrating PUD neg for H pylori and a duodenal ulcer requiring hemostasis, hepatitis C, anemia , thrombocytopenia, cachexia, and h/o polysubstance abuse, now on day 2 empiric IV zosyn for n/v, RUQ pain, leukocytosis, and CT a/p with contrast demonstrating chronic cholecystitis, possible early ascending cholangitis, but no evidence of abscess. This CT nor the prior UGI gastrograffin hasn't apparently completely ruled out choledochoduodenal fistula. His leukocytosis has resolved on empiric zosyn, LFTs have continued to be normal , abd pain has resolved, and he no longer has any biliary symptoms. His rapid improvement suggests he could be transitioned to PO abx in the next day or so if he continues to do well and if no surgical intervention required. chronic cholecystitis, possible acute ascending cholangitis, abscess excluded s/p leukocytosis, resolved n/v, resolved PLAN: Continue IV zosyn day 2. If no surgical intervention is warranted, once he is tolerating full diet, will transition to PO ciprofloxacin 500mg twice daily and flagyl 500mg po q8hr to complete a 10 day course. Monitor CBC. Monitor BMP. We will follow surgical recommendations. Please call me with questions, covering for Dr. Patten. [phone] Subjective Allergies: Coded Allergies: No Known Allergies (Unverified , 08/28/16) Subjective Afebrile, reports decreased RUQ abd pain, no chills, and no residual n/v . Objective Vital Signs Last 24 Hour Vital Signs Date Time Temp Pulse Resp B/P Pulse Ox O2 Delivery O2 Flow Rate FiO2 09/06/16 11:43 97.7 54 22 156/83 97 Room Air 09/06/16 10:03 49 129/60 09/06/16 10:02 49 129/60 09/06/16 07:56 98.1 49 19 129/60 100 Room Air 09/06/16 07:04 98.1 09/06/16 04:00 98.1 57 18 131/64 100 Room Air 09/06/16 00:00 99.1 62 18 119/65 98 Room Air 09/05/16 20:00 100.0 65 18 121/65 100 Room Air 09/05/16 16:13 98.0 83 22 133/77 99 Room Air Height (Feet): 5 Height (Inches): 11.00 Weight (Pounds): 108 HEENT: anicteric, mucous membranes moist, PERRL, other - no thrush Respiratory/Chest: chest wall non-tender, lungs clear, normal breath sounds, no respiratory distress Cardiovascular: normal peripheral pulses, normal rate, regular rhythm, no gallop/murmur, no JVD Abdomen: soft, non tender, hypoactive bowel sounds, other - healed midline surgical scar. multiple scattered superficial skin scars. Genitourinary: normal external genitalia Extremities: no cyanosis, no clubbing, no edema, pedal pulses normal Skin: no rash, other - old healed superficial scars on b/l pretibial spaces. Objective Radiology Patient : ANICETO DOYLE Referring Physician: JENNIFER BERGERON ID Number: [id number] Service Date: 09/06/16 : 1960 Report Date: 09/06/16 Gender: M Accession No.: [id number] Location: Procedure: CT Abdomen w Contrast Indication: Abdominal pain Technique: Continuous helical transaxial imaging of the abdomen was obtained from the lung bases to the iliac crests during intravenous contrast administration. Coronal 2-D reformats were also obtained. Study obtained in a Siemens sensation [address] Total Dose length Product (DLP): [address] Dose Index Volume (CTDIvol): 10 mGy Comparison: Noncontrast CT 09/04/16. CT abdomen 08/28/16 Findings: Both lower on IV contrast was given for this examination. It is now clear that the gallbladder is present in the gallbladder fossa. There is enhancement of the wall and severe edema of the gallbladder wall present. Similar finding was noted on 08/28/16. Extensive surgical clips are present adjacent to the gallbladder involving the area of the distal stomach in the area the pylorus and first portion of duodenum. Is oral contrast is seen within the stomach lumen. There is little to no contrast within the duodenum but multiple loops of jejunum show oral contrast indicating there is no gastric outlet obstruction. Once again we note pneumobilia and fluid within the dilated intrahepatic biliary ducts. The CBD is better demonstrated. The distal part of the CBD at the level the pancreatic head and ampulla appears unremarkable. The more proximal portion of the CBD as well as the common hepatic duct in the area of the cystic duct shows moderate wall thickening. There is no intrabiliary contrast identified. However presence of air suggests either previous papillotomy or abnormal communication between the enteric tract, probably duodenum and the CBD. The other possibility probably least likely is cholangitis with gas-forming infection. Clinically, the patient does not currently present with cholangitis type picture. Please correlate clinically. There is no abscess identified. The pancreas is unremarkable. Arterial vascular consultations are present. Kidneys are unremarkable. Spleen is unremarkable. There is thickening of the wall of the distal esophagus. Findings could be due to esophagitis. Please correlate clinically. Impression: Evidence of chronic cholecystitis with severe gallbladder wall edema, pneumobilia with biliary ductal dilatation and wall thickening indicative of endobiliary inflammation. Cholangitis is not excluded. The possibility of a choledochoduodenal fistula is not excluded. Endoscopy may be of benefit for further evaluation. Postsurgical changes in the area of the distal antrum/first portion duodenum. Although this area is narrowed, contrast does extend through into the small bowel indicating there is no obstruction. No evidence of abscess. Similar findings noted 08/28/16. Atherosclerotic vascular disease Thickening of the wall the distal esophagus again noted. Endoscopy may be of benefit for further evaluation. The CT scanner at [facility] is accredited by the [employer] and the scans are performed using protocols designed to limit radiation exposure to as low as reasonably achievable to attain images of sufficient resolution adequate for diagnostic evaluation. Dictated By: ALESHA FOWLER M.D. Electronically Signed By: ALESHA FOWLER M.D. Signed Date/Time 09/06/16 [id number] CC: JENNIFER BERGERON; KASH PAUL Laboratory Tests Test 09/06/16 07:10 White Blood Count 6.5 K/UL (4.8-10.8) Red Blood Count 3.19 M/UL (4.70-6.10) L Hemoglobin 8.8 G/DL (14.2-18.0) L Hematocrit 28.6 % (42.0-52.0) L Mean Corpuscular Volume 90 FL (80-99) Mean Corpuscular Hemoglobin 27.6 PG (27.0-31.0) Mean Corpuscular Hemoglobin Concent 30.8 G/DL (32.0-36.0) L Red Cell Distribution Width 17.3 % (11.6-14.8) H Platelet Count 441 K/UL (150-450) Mean Platelet Volume 4.8 FL (6.5-10.1) L Neutrophils (%) (Auto) 67.5 % (45.0-75.0) Lymphocytes (%) (Auto) 17.8 % (20.0-45.0) L Monocytes (%) (Auto) 12.1 % (1.0-10.0) H Eosinophils (%) (Auto) 2.0 % (0.0-3.0) Basophils (%) (Auto) 0.6 % (0.0-2.0) Sodium Level 137 mEQ/L (135-145) Potassium Level 4.4 mEQ/L (3.4-4.9) Chloride Level 100 mEQ/L (98-107) Carbon Dioxide Level 29 mEQ/L (20-30) Anion Gap 8 (5-15) Blood Urea Nitrogen 12 mg/dL (7-23) Creatinine 1.1 mg/dL (0.7-1.2) Estimat Glomerular Filtration Rate > 60 mL/min (>60) Glucose Level 98 mg/dL (74-106) Calcium Level 8.6 mg/dL (8.6-10.2) Phosphorus Level 3.2 mg/dL (2.5-4.8) Magnesium Level 2.0 mg/dL (1.7-2.5) Current Medications Medications (Trade) Dose Ordered Sig/Jaime Route PRN Reason Start Time Stop Time Status Last Admin Dose Admin Acetaminophen (Tylenol) 650 mg Q4H PRN ORAL fever 09/04/16 20:15 10/04/16 20:14 Al Hydroxide/Mg Hydroxide (Mylanta II) 30 ml Q6H PRN ORAL dyspepsia 09/04/16 20:15 10/04/16 20:14 Amlodipine Besylate (Norvasc) 10 mg DAILY ORAL 09/05/16 09:00 10/05/16 08:59 09/06/16 10:02 Dextrose STAT PRN IV Hypoglycemia 09/04/16 20:15 10/04/16 20:14 Dextrose/Sodium Chloride (D5 0.45% NS) 1,000 ml @ 75 mls/hr [id number] IV 09/04/16 22:00 10/04/16 21:59 09/06/16 13:23 Diphenhydramine HCl (Benadryl) 25 mg Q6H PRN ORAL Itching/Pruritis 09/04/16 20:15 10/04/16 20:14 Heparin Sodium (Porcine) (Heparin 5000 units/ml) 5,000 units EVERY 12 HOURS SUBQ 09/04/16 22:00 10/04/16 21:59 09/06/16 10:06 Metoprolol Succinate (Toprol XL) 50 mg DAILY ORAL 09/05/16 09:00 10/05/16 08:59 09/06/16 10:03 Morphine Sulfate (Morphine Sulfate) 2 mg Q4H PRN IVP severe Pain (Pain Scale 7-10) 09/04/16 20:15 09/11/16 20:14 09/06/16 13:36 Nitroglycerin (Ntg) 0.4 mg Q5M X 3 DOSES PRN SL Prn Chest Pain 09/04/16 20:15 10/04/16 20:14 Ondansetron HCl (Zofran) 4 mg Q6H PRN IVP Nausea & Vomiting 09/04/16 20:15 10/04/16 20:14 Pantoprazole (Protonix) 40 mg DAILY IVP 09/05/16 09:00 10/05/16 08:59 09/06/16 10:05 Piperacillin Sod/ Tazobactam Sod/ Sodium Chloride (Zosyn/Sodium Chloride) 110 ml @ 27.5 mls/hr EVERY 8 HOURS IVPB 09/04/16 23:00 09/11/16 22:59 09/06/16 13:22 Polyethylene Glycol (Miralax) 17 gm HSPRN PRN ORAL Constipation 09/04/16 20:15 10/04/16 20:14 Sucralfate (Carafate) 1 gm FOUR TIMES A DAY ORAL 09/05/16 13:00 10/05/16 12:59 09/06/16 13:21 Tamsulosin HCl 0.4 mg 0.4 mg BEDTIME ORAL 09/04/16 22:00 10/04/16 21:59 09/05/16 21:20 Temazepam (Restoril) 15 mg HSPRN PRN ORAL Insomnia 09/04/16 20:15 09/11/16 20:14 09/05/16 22:36 Noe Appiah M.D. Sep 06, 2016 14:50
--- NOTE | 2016-09-06 15:53 | Pulmonology Progress Note ---
Assessment/Plan Problems: (1) Cholecystitis (2) Intractable nausea and vomiting (3) Severe malnutrition (4) Peptic ulcer disease (5) Hepatitis C (6) Cocaine abuse Assessment/Plan continue abx all notes reviewed fleet enema for constipation dc planning for am Subjective ROS Limited/Unobtainable: No Constitutional: Reports: no symptoms HEENT: Repors: no symptoms Allergies: Coded Allergies: No Known Allergies (Unverified , 08/28/16) Objective Last 24 Hour Vital Signs Date Time Temp Pulse Resp B/P Pulse Ox O2 Delivery O2 Flow Rate FiO2 09/06/16 14:06 97.7 09/06/16 11:43 97.7 54 22 156/83 97 Room Air 09/06/16 10:03 49 129/60 09/06/16 10:02 49 129/60 09/06/16 07:56 98.1 49 19 129/60 100 Room Air 09/06/16 04:00 98.1 57 18 131/64 100 Room Air 09/06/16 00:00 99.1 62 18 119/65 98 Room Air 09/05/16 20:00 100.0 65 18 121/65 100 Room Air 09/05/16 16:13 98.0 83 22 133/77 99 Room Air Intake and Output 09/05/16 09/06/16 19:00 07:00 Intake Total 1237.5 ml 1545.0 ml Output Total 400 ml 1150 ml Balance 837.5 ml 395.0 ml Intake Oral 480 ml 480 ml IV Total 757.5 ml 1065.0 ml Output Urine Total 400 ml 1150 ml # Voids 2 4 # Bowel Movements 1 General Appearance: WD/WN HEENT: normocephalic, atraumatic Respiratory/Chest: chest wall non-tender, lungs clear Cardiovascular: normal peripheral pulses, regular rhythm Abdomen: normal bowel sounds, soft, non tender Genitourinary: normal external genitalia Extremities: no cyanosis Skin: no rash Laboratory Tests 09/06/16 07:10: White Blood Count 6.5, Red Blood Count 3.19L, Hemoglobin 8.8L, Hematocrit 28.6L , Mean Corpuscular Volume 90, Mean Corpuscular Hemoglobin 27.6, Mean Corpuscular Hemoglobin Concent 30.8L, Red Cell Distribution Width 17.3H, Platelet Count 441, Mean Platelet Volume 4.8L, Neutrophils (%) (Auto) 67.5, Lymphocytes (%) (Auto) 17.8L, Monocytes (%) (Auto) 12.1H, Eosinophils (%) (Auto ) 2.0, Basophils (%) (Auto) 0.6, Sodium Level 137, Potassium Level 4.4, Chloride Level 100, Carbon Dioxide Level 29, Anion Gap 8, Blood Urea Nitrogen 12 , Creatinine 1.1, Estimat Glomerular Filtration Rate > 60, Glucose Level 98, Calcium Level 8.6, Phosphorus Level 3.2, Magnesium Level 2.0 Current Medications Medications (Trade) Dose Ordered Sig/Jaime Route PRN Reason Start Time Stop Time Status Last Admin Dose Admin Acetaminophen (Tylenol) 650 mg Q4H PRN ORAL fever 09/04/16 20:15 10/04/16 20:14 Al Hydroxide/Mg Hydroxide (Mylanta II) 30 ml Q6H PRN ORAL dyspepsia 09/04/16 20:15 10/04/16 20:14 Amlodipine Besylate (Norvasc) 10 mg DAILY ORAL 09/05/16 09:00 10/05/16 08:59 09/06/16 10:02 Dextrose STAT PRN IV Hypoglycemia 09/04/16 20:15 10/04/16 20:14 Dextrose/Sodium Chloride (D5 0.45% NS) 1,000 ml @ 75 mls/hr [id number] IV 09/04/16 22:00 10/04/16 21:59 09/06/16 13:23 Diphenhydramine HCl (Benadryl) 25 mg Q6H PRN ORAL Itching/Pruritis 09/04/16 20:15 10/04/16 20:14 Heparin Sodium (Porcine) (Heparin 5000 units/ml) 5,000 units EVERY 12 HOURS SUBQ 09/04/16 22:00 10/04/16 21:59 09/06/16 10:06 Metoprolol Succinate (Toprol XL) 50 mg DAILY ORAL 09/05/16 09:00 10/05/16 08:59 09/06/16 10:03 Morphine Sulfate (Morphine Sulfate) 2 mg Q4H PRN IVP severe Pain (Pain Scale 7-10) 09/04/16 20:15 09/11/16 20:14 09/06/16 13:36 Nitroglycerin (Ntg) 0.4 mg Q5M X 3 DOSES PRN SL Prn Chest Pain 09/04/16 20:15 10/04/16 20:14 Ondansetron HCl (Zofran) 4 mg Q6H PRN IVP Nausea & Vomiting 09/04/16 20:15 10/04/16 20:14 Pantoprazole (Protonix) 40 mg DAILY IVP 09/05/16 09:00 10/05/16 08:59 09/06/16 10:05 Piperacillin Sod/ Tazobactam Sod/ Sodium Chloride (Zosyn/Sodium Chloride) 110 ml @ 27.5 mls/hr EVERY 8 HOURS IVPB 09/04/16 23:00 09/11/16 22:59 09/06/16 13:22 Polyethylene Glycol (Miralax) 17 gm HSPRN PRN ORAL Constipation 09/04/16 20:15 10/04/16 20:14 Sodium Phosphate (Fleet's Sodium Phosl Enema) 133 ml ONCE ONCE RECTAL 09/06/16 21:00 09/06/16 21:01 Sucralfate (Carafate) 1 gm FOUR TIMES A DAY ORAL 09/05/16 13:00 10/05/16 12:59 09/06/16 13:21 Tamsulosin HCl 0.4 mg 0.4 mg BEDTIME ORAL 09/04/16 22:00 10/04/16 21:59 09/05/16 21:20 Temazepam (Restoril) 15 mg HSPRN PRN ORAL Insomnia 09/04/16 20:15 09/11/16 20:14 09/05/16 22:36 KASH PAUL Sep 06, 2016 15:52
[2016-09-06 16:16] VITALS: BP 144/77
[2016-09-06] MEDS ORDERED: CIPRO500 MG/51 PO (16:31)
[2016-09-06] MEDS ORDERED: METRONIDAZOLE500 MG ORAL (16:32)
[2016-09-06 20:00] VITALS: BP 139/68
[2016-09-06] MEDS ORDERED: Fleet's Enema 133ml RECTAL ONE (21:00)
--- NOTE | 2016-09-07 21:51 | Discharge Summary ---
Discharge Summary Hospital Course Date of Admission Sep 04, 2016 at 18:42 Date of Discharge Sep 06, 2016 at 21:48 Admitting Diagnosis vomiting, dehydration HPI Jean Chand is a 56 year old male who was admitted on Sep 04, 2016 at 18:42 for Vomiting,Dehydration Hospital Course [id number] Discharge Discharge Disposition Patient was discharged to SNF/Subacute Facility(03) Discharge Diagnoses: Tressa Rico NP Sep 07, 2016 21:51
--- NOTE | 2016-09-08 13:45 | Discharge Summary 2 SIG ---
DATE OF ADMISSION: 09/04/2016 DATE OF DISCHARGE: 09/06/2016 CONSULTANTS: 1. Piero Patten M.D. 2. Yvan Carreno M.D. 3. Baldo Recio M.D. BRIEF HOSPITAL COURSE: The patient is a 56-year-old male with recent hospitalization for upper gastrointestinal bleed at [facility] and prior hospitalization at [facility], who was sent in from senior living for evaluation of vomiting for the past two days. He has a history of ulcer disease and has reported multiple episodes of vomiting over the past few days. On arrival to ED, laboratories showed elevated WBC. Urine toxicology was positive for opiates. CT of the abdomen and pelvis without contrast showed limited study. The patient was admitted for abdominal pain, intractable nausea and vomiting, peptic ulcer disease, severe protein-calorie malnutrition, and hepatitis C. He was placed on NPO and was given IV hydration. Surgical evaluation done. CT of the abdomen and pelvis with contrast showed no evidence of small bowel obstruction. No . Biliary tract did not show any contrast. LFTs were normal and there was absence of biliary obstruction. There was no need for surgical intervention. Diet was advanced as tolerated. Esophagogastroduodenoscopy findings from prior admission showed irregular lining at the gastroesophageal junction with presence of gastric and duodenal ulcers. Biopsy report was negative for H. pylori. No intestinal metaplasia. He was advised to undergo esophagogastroduodenoscopy with bear-claw to close gastric fistula. He was given Fleet enema, proton pump inhibitors, and Carafate. He was tolerating diet and the patient was eventually discharged back to long term facility to continue ciprofloxacin and Flagyl for 10 more days. FINAL DIAGNOSES: 1. Intractable nausea and vomiting. 2. Severe protein-calorie malnutrition. 3. Peptic ulcer disease. 4. Hepatitis C. 5. Chronic cholecystitis, possible acute ascending cholangitis, abscess excluded. 6. Nausea and vomiting, resolved. Nilesh Reddy M.D. I have been assigned to dictate discharge summary on this account and I was not involved in the patient's management. Tressa Rico N.P. DR: FABY JOB#: [id number] CC:
== END 2016-09-06 21:48 | DRG 383 ==
LOC: EDBD 15:37 → EMR 15:55 → 4E 18:42 → EDBEDREQ 20:53 → 4E 09-06 08:06
DX: K26.9 Duodenal ulcer, unspecified as acute or chronic, without hemorrhage or perforation (principal); E43 Unspecified severe protein-calorie malnutrition; K31.6 Fistula of stomach and duodenum; K83.0 Cholangitis; Z68.1 Body mass index [BMI] 19.9 or less, adult; K25.9 Gastric ulcer, unspecified as acute or chronic, without hemorrhage or perforation; K27.9 Peptic ulcer, site unspecified, unspecified as acute or chronic, without hemorrhage or perforation; F14.10 Cocaine abuse, uncomplicated; B19.20 Unspecified viral hepatitis C without hepatic coma; I10 Essential (primary) hypertension; R11.2 Nausea with vomiting, unspecified; K81.1 Chronic cholecystitis; Z87.891 Personal history of nicotine dependence
CPT/HCPCS: 36415; 74160; 74176; 80048; 80053; 80300; 81003; 82150; 83690; 83735; 84100; 84484; 85025; 85610; 85730; 86850; 86900; 86901; 87040; J2765